=== PATIENT | female | born 1995 | race Caucasian/White ===

== ENCOUNTER → 2018-03-04 10:52 | Outpatient (CLI) | payer BC, SELFPAY ==
[2018-03-04 15:17] LABS: Chlamydia Trachomatis by PCR Negative (Negative); Neisserai gonorrhoeae by PCR Negative (Negative); Probe Check PASS; Sample Adequacy Control PASS; Specimen Processing Control PASS
== END ==
PROVIDERS: Visit Provider Obstetrics & Gynecology
DX: Z11.3 Encounter for screening for infections with a predominantly sexual mode of transmission (principal)
CPT/HCPCS: 87491; 87591

== ENCOUNTER → 2018-03-17 16:14 | Outpatient (CLI) | payer BC, OTHER, SELFPAY ==
[2018-03-17 17:24] LABS: Absolute Lymphocyte Count 3.15 X10^3/ul (0.83-4.51); Basophil# 0.05 X10^3/uL; Basophil% 0.3 % (0-1); Eosinophil# 0.27 X10^3/uL; Eosinophils% 1.8 % (0-5); Hematocrit 42.5 % (37-47); Hemoglobin 14.1 g/dl (12.0-15.0); Lymphocyte # 3.15 X10^3/ul (4.0); Lymphocyte % 21.3 % (19-41); Mean Corp Hgb Conc 33.2 g/gl (32-36); Mean Corpuscular Hgb 28.7 pg (27.0-32.0); Mean Corpuscular Volume 86.4 fL (81-99); Mean Platelet Vol. 9.1 fl (6.2-12.0); Monocyte# 1.26 X10^3/uL; Monocyte% 8.5 % (0-10); Neutrophil # 10.03 X10^3/uL (2.7-7.7); Neutrophil % 67.9 % (47-70); Platelet Count 243 K/mm3 (150-450); RBC Distribution Width SD 41.3 fl (35.1-43.9); Red Blood Count 4.92 M/mm3 (4.2-5.4); White Blood Count 14.8 K/mm3 (4.4-11.0)
[2018-03-17 17:25] LABS: POSITIVE COUNT NO; POSITIVE DIFFERENTIAL NO; POSITIVE MORPHOLOGY NO
[2018-03-17 17:42] LABS: Color, Urine Yellow (Yellow); Glucose, Dipstick Normal (Normal); Ketone-Dipstick Negative (Negative); Leukocyte Esterase-Dipstick Negative /ul (Negative); Nitrite-Dipstick Negative (Negative); Occult Blood-Urine Negative /ul (Negative); Protein-Dipstick Negative (Negative); Urine Bilirubin Dipstick Negative (Negative); Urine Clarity Clear (Clear); Urine Urobilinogen Normal (Normal)
[2018-03-17 17:51] LABS: Thyroid Stim Hormone (TSH) 1.54 uIU/mL (0.358-3.74)
[2018-03-17 18:02] LABS: Amphetamine Urine VISTA NEGATIVE (<1000 ng/mL); Barbiturate Urine VISTA NEGATIVE (< 200 ng/mL); Benzodiazepine Urine VISTA NEGATIVE (< 200 ng/mL); Cocaine Urine VISTA NEGATIVE (< 300 ng/mL); Ecstacy Urine VISTA NEGATIVE (< 500 ng/mL); Methadone Urine VISTA NEGATIVE (< 300 ng/mL); PCP Urine VISTA NEGATIVE (< 25 ng/mL); THC Urine VISTA NEGATIVE (< 50 ng/mL); Vista UDS pH Range 6
[2018-03-17 18:10] LABS: COTININE Drug Screen Positive (<200 ng/mL)
[2018-03-17 18:29] LABS: HIV - WCH Non-Reactive (Nonreactive); Rubella IgG 97.5 IU/mL
[2018-03-19 02:34] LABS: Prenatal RPR NONREACTIVE (NONREACTIVE)
[2018-03-19 11:28] LABS: HEPATITIS B SURFACE AG Negative (Negative); Hep C Antibodies <0.1 s/co ratio (0.0-0.9)
== END ==
LOC: WOBLAB 16:16
PROVIDERS: Visit Provider Obstetrics & Gynecology
DX: Z34.81 Encounter for supervision of other normal pregnancy, first trimester (principal)
CPT/HCPCS: 36415; 80307; 81002; 84443; 85025; 86703; 86762; 86803; 87340

== ENCOUNTER → 2018-08-09 13:28 | Outpatient (CLI) | payer MEDICAID, SELFPAY ==
[2018-08-09 15:47] LABS: Hematocrit 33.9 % (37-47); Hemoglobin 11.4 g/dl (12.0-15.0); Mean Corp Hgb Conc 33.6 g/gl (32-36); Mean Corpuscular Hgb 28.8 pg (27.0-32.0); Mean Corpuscular Volume 85.6 fL (81-99); Mean Platelet Vol. 8.1 fl (6.2-12.0); Platelet Count 294 K/mm3 (150-450); RBC Distribution Width CV 12.8 % (11.6-14.6); RBC Distribution Width SD 40.2 fl (35.1-43.9); Red Blood Count 3.96 M/mm3 (4.2-5.4); White Blood Count 20.6 K/mm3 (4.4-11.0)
[2018-08-09 15:48] LABS: Scan Indicated on CBC? Y/N NO
[2018-08-09 15:52] LABS: Glucose Challenge Gest 1H 50g 103 mg/dL (70-140)
== END ==
PROVIDERS: Visit Provider Obstetrics & Gynecology
DX: Z34.83 Encounter for supervision of other normal pregnancy, third trimester (principal)
CPT/HCPCS: 36415; 82950; 85027

== ENCOUNTER 2018-09-19 21:09 | Outpatient (CLI) | payer MEDICAID, SELFPAY ==
[2018-09-19 21:56] VITALS: BMI 38.2
[2018-09-19] MEDS: Acetaminophen/Butalbital/Caffe 1 Tablet 2 TABLET PO (22:44)
--- NOTE | 2018-09-19 23:55 | OB.TRI.NOTE ---
- Problem List (1) 34 weeks gestation of Status: Acute (2) Headache Status: Acute Qualifiers: Headache chronicity pattern: acute headache Intractability: not intractable (3) False labor Status: Acute History of Present Illness Date of Service: 09/19/18 Was patient seen by the physician?: No Reason For Visit: R/O LABOR Final ISATU: 10/31/18 Final ISATU Source: US <20 weeks Gestational age: 34 weeks 0 days History of Present Illness: 23yo G1 at 34 wga with h/o contractions and headache. Allergies tramadol Adverse Reaction (Verified 09/19/18 22:27) Other NST - FHR Rate Baby A Baseline: 130 Variability:: Moderate Accelerations:: 15 x 15 Decelerations:: None NST Reactive:: Yes FHR Category:: Category I Uterine Activity:: 01/30 Impression/Plan Cat I FHR False labor d/c home
== END 2018-09-20 00:15 | disposition home or self-care (01) ==
LOC: WPOUT 21:41 → WP 21:41
PROVIDERS: Visit Provider Obstetrics & Gynecology
DX: O47.03 False labor before 37 completed weeks of gestation, third trimester (principal); Z3A.34 34 weeks gestation of pregnancy
CPT/HCPCS: 59025; 59050; 99218; G0378

== ENCOUNTER → 2018-10-06 15:10 | Outpatient (CLI) | payer MEDICAID, SELFPAY | PROVIDERS: Visit Provider Obstetrics & Gynecology | DX: Z36.85 Encounter for antenatal screening for Streptococcus B (principal) | CPT/HCPCS: 87081 ==

== ENCOUNTER 2018-10-13 20:47 | Outpatient (CLI) | payer MEDICAID, SELFPAY ==
[2018-10-13 22:12] VITALS: BMI 37.9
--- NOTE | 2018-10-13 23:50 | OB.TRI.NOTE ---
History of Present Illness Date of Service: 10/13/18 Was patient seen by the physician?: No Reason For Visit: R/O LABOR Date of Service: 10/13/18 Final ISATU: 10/31/18 Final ISATU Source: US <20 weeks Gestational age: 37 Weeks and 3 Days History of Present Illness: Complaints of contractions possible leaking amniotic fluid Allergies tramadol Adverse Reaction (Verified 10/13/18 22:17) Other anxiety Physical Exam General: Alert, Oriented x3, Cooperative, No apparent distress Cardiovascular: Regular rate, Regular Rhythm Lungs: Clear to auscultation, Normal air movement Abdomen: Soft, Non Tender, Non-Distended, Gravid, Appropriate for Gestational Age Extremities:: No edema Neurological: Neuro grossly intact ROVING WINDER: Normal external genitalia Estimated gestational size: Appropriate for gestational size Presentation: Cephalic Cervix Dilation (cm): 0 Station: -3 Effacement (%): 25 NST - FHR Rate Baby A Baseline: 130s Variability:: Moderate Accelerations:: 15 x 15 Decelerations:: None NST Reactive:: Yes, Appropriate for gestational age FHR Category:: Category I Uterine Activity:: irregular not felt strongly Impression/Plan ROM + testing negative. UA essentially normal. Cervix closed. Possibly in latent phase labor but no evidence of SROM or active labor.
--- NOTE | 2018-10-13 23:54 | OB.TRI.HP_ITS ---
History of Present Illness Date of Service: 10/13/18 Was patient seen by the physician?: No Reason For Visit: R/O LABOR Date of Service: 10/13/18 Final ISATU: 10/31/18 Final ISATU Source: US <20 weeks Gestational age: 37 Weeks and 3 Days History of Present Illness: Complaints of contractions possible leaking amniotic fluid Allergies tramadol Adverse Reaction (Verified 10/13/18 22:17) Other anxiety Physical Exam General: Alert, Oriented x3, Cooperative, No apparent distress Cardiovascular: Regular rate, Regular Rhythm Lungs: Clear to auscultation, Normal air movement Abdomen: Soft, Non Tender, Non-Distended, Gravid, Appropriate for Gestational Age Extremities:: No edema Neurological: Neuro grossly intact OPEN PIT QUARRY 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 UA essentially normal. Cervix closed. Possibly in latent phase labor but no evidence of SROM or active labor.
[2018-10-14 02:41] LABS: Color, Urine STRAW (Yellow); Glucose, Dipstick NEGATIVE (Normal); Ketone-Dipstick Negative (Negative); Mucous, Urine 0 SEEN /hpf (<or=2+); Red Blood Cells-Urine 0 SEEN /hpf (0-5); Urine Bilirubin Dipstick Negative (Negative); Urine Clarity Clear (Clear)
[2018-10-14 02:42] LABS: Leukocyte Esterase-Dipstick 100 /ul (Negative); Nitrite-Dipstick Negative (Negative); Occult Blood-Urine Negative /ul (Negative); Protein-Dipstick Negative (Negative); Urine Urobilinogen Normal (Normal)
[2018-10-14 02:43] LABS: Bacteria RARE /hpf (None Seen); Squamous Epithelial Cells - UA 0-5 SEEN /hpf (5-10); White Blood Cells 0-5 SEEN /hpf (0-5)
[2018-10-14 02:46] LABS: ROM Internal Control Test YES-OK TO RESULT pt. (Internal QC); ROM Patient Test Negative (Negative)
== END 2018-10-13 22:35 | disposition home or self-care (01) ==
LOC: WPOUT 21:15 → WP 22:03
PROVIDERS: Family Provider Family Medicine; PCP Family Medicine; Referring Provider Obstetrics & Gynecology; Visit Provider Obstetrics & Gynecology
DX: Z34.93 Encounter for supervision of normal pregnancy, unspecified, third trimester (principal)
CPT/HCPCS: 59025; 59050; 81001; 84112; 99218; G0378

== ENCOUNTER 2018-10-28 13:50 | Outpatient (CLI) | payer MEDICAID, SELFPAY ==
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
== END 2018-10-28 15:30 | disposition home or self-care (01) ==
LOC: WPOUT 13:59 → WP 14:00
PROVIDERS: Family Provider Family Medicine; PCP Family Medicine; Referring Provider Obstetrics & Gynecology; Visit Provider Obstetrics & Gynecology
DX: Z34.93 Encounter for supervision of normal pregnancy, unspecified, third trimester (principal)
CPT/HCPCS: 59025; 59050; 99218; G0378

== ENCOUNTER 2018-11-08 19:00 | Inpatient (IN) | payer MEDICAID, SELFPAY ==
[2018-11-08 19:43] VITALS: BMI 38.9
[2018-11-08] MEDS: miSOPROStol 25 MCG TABLET PO (20:20)
[2018-11-08] MEDS: 0.9% Saline Lock 10 ML Syringe IV (20:21)
[2018-11-08 20:50] LABS: Hematocrit 34.8 % (37-47); Hemoglobin 11.4 g/dl (12.0-15.0); Mean Corp Hgb Conc 32.8 g/gl (32-36); Mean Corpuscular Volume 79.5 fL (81-99); Mean Platelet Vol. 8.4 fl (6.2-12.0); Platelet Count 339 K/mm3 (150-450); RBC Distribution Width CV 14.4 % (11.6-14.6); RBC Distribution Width SD 41.1 fl (35.1-43.9); Red Blood Count 4.38 M/mm3 (4.2-5.4); White Blood Count 17.7 K/mm3 (4.4-11.0)
[2018-11-08 20:51] LABS: Scan Indicated on CBC? Y/N NO
[2018-11-09] VITALS (10 sets, daily range): BP systolic 100–135; BP diastolic 49–96; PULSE 78–100; RESP 17–19; TEMP 36.6–37.1; O2SAT 95–99
[2018-11-09] MEDS: miSOPROStol 25 MCG TABLET PO ×2 (00:02→04:29)
[2018-11-09] MEDS: 0.9% Saline Lock 10 ML Syringe IV (08:45)
[2018-11-09] MEDS: Lactated Ringers 1,000 ML 50 ML IV ×4 (08:45→18:30)
[2018-11-09] MEDS: Oxytocin 30 units/NS 500 ml 30 UNITS/500 ML IV.SOLN IV (09:44)
[2018-11-09] MEDS: fentaNYL-bupivacaine (epidural) 100 ML BAG EPIDURAL ×2 (11:00→15:41)
[2018-11-09] MEDS: Ondansetron 4 MG/2 ML Vial IV (12:55)
--- NOTE | 2018-11-09 18:24 | PCM.PN.BLA ---
Progress Note 41 27 wk induction unfavorable cervix Cytotec to pitocin now. Mother in room and states she had to have two C/S deliveries. Pt very comfortable w/ epidural. AVSS Pitocin at 12 mIU/min EFM 120-130s avg variability and accels. Occasional variable. Catetory I tracing UCs q 2-3 mins CX: 4/75/very high. Braden bulb reduced. A/P: 41 2/7 wk induction unfavorabl cervix. progressed from 1-2 / -3 on Cytotec to pitocin. No further progress since 4 cm at noon. 4.5 cm(?) at 1640 check. And on exam still 4/75/very high. VTX unengaged. Advised C/S likely will be needed as no significant cervical change for 6 1/2 hours now. Refuses C/section delivery for now. Recheck in 2 hours. Does not want to discuss C/S. 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 No discussion given.
--- NOTE | 2018-11-09 18:29 | PN_ITS ---
Progress Note 41 27 wk induction unfavorable cervix Cytotec to pitocin now. Mother in room and states she had to have two C/S deliveries. Pt very comfortable w/ epidural. AVSS Pitocin at 12 mIU/min EFM 120-130s avg variability and accels. Occasional variable. Catetory I tracing UCs q 2-3 mins CX: 4/75/very high. Braden bulb reduced. A/P: 41 2/7 wk induction unfavorabl cervix. progressed from 1-2 / -3 on Cytotec to pitocin. No further progress since 4 cm at noon. 4.5 cm(?) at 1640 check. And on exam still 4/75/very high. VTX unengaged. Advised C/S likely will be needed as no significant cervical change for 6 1/2 hours now. Refuses C/section delivery for now. Recheck in 2 hours. Does not want to discuss C/S. Not open at this point to ANY discussion re C/S by myself textile conservator. No discussion given.
[2018-11-09] MEDS: Sodium Citrate/Citric Acid 30 ML UDC PO (19:00)
[2018-11-09] MEDS: Cefazolin 2 GM in 0.9% Normal Saline 100 ML IV (19:21)
[2018-11-09] MEDS: Oxytocin 30 units/NS 500 ml 30 UNITS/500 ML IV.SOLN 167 UNITS IV (19:42)
[2018-11-09] MEDS: Methylergonovine 0.2 MG/ML Ampul IM (19:45)
--- NOTE | 2018-11-09 20:28 | PCM.OPRPT ---
Report of Operation Date of Procedure: 11/09/18 Pre-Operative Diagnosis: Postdate Intrauterine , Failure to Progress Post-Operative Diagnosis: Postdate Intrauterine , Failure to Progress Surgery/Procedure Performed:: Primary Low Transverse Cervical Section Description of Surgical Findings:: Viable female with Apgars of 8/9 and an occiput anterior presentation with meconium stained fluid and three-vessel umbilical cord. Head not well applied in the pelvis. measurement analyst: Maira Oliveros Type of Anesthesia:: Epidural/Supplement - Duramorph Anesthesiologist: Sofi Alcantara Specimen's removed: Placenta to [facility] Drains: Braden to straight drain Estimated Blood Loss (mL): 500 cc Fluids Replaced: Crystalloid Description of Procedure: Surgeon: Geo Haley MD, FACOG Indication: This is a 23-year-old who presented last evening for postdates induction with Cytotec. She was given 3 doses of Cytotec and we were able to rupture membranes this morning with her cervix dilated 2 cm. Patient subsequently progressed to approximately 4-1/2-5 cm by noon but despite adequate contractions noted with an intrauterine pressure catheter the cervix failed to dilate past 4-5 cm for the next 7-8 hours. Station also remained at -2 to -3 station. Given this it was decided to proceed with primary section for failure to progress. care has otherwise been uneventful. The patient has been counseled regarding the risk and indications of this procedure including the possibility of bleeding infection and injury to surrounding structures such as bowel bladder. All questions were answered. Procedure: Patient was taken to the operating room where after spinal anesthesia was placed, the patient was prepped and draped in usual sterile fashion and a Braden catheter was placed. The abdomen was entered through a Pfannenstiel incision and peritoneum was entered bluntly. After developing a bladder flap on the lower uterine segment a low transverse incision was made on the uterus and head was easily delivered onto the operative field the nose mouth and oropharynx were bulb suctioned. Subsequently a viable female infant was born with Apgars of 8/9. The was noted to cry move all extremities vigorously on the operative field. The umbilical cord was doubly clamped and ligated and handed to the nursery personnel who were present for the delivery. Placenta was delivered and noted to be 3 vessels and normal. Uterus was exteriorized and remaining placental tissue was removed. The uterus was then closed in 2 layers first with running locked 0 Vicryl suture followed by a second imbricating layer with 0 Vicryl suture. 0 Vicryl suture was then used in a horizontal mattress interrupted fashion to affect final hemostasis of the uterine incision line. Normal fallopian tubes and ovaries were visualized and the uterus was returned to the pelvis. Hemostasis was noted and rectus abdominis muscles were reapproximated in the midline with interrupted Number 0 Vicryl suture in a horizontal mattress fashion. Fascia was closed with running Number 1 PDS Strata fix suture. Subcutaneous tissue was irrigated with copious amounts of saline solution and then closed with running 3-0 Vicryl suture. Skin was closed with 4-0 monocryl suture in a running subcuticular fashion. Steri strips, telfa, and tape were placed across the incision. The patient tolerated the procedure well and was taken to the recovery room in satisfactory condition. Sponge, needle, and instrument counts were all reportedly correct. EBL was less than 500 cc. Ancef 2 gms IV was given prior to the procedure. Specimen to Pathology: None Grafts/Implants Used: None - Complications None - Admit VTE Documentation VTE Present on Admission: Yes VTE Mechan Device Prophylaxis: SCD's VTE Pharm Prophylaxis ordered?: No Reason prophylaxis not ordered:: Treatment Not Indicated
--- NOTE | 2018-11-09 20:37 | OP.PCM_ITS ---
Report of Operation Date of Procedure: 11/09/18 Pre-Operative Diagnosis: Postdate Intrauterine , Failure to Progress Post-Operative Diagnosis: Postdate Intrauterine , Failure to Progress Surgery/Procedure Performed:: Primary Low Transverse Cervical Section Description of Surgical Findings:: Viable female with Apgars of 8/9 and an occiput anterior presentation with meconium stained fluid and three-vessel umbilical cord. Head not well applied in the pelvis. treasury accountant: Maira Oliveros Type of Anesthesia:: Epidural/Supplement - Duramorph Anesthesiologist: Sofi Alcantara Specimen's removed: Placenta to [facility] Drains: Braden to straight drain Estimated Blood Loss (mL): 500 cc Fluids Replaced: Crystalloid Description of Procedure: Surgeon: Geo Haley MD, FACOG Indication: This is a 23-year-old who presented last evening for postdates induction with Cytotec. She was given 3 doses of Cytotec and we were able to rupture membranes this morning with her cervix dilated 2 cm. Patient subseq uently progressed to approximately 4-1/2-5 cm by noon but despite adequate contractions noted with an intrauterine pressure catheter the cervix failed to dilate past 4-5 cm for the next 7-8 hours. Station also remained at -2 to -3 station. Given this it was decided to proceed with primary section for failure to progress. care has otherwise been uneventful. The patient has been counseled regarding the risk and indications of this procedure including the possibility of bleeding infection and injury to surrounding structures such as bowel bladder. All questions were answered. Procedure: Patient was taken to the operating room where after spinal anesthesia was placed, the patient was prepped and draped in usual sterile fashion and a Braden catheter was placed. The abdomen was entered through a Pfannenstiel incision and peritoneum was entered bluntly. After developing a bladder flap on the lower uterine segment a low transverse incision was made on the uterus and head was easily delivered onto the operative field the nose mouth and oropharynx were bulb suctioned. Subsequently a viable female infant was born with Apgars of 8/9. The was noted to cry move all extremities vigorously on the operative field. The umbilical cord was doubly clamped and ligated and handed to the nursery personnel who were present for the delivery. Placenta was delivered and noted to be 3 vessels and normal. Uterus was exteriorized and remaining placental tissue was removed. The uterus was then closed in 2 layers first with running locked 0 Vicryl suture followed by a second imbricating layer with 0 Vicryl suture. 0 Vicryl suture was then used in a horizontal mattress interrupted fashion to affect final hemostasis of the uterine incision line. Normal fallopian tubes and ovaries were visualized and the uterus was returned to the pelvis. Hemostasis was noted and rectus abdominis muscles were reapproximated in the midline with interrupted Number 0 V icryl suture in a horizontal mattress fashion. Fascia was closed with running Number 1 PDS Strata fix suture. Subcutaneous tissue was irrigated with copious amounts of saline solution and then closed with running 3-0 Vicryl suture. Skin was closed with 4-0 monocryl suture in a running subcuticular fashion. Steri strips, telfa, and tape were placed across the incision. The patient tolerated the procedure well and was taken to the recovery room in satisfactory condition. Sponge, needle, and instrument counts were all reportedly correct. EBL was less than 500 cc. Ancef 2 gms IV was given prior to the procedure. Specimen to Pathology: None Grafts/Implants Used: None - Complications None - Admit VTE Documentation VTE Present on Admission: Yes VTE Mechan Device Prophylaxis: SCD's VTE Pharm Prophylaxis ordered?: No Reason prophylaxis not ordered:: Treatment Not Indicated
--- NOTE | 2018-11-09 20:41 | DCINST_ITS ---
Discharge Diet: No Restrictions Discharge Activity: May not drive while taking narcotic pain medications., May Shower, May Take a Tub Bath May resume sexual activity in: 4-6 weeks Lifting Restrictions: 20 pounds Additional Activity Instructions:: Nothing in the vagina for 4-6 weeks. You may return to work/school in 6 weeks. Call your doctor if your incision/area has: Continuous Slow Oozing, Sudden Increased Bleeding, Increased Pain/ Swelling, Increased Redness, Foul Smelling Discharge Call your doctor if you observe: Fever of 101 or Higher, Inability to urinate, Inability to have a bowel movement, Using more than one pad per hour Additional Instructions: If you experience any of the following, contact your healthcare provider. * Bleeding that soaks a pad every hour for 2 hours * Unrelieved incision or abdominal pain * Swelling, redness, discharge or bleeding from your incision or episiotomy site * Your incision begins to separate * Problems urinating (including inability to urinate or burning while urinating). * Visual changes * Severe headache * Flu-like symptoms * Pain or redness in one of both of your breasts * Pain, warmth, tenderness or swelling in your legs, especially the calf area * Frequent nausea and vomiting * Symptoms of depression or anxiety If you experience any of the following, call 911 or go to the nearest Emergency Room. * Chest pain * Problems breathing * Seizure activity * Partial or complete paralysis of a body part, slurred speech, weakness or drooping of the face, or a sudden inability to walk or hold your balance Allergies/Adverse Reactions: Allergies tramadol Adverse Reaction (Verified 10/13/18 22:17) Other anxiety Medications to take at Discharge Vits [Prenatabs FA] 1 tablet PO DAILY 10/13/18 Docusate Sodium [Colace] 100 mg PO BID PRN PRN #60 cap 11/09/18 Oxycodone [Oxyir] 5 mg PO Q6H PRN PRN 7 Days #20 tab 11/09/18 The following prescriptions were given: Oxycodone [Oxyir] 5 mg PO Q6H PRN PRN 7 Days #20 tab PRN Reason: Severe Pain (6-09/01) Docusate Sodium [Colace] 100 mg PO BID PRN PRN #60 cap PRN Reason: Constipation Follow-Up: Call to make an appointment with your doctor for an incision check in 1-2 weeks. You will also need a 6 week post- follow up appointment. Test results from this visit will be discussed in further detail at your follow- up appointment, if applicable. Please Follow Up With: Geo Haley MD - [phone] When: Call to make an appointment for an incision check in 2 weeks. Primary Care Physician: Arianne Ball MD [Primary Care Provider] -
[2018-11-09] MEDS: Lactated Ringers 1,000 ML 100 ML IV (22:36)
[2018-11-10] VITALS (18 sets, daily range): BP systolic 98–117; BP diastolic 50–70; PULSE 89–121; RESP 16–20; TEMP 36.4–37.2; O2SAT 91–98
[2018-11-10] MEDS: Ketorolac 30 MG/ML Syringe IV ×4 (01:30→19:00)
[2018-11-10] MEDS: Cefazolin 1 GM/50 ML BAG IV ×2 (02:30→11:32)
[2018-11-10 06:32] LABS: Hematocrit 28.4 % (37-47); Hemoglobin 9.3 g/dl (12.0-15.0); Mean Corp Hgb Conc 32.7 g/gl (32-36); Mean Corpuscular Hgb 26.5 pg (27.0-32.0); Mean Corpuscular Volume 80.9 fL (81-99); Mean Platelet Vol. 8.8 fl (6.2-12.0); Platelet Count 254 K/mm3 (150-450); RBC Distribution Width CV 14.5 % (11.6-14.6); RBC Distribution Width SD 41.1 fl (35.1-43.9); Red Blood Count 3.51 M/mm3 (4.2-5.4); Scan Indicated on CBC? Y/N NO; White Blood Count 17.8 K/mm3 (4.4-11.0)
--- NOTE | 2018-11-10 06:48 | NURSING ---
RN attempted to teach pt. how to hand express to feed since infant is no showing interest in latching. Pt. listened to description of hand expression then refused saying she was not comfortable doing so.
[2018-11-10] MEDS: Lactated Ringers 1,000 ML 100 ML IV (07:03)
[2018-11-10] MEDS: 0.9% Saline Lock 10 ML Syringe IV ×3 (07:51→19:00)
--- NOTE | 2018-11-10 09:06 | PCM.PN.OB ---
Subjective: Patient without complaints. Tolerating diet well. Positive flatus. Pain well controlled. Minimal vaginal bleeding reported. Baby has not yet breast-feeding well. - Physical Exam Vital Signs Temp Pulse Resp BP Pulse Ox 97.6 F L 109 H 20 H 98/50 L 96 11/10/18 07:49 11/10/18 07:49 11/10/18 07:49 11/10/18 07:49 11/10/18 07:49 Oxygen Delivery Method Room Air Weight: 241 lb 6 oz Body Mass Index (BMI) 38.9 Intake and Output for Last 24 Hours 11/08/18 11/09/18 11/10/18 23:59 23:59 23:59 Intake Total 3217 / 3217 979 / 979 Output Total 1850 / 1850 450 / 450 Balance 1367 / 1367 529 / 529 Laboratory Tests Past 24 Hrs 11/10/18 06:25 WBC 17.8 H RBC 3.51 L Hgb 9.3 L Hct 28.4 L MCV 80.9 L MCH 26.5 L MCHC 32.7 RDW 14.5 RDW Differential 41.1 Plt Count 254 MPV 8.8 Wound is clean, dry, intact. Good urine output. Hemoglobin okay. Medical Necessity - Tobacco Use Smoking Status: Light Smoker (<10/day) Assessment/Plan All Active Problems 34 weeks gestation of (Acute) Headache (Acute) False labor (Acute) Doing well postoperative day #1 status post primary section for failure to progress. Continuing present care.
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
[2018-11-10] MEDS: Senna/Docusate Sodium 1 Tablet PO (19:00)
[2018-11-10] MEDS: oxyCODONE 5 MG Tablet PO (20:38)
[2018-11-11] MEDS: 0.9% Saline Lock 10 ML Syringe IV ×4 (02:18→19:38)
[2018-11-11] MEDS: Ketorolac 30 MG/ML Syringe IV ×4 (02:18→19:38)
[2018-11-11 02:22] VITALS: BP 101/57; PULSE 101; RESP 17; TEMP 37.1; O2SAT 96
[2018-11-11] MEDS: oxyCODONE 5 MG Tablet PO ×3 (03:09→13:39)
--- NOTE | 2018-11-11 03:56 | NURSING ---
RN reminded pt. that infants need fed every 2-3 hours and that it had been four hours since the last feed. RN asked if there has been a nursing attempt since the last feed to which the mother responded no, I've only slept two hours. RN left room and gave mother some time to get infant and feed her. Upon return to room, mother was sleeping while was laying in the crib. was awake and showing feeding cues. RN woke pt. up and reminded her again that it had been four hours since fed last and she needed to eat. RN offered to support mother in whatever her feeding choice for the infant may be, and offered to help latch, hand express, pump, or formula feed. Pt. stated I don't know when RN offered choices. RN handed infant to pt. and pt. held but did not attempt to feed at this time. Nursery and charge nurses informed that pt. is currently refusing to feed .
--- NOTE | 2018-11-11 04:57 | NURSING ---
Nursery nurse called this RN and reported that pt. fed via hand expression and spoon feeding.
[2018-11-11] MEDS: Senna/Docusate Sodium 1 Tablet PO (07:54)
[2018-11-11 08:20] VITALS: BP 115/75; PULSE 105; RESP 24; TEMP 36.5
--- NOTE | 2018-11-11 09:06 | PCM.PN.OB ---
Subjective: Patient without complaints. Tolerating diet well. Wants to stay until tomorrow. - Physical Exam Vital Signs Temp Pulse Resp BP Pulse Ox 98.7 F 101 H 17 101/57 L 96 11/11/18 02:22 11/11/18 02:22 11/11/18 02:22 11/11/18 02:22 11/11/18 02:22 Oxygen Delivery Method Room Air Weight: 241 lb 6 oz Body Mass Index (BMI) 38.9 Intake and Output for Last 24 Hours 11/09/18 11/10/18 11/11/18 23:59 23:59 23:59 Intake Total 3217 / 3217 1627 / 1627 Output Total 1850 / 1850 2650 / 2650 Balance 1367 / 1367 -1023 / -1023 Wound is clean, dry, intact. Good urine output. Medical Necessity - Tobacco Use Smoking Status: Light Smoker (<10/day) Assessment/Plan All Active Problems 34 weeks gestation of (Acute) Headache (Acute) False labor (Acute) Doing well postoperative day #2 status post primary section for failure to progress. Continuing present care. Anticipate release to home tomorrow.
[2018-11-11] MEDS: Ondansetron 4 MG/2 ML Vial IV (09:07)
[2018-11-11 13:46] VITALS: BP 123/66; PULSE 94; RESP 16; TEMP 36.6
--- NOTE | 2018-11-11 17:00 | CASEMGMT ---
Social Work Labor and Delivery Unit Date of Intervention: 11-11-2018 Summary: 1145: Received reports from nursing staff about mother of baby (MOB) not feeding baby in recommended intervals and refusing to adhere to nursing recommendations for feeding baby. Chart reviewed. Met with MOB and with MOB?s permission, the MOB?s mother Ciera Parekh present in room. Addressed with MOB how things are going right now for self and for care of baby. MOB discussed feeling that has been feeding the baby, though acknowledges baby did go for a long period of time without feeding. MOB attributes this to having visitors and not wanting to breast feed with visitors present nor MOB feeling like is producing any milk, or even colostrum, to feed the baby. MOB reporting that last fed the baby ?a little bit ago,? about an hour ago. MOB?s mother voiced that the feeding had been more recent than what MOB is reporting. Addressed with MOB that managing a new baby can be hard, that there will be challenges, but that is very important that feedings are attempted with recommendation for newborns being between 2-4 hour intervals. Broached with MOB what MOB?s wishes really are for feeding the baby. MOB reports would like to breast feed, that is okay with formula too however, but also struggling with the perception that other people will dog show judge MOB for giving baby formula. Talked with MOB that staff is here to support MOB?s desires to feed the baby, that while breast feeding is supported, also is MOB?s ultimate feeding wishes for baby. Let MOB know that at the end of the day it is MOB who must care for the baby, so it is MOB who needs to voice what her wishes are, but that MOB does have to try to feed her baby. Discussed with MOB importance of proper nutrition for self, that some mothers pump to speed up milk production. Discussed breast feeding exclusively, breast feeding and then supplementing with formula, or just formula feeding. MOB voicing struggle that is not producing anything, so is leaning towards formula, but having a hard time voicing that wants some formula to try. This loan underwriter let MOB know that nursing and specialists can talk with MOB on ways to feed baby formula other than through a nipple if MOB does want to supplement formula until MOB feels her milk has come in, but that MOB does need to make some decisions on what wants to do and if chooses to breast feed then may need to accept some help from nursing about this. Broached with MOB, in a general way, that some women are not comfortable feeding from the breast due to own personal histories, and that this is okay too, that it is just important that mothers acknowledge current state and what feels comfortable with. MOB voiced that understands that breast feeding can be a trigger for some people with past trauma (of which was not discussed this date, but that MOB dose reportedly have some history of in the past). Talked with MOB about it being common for babies to lose some weight before home going, but that at a certain point health care provides become concerned and babies can lose weight quickly, so again reinforcing importance for MOB to focus on baby?s feeding needs. This loan underwriter point blank asked MOB what MOB?s wishes are for feeding as need to get some consistent feedings in before baby goes home. MOB?s mother voiced support that MOB should try some formula. MOB then looked at this loan underwriter and voiced that wants to try formula as well as breast feeding. Agreed to let nursing know. Note, MOB?s mother did voice during this interaction that MOB will be going home with baby to MOB?s mother?s home and then also to MOB?s father?s home, that MOB is welcome at either home for as long as needed, and that family will be supporting MOB in ensuring that both MOB?s and baby?s needs are being met. During this conversation MOB voiced willingness to have a Help Me Grow referral, as well as for a referral to [facility] for outpatient mental health counseling. Release to [facility] signed. 1700: Spoke with nursing staff, and the MOB has been feeding baby throughout the day, has been using formula. MOB reports understanding that baby needs to be fed on a feeding schedule right now, that MOB needs to make attempts. MOB voices that things are much better since giving baby formula. Met with MOB and MOB?s mother again in room. MOB reports has been using formula, and that feels this is going well. MOB and MOB?s mother reports can purchase some formula until MOB gets into [facility]. Provided MOB with outpatient mental health appointment at [facility] for 11-30-18 at 1015 with Janay. Both MOB and MOB?s mother put the appointment information into their respective phones. Assessment: MOB irritable, short in answers initially, when social problems specialist met with MOB this morning, as discussion ensued about importance of feeding the baby and allowing staff to help. MOB cooperative with this loan underwriter however, and was attentive to baby during social work visit, holding baby, rubbing baby?s back. Baby did show evidence of being hungry during the morning visit as this loan underwriter observed baby to be aggressively sucking on a pacifier, in fact this loan underwriter could hear the suction sound baby was making as sucking on the pacifier. MOB was receptive to social work education and reinforcement that it is time to get the baby fed, as well as sharing some thoughts/feelings about breast feeding. During intervention with MOB in the afternoon, MOB appearing more relaxed, smiling, and still attending to baby when social problems specialist was present. MOB and MOB?s mother both voiced that talk this morning with social problems specialist was helpful, appreciate the explanations on importance of keeping baby on a feeding schedule. MOB able to voice understanding of importance to feed the baby, has been feeding the baby since giving baby formula, and MOB?s mother is stating intent to help MOB with care of baby at home going, that MOB?s mother understands that baby must be fed. MOB's mother voiced thanks for this loan underwriter taking time with MOB today on explanations given. MOB is showing positive regard for baby, is accepting [facility] referral for added support, as well as being proactive and entering mental health counselling for more support and monitoring for depression and anxiety. Intervention: Juan discussion with MOB and family about feeding baby, education on importance, while also acknowledging MOB as decision maker as the mother of . Outpatient mental health appointment made for 11-30-18 at 1015. Plan: MOB is taking baby home with family support and help for a few weeks. [facility] resource packet provided. PPD packet given and explained. Outpatient mental health follow up scheduled at [facility]. Will make [facility] referral, which will be another support to MOB at home. No other services requested or indicated. -TORSTEN Diaz, SPECTRAL SCIENTIST
[2018-11-11 19:49] VITALS: BP 136/81; PULSE 89; RESP 18; TEMP 36.9
--- NOTE | 2018-11-12 01:12 | PCM.DC.BLA ---
Discharge Summary Date of Admission: 11/08/18 Date of Discharge: 11/11/18 Summary: Admission diagnosis: Postdate Intrauterine Discharge diagnosis: Postdate Intrauterine And Failure to Progress Procedure: Primary Low Transverse Cervical Section HPI: Uneventful care. PE: Unremarkable. Hospital Course: The patient is a 23 year old G 1 P 0 who presented to L and D at 41 weeks gestation. She subsequently had a primary for failure to progress. She was given 3 doses of Cytotec and we were able to rupture membranes with her cervix dilated 2 cm. Patient subsequently progressed to approximately 4-1/2-5 cm by noon but despite adequate contractions noted with an intrauterine pressure catheter the cervix failed to dilate past 4-5 cm for the next 7-8 hours. Station also remained at -2 to -3 station. Given this it was decided to proceed with primary section for failure to progress. Postoperatively she did well demonstrating a stable HGB on POD 1 and bowel fxn by POD #2 at which time it was felt she was ready for discharge. Homegoing Instruction: She was instructed not to drive for several days or if using narcotic pain medication, not to put anything in the vagina for 4 weeks, not to lift >25 lbs for 6 weeks and to call the office for an appointment in 2 weeks and 6 weeks. Discharge Medications: She was given a prescription for Oxycodone and Colace and also plans to use Aleve or Motrin or Tylenol at home as needed for pain and constipation. - Physical Exam Vital Signs Temp Pulse Resp BP Pulse Ox 98.4 F 89 18 136/81 H 96 11/11/18 19:49 11/11/18 19:49 11/11/18 19:49 11/11/18 19:49 11/11/18 02:22 Oxygen Delivery Method Room Air Weight: 241 lb 6 oz Body Mass Index (BMI) 38.9 Intake and Output for Last 24 Hours 11/10/18 11/11/18 11/12/18 23:59 23:59 23:59 Intake Total 1627 / 1627 Output Total 2650 / 2650 Balance -1023 / -1023
--- NOTE | 2018-11-18 12:07 | CASEMGMT ---
Social Work Labor and Delivery Help Me Grow referral submitted via the [facility]'s secure web based referral system. No other services requested or indicated. -CHILANGO Diaz, SALE PROFESSIONAL DIGITAL MARKETING
--- OUTSIDE RECORDS SUMMARY | 2019-02-10 09:57 | XMS RPT_ITS ---
:1995 Author Organization [place] Support Name Relationship Address Phone Orville Carter Unavailable Unavailable + Alex Martinezannine Unavailable Unavailable + ORVILLE CARTER Unavailable [address] + [place] [address] EMELINA GLORIA Unavailable [address] + [place] [address] [place] Unavailable [address] + [place] [address] ORVILLE CARTER Unavailable [address] + [place] [address] EMELINA, GLORIA Unavailable [address] + [place] [address] [place] Unavailable [address] + [place] [address] ORVILLE CARTER Unavailable [address] + [place] [address] EMELINA, GLORIA Unavailable [address] + [place] [address] [place] Unavailable [address] + [place] [address] EMELINA, GLORIA Unavailable [address] + [place] [address] [place] Unavailable [address] + [place] [address] EMELINA, GLORIA Unavailable [address] + [place] [address] [place] Unavailable [address] + [place] [address] EMELINA, GLORIA Unavailable [address] + [place] [address] [place] Unavailable [address] + [facility] [place] [address] BOOGIE, GLORIA Unavailable Unavailable + BOOGIE, GLORIA Unavailable Unavailable + BOOGIE, GLORIA Unavailable Unavailable + BOOGIE, GLORIA Unavailable Unavailable + BOOGIE, GLORIA Unavailable Unavailable + EMELINA, GLORIA Unavailable [address] + [place] [address] [place] Unavailable [address] + [place] [address] EMELINA, GLORIA Unavailable [address] + [place] [address] [place] Unavailable [address] + [place] [address] Care Team Providers Name Role Phone ANGELIHARLEY MACEDOYNE Attending Unavailable AMAIRANI YORK, DR. ORNELAS Primary Care Unavailable BRIDGET YORK, DR. BROWN Attending Unavailable AMAIRANI YORK, DR. ORNELAS Primary Care Unavailable KENYON AUSTIN Attending Unavailable AMAIRANI YORK, DR. ORNELAS Primary Care Unavailable HELENA FRYE (NIGHT AUDITOR) Attending Unavailable RAJIV OLIVER Attending Unavailable ZOILA CHAVEZ Attending Unavailable PROVIDER, UNKNOWN Referring Unavailable Miedvin, Arianne Primary Care Unavailable Geo Haley Attending Unavailable Geo Haley Attending Unavailable Primay Care Physicia, No Primary Care Unavailable Geo Haley Attending Unavailable Primay Care Physicia, No Primary Care Unavailable Nevin Gambino Attending Unavailable Primay Care Physicia, No Primary Care Unavailable Geo Haley Attending Unavailable Primay Care Physicia, No Primary Care Unavailable Geo Haley Admitting Unavailable Geo Haley Attending Unavailable Geo Haley Referring Unavailable Miedvin, Arianne Primary Care Unavailable Baljinder Laguna Attending Unavailable Quinn, Arianne Primary Care Unavailable Baljinder Laguna Referring Unavailable Geo Haley Attending Unavailable Geo Haley Referring Unavailable Arianne Ball Primary Care Unavailable PROBLEMS PROBLEMS DATE TYPE CONDITION / CODE ATTENDING STATUS SOURCE 11/14/2018 Admitting Other chest pain / ZOILA CHAVEZ Active the [facility] Diagnosis R07.89(ICD-10) [facility] Repository 11/14/2018 Admitting Pleural effusion, ZOILA CHAVEZ Active the [facility] Diagnosis not elsewhere [facility] classified / Repository J90(ICD-10) 11/14/2018 Admitting Allergy status to ZOILA CHAVEZ Active the [facility] Diagnosis narcotic agent [facility] System status / Repository Z88.5(ICD-10) 11/14/2018 Admitting Chest pain, ZOILA CHAVEZ Active the [facility] Diagnosis unspecified / [facility] System R07.9(ICD-10) Repository 11/11/2018 Unknown G89.18 - Other acute Geo Haley postprocedural pain Community / G89.18(ICD-10) Hospital Repository 10/06/2018 Unknown Z36.85 - Encounter Geo Haley for Community screening for Hospital Streptococcus B / Repository Z36.85(ICD-10) 08/09/2018 Unknown Z34.83 - Encounter Geo Haley for supervision of Community other normal Hospital , third Repository trimester / Z34.83(ICD-10) 03/17/2018 Unknown Z34.81 - Encounter Geo Haley for supervision of Community other normal Hospital , first Repository trimester / Z34.81(ICD-10) 03/04/2018 Unknown Z11.3 - Encounter Geo Haley for screening for Community infections with a Hospital predominantly sexual Repository mode of transmission / Z11.3(ICD-10) PROCEDURES PROCEDURES No Procedure Records FoundRESULTS RESULTS PROGRESS Observed: 11/17/2018 Status: COMPLETED Source: [facility] [place]21 [facility] REPOSITORY HNO ID: [id number] Author: Leola Mejía (Jeanette Garcia Service: (none) Author Type: Nurse Practitioner Type: Progress Notes Filed: 11/17/2018 3:16 PM Note Text: Subjective HPI Patient presents with: Chest Congestion: cough x 1 week Pt status post c/s 11/09. States symptoms started 2 days later. Seen in ED Wednesday 11/14 for atypical chest pain, states no longer having chest pain symptoms. Review of Systems Constitutional: Positive for chills and fever. Negative for malaise/fatigue. HENT: Positive for congestion and sore throat. Negative for ear pain. Eyes: Negative for discharge and redness. Respiratory: Positive for cough. Negative for hemoptysis, sputum production, shortness of breath and wheezing. Cardiovascular: Negative for chest pain, palpitations and leg swelling. Gastrointestinal: Negative for abdominal pain, diarrhea, nausea and vomiting. Skin: Negative for rash. Neurological: Negative for headaches. PAST MEDICAL HISTORY Diagnosis Date - Anxiety disorder 02/04/2013 (02/25/16): followed by psychiatry - Arthritis (02/25/16): previously seen by ortho - Constipation 02/04/2013 - Environmental allergies (02/25/16): seeing ENT - Environmental allergies 02/25/2016 - Hydradenitis 2011 Per dermatology - Migraine headache 08/09/2014 - Overweight 02/25/2016 - PMH - PAST MEDICAL HISTORY OF 01/29/2005 color vision - Polyarthralgia 02/25/2016 - PTSD (post-traumatic stress disorder) 02/04/2013 (02/25/16): followed by psychiatry - Severe depression (HCC) (02/25/16): followed by psychiatry PAST SURGICAL HISTORY Procedure Laterality Date - EXTRACTION ERUPTED TOOTH/EXR 03/28/15 all 4 wisdom teeth ALLERGIES Environmental [Other]; Tramadol MEDICATIONS albuterol (PROVENTIL) 2.5 mg /3 mL (0.083 %) nebulizer solution Use 3 mL via nebulizer every 6 hours as needed. 1 vial contains 3 ml. amoxicillin-clavulanic acid (AUGMENTIN) 875-125 mg per tablet Take 1 tablet by mouth twice daily for 10 days. clonazePAM (KLONOPIN) 0.5 mg tablet Take 0.5 mg by mouth twice daily as needed. dextroamphetamine-amphetamine (ADDERALL) 10 mg tablet Take 10 mg by mouth once daily. diphenhydrAMINE (BENADRYL) 25 mg capsule Take 1 capsule by mouth at bedtime as needed. Etonogestrel-Ethinyl Estradiol (NUVARING) 0.12-0.015 mg/24 hr vaginal ring Use 1 Each vaginally as directed. Insert vaginally and leave in place for 3 consecutive weeks, then remove for 1 week. predniSONE (DELTASONE) 20 mg tablet Take 2 tablets by mouth once daily for 5 days. Take daily with food. pseudoephedrine (SUDAFED) 60 mg tablet Take 1 tablet by mouth every 6 hours as needed. FAMILY HISTORY Problem Relation Age of Onset - Asthma Mother - Thyroid Mother - other (sciatic nerve issues) Mother - other (carpal tunnel) Mother - other (Constipation) Father As a younger child - Colon Cancer Maternal Grandfather - Asthma Maternal Grandmother - Cancer Maternal Grandmother Uterine - GI Maternal Grandmother reflux - Breast Cancer Maternal Grandmother This was great grandmother - other (spinal stenosis) Maternal Grandmother - other (Spinal Stenosis) Maternal Aunt - other (Spinal Stenosis) Maternal Uncle - other (depression) Other maternal side - Diabetes Maternal Uncle - Lipids Maternal Uncle - other (hereditary angioedema) Maternal Aunt Social History Substance Use Topics - Smoking status: Current Every Day Smoker Packs/day: 0.50 Types: Cigarettes - Smokeless tobacco: Never Used - Alcohol use Yes Comment: social Objective Physical Exam Constitutional: She is well-developed, well-nourished, and in no distress. HENT: Head: Normocephalic. Right Ear: Tympanic membrane, external ear and ear canal normal. Left Ear: Tympanic membrane, external ear and ear canal normal. Nose: Rhinorrhea present. Right sinus exhibits no maxillary sinus tenderness and no frontal sinus tenderness. Left sinus exhibits no maxillary sinus tenderness and no frontal sinus tenderness. Mouth/Throat: Posterior oropharyngeal erythema (PND) present. Eyes: Conjunctivae are normal. Neck: Normal range of motion. Neck supple. Cardiovascular: Normal rate, regular rhythm and normal heart sounds. Pulmonary/Chest: Effort normal. No respiratory distress. She has no wheezes. She has rhonchi (faint scattered rhonchi, good air exchange). Abdominal: Soft. She exhibits no distension. There is no tenderness. Lymphadenopathy: She has no cervical adenopathy. Skin: Skin is warm and dry. No rash noted. Nursing note and vitals reviewed. ASSESSMENT/PLAN: 1. Acute bronchitis, unspecified organism - ICD9: 466.0, ICD10: J20.9 -Augmentin -Prednisone -Albuterol nebulizer treatments at home PRN -F/u with pcp in 3-5 days or sooner if symptoms are not improving or worsening -Pt has an personnel generalist manager f/u directly after this visit, encouraged pt to notify Of orders, pt. verbalized understanding. Prescription instructions reviewed with patient as applicable. Patient advised if symptoms do not improve or if symptoms worsen sooner, to contact their primary care physician. Potential red flag symptoms discussed with the patient. Reviewed appropriate action plan to take if red flag symptoms occur. Patient agreeable to treatment plan. Leola Garcia APRN.PRABHAKAR CNOV Observed: 11/17/2018 Status: COMPLETED Source: [facility] [place] 2:[address] [facility] REPOSITORY Office Visit ([facility]) MYRNA CARTER ([id number]) 1995 F Date Time Provider Department 11/17/18 2:15 PM LEOLA GARCIA (HAIRSPRING CUTTER) WSTR During your visit today, we recorded the following information about you: Temperature Pulse Respiration Blood pressure 99.3 degrees 86/minute 18/minute 110/70 Weight 102.1 kg Leola Garcia APRN.CNP 11/17/2018 3:16 PM Signed Subjective HPI Patient presents with: Chest Congestion: cough x 1 week Pt status post c/s 11/09. States symptoms started 2 days later. Seen in ED Wednesday 11/14 for atypical chest pain, states no longer having chest pain symptoms. Review of Systems Constitutional: Positive for chills and fever. Negative for malaise/fatigue. HENT: Positive for congestion and sore throat. Negative for ear pain. Eyes: Negative for discharge and redness. Respiratory: Positive for cough. Negative for hemoptysis, sputum production, shortness of breath and wheezing. Cardiovascular: Negative for chest pain, palpitations and leg swelling. Gastrointestinal: Negative for abdominal pain, diarrhea, nausea and vomiting. Skin: Negative for rash. Neurological: Negative for headaches. PAST MEDICAL HISTORY Diagnosis Date - Anxiety disorder 02/04/2013 (02/25/16): followed by psychiatry - Arthritis (02/25/16): previously seen by ortho - Constipation 02/04/2013 - Environmental allergies (02/25/16): seeing ENT - Environmental allergies 02/25/2016 - Hydradenitis 2011 Per dermatology - Migraine headache 08/09/2014 - Overweight 02/25/2016 - PMH - PAST MEDICAL HISTORY OF 01/29/2005 color vision - Polyarthralgia 02/25/2016 - PTSD (post-traumatic stress disorder) 02/04/2013 (02/25/16): followed by psychiatry - Severe depression (HCC) (02/25/16): followed by psychiatry PAST SURGICAL HISTORY Procedure Laterality Date - EXTRACTION ERUPTED TOOTH/EXR 03/28/15 all 4 wisdom teeth ALLERGIES Environmental [Other]; Tramadol MEDICATIONS albuterol (PROVENTIL) 2.5 mg /3 mL (0.083 %) nebulizer solution Use 3 mL via nebulizer every 6 hours as needed. 1 vial contains 3 ml. amoxicillin-clavulanic acid (AUGMENTIN) 875-125 mg per tablet Take 1 tablet by mouth twice daily for 10 days. clonazePAM (KLONOPIN) 0.5 mg tablet Take 0.5 mg by mouth twice daily as needed. dextroamphetamine-amphetamine (ADDERALL) 10 mg tablet Take 10 mg by mouth once daily. diphenhydrAMINE (BENADRYL) 25 mg capsule Take 1 capsule by mouth at bedtime as needed. Etonogestrel-Ethinyl Estradiol (NUVARING) 0.12-0.015 mg/24 hr vaginal ring Use 1 Each vaginally as directed. Insert vaginally and leave in place for 3 consecutive weeks, then remove for 1 week. predniSONE (DELTASONE) 20 mg tablet Take 2 tablets by mouth once daily for 5 days. Take daily with food. pseudoephedrine (SUDAFED) 60 mg tablet Take 1 tablet by mouth every 6 hours as needed. FAMILY HISTORY Problem Relation Age of Onset - Asthma Mother - Thyroid Mother - other (sciatic nerve issues) Mother - other (carpal tunnel) Mother - other (Constipation) Father As a younger child - Colon Cancer Maternal Grandfather - Asthma Maternal Grandmother - Cancer Maternal Grandmother Uterine - GI Maternal Grandmother reflux - Breast Cancer Maternal Grandmother This was great grandmother - other (spinal stenosis) Maternal Grandmother - other (Spinal Stenosis) Maternal Aunt - other (Spinal Stenosis) Maternal Uncle - other (depression) Other maternal side - Diabetes Maternal Uncle - Lipids Maternal Uncle - other (hereditary angioedema) Maternal Aunt Social History Substance Use Topics - Smoking status: Current Every Day Smoker Packs/day: 0.50 Types: Cigarettes - Smokeless tobacco: Never Used - Alcohol use Yes Comment: social Objective Physical Exam Constitutional: She is well-developed, well-nourished, and in no distress. HENT: Head: Normocephalic. Right Ear: Tympanic membrane, external ear and ear canal normal. Left Ear: Tympanic membrane, external ear and ear canal normal. Nose: Rhinorrhea present. Right sinus exhibits no maxillary sinus tenderness and no frontal sinus tenderness. Left sinus exhibits no maxillary sinus tenderness and no frontal sinus tenderness. Mouth/Throat: Posterior oropharyngeal erythema (PND) present. Eyes: Conjunctivae are normal. Neck: Normal range of motion. Neck supple. Cardiovascular: Normal rate, regular rhythm and normal heart sounds. Pulmonary/Chest: Effort normal. No respiratory distress. She has no wheezes. She has rhonchi (faint scattered rhonchi, good air exchange). Abdominal: Soft. She exhibits no distension. There is no tenderness. Lymphadenopathy: She has no cervical adenopathy. Skin: Skin is warm and dry. No rash noted. Nursing note and vitals reviewed. ASSESSMENT/PLAN: 1. Acute bronchitis, unspecified organism - ICD9: 466.0, ICD10: J20.9 -Augmentin -Prednisone -Albuterol nebulizer treatments at home PRN -F/u with pcp in 3-5 days or sooner if symptoms are not improving or worsening -Pt has an personnel generalist manager f/u directly after this visit, encouraged pt to notify Of orders, pt. verbalized understanding. Prescription instructions reviewed with patient as applicable. Patient advised if symptoms do not improve or if symptoms worsen sooner, to contact their primary care physician. Potential red flag symptoms discussed with the patient. Reviewed appropriate action plan to take if red flag symptoms occur. Patient agreeable to treatment plan. Leola Garcia APRN.NIGHT AUDITOR Referring Provider: SELF [200] Allergies As of Date: 11/17/2018 Noted Allergy Reaction environmental [Other] 08/28/2008 5 - Intolerance Comments: Sneezing, itchy,watery eyes. flea/ bug bites TRAMADOL 12/04/2017 14 - Other: See Comments Comments: Elevated anxiety level Date Reviewed: 11/17/2018 Reviewed by: Steph Shaw Ma - Fully Assessed Reason for Visit: Chest Congestion [236] Cmt: cough x 1 week Primary Visit Diagnosis:Acute bronchitis, unspecified organism [J20.9] Order(s):predniSONE (DELTASONE) 20 mg tabletTake 2 tablets by mouth once daily for 5 days. Take daily with food.Disp: 10 tabletRfl: 0 albuterol (PROVENTIL) 2.5 mg /3 mL (0.083 %) nebulizer solutionUse 3 mL via nebulizer every 6 hours as needed. 1 vial contains 3 ml.Disp: 100 VialRfl: 0 amoxicillin-clavulanic acid (AUGMENTIN) 875-125 mg per tabletTake 1 tablet by mouth twice daily for 10 days.Disp: 20 tabletRfl: 0 Prescriptions as of 11/17/2018 Sig: ALBUTEROL SULFATE 2.5 MG/3 ML* Use 3 mL via nebulizer every * AMOXICILLIN 875 MG-POTASSIUM * Take 1 tablet by mouth twice * CLONAZEPAM 0.5 MG TABLET Take 0.5 mg by mouth twice da* DEXTROAMPHETAMINE-AMPHETAMINE* Take 10 mg by mouth once flip* DIPHENHYDRAMINE 25 MG CAPSULE Take 1 capsule by mouth at be* Patient not taking: Reported on 11/17/2018 ETONOGESTREL-ETHINYL ESTRADIO* Use 1 Each vaginally as direc* Patient not taking: Reported on 11/17/2018 PREDNISONE 20 MG TABLET Take 2 tablets by mouth once * PSEUDOEPHEDRINE 60 MG TABLET Take 1 tablet by mouth every * Patient not taking: Reported on 11/17/2018 Problem List As Of Date 11/17/2018 Noted Resolved Depression with anxiety [F41.8] INVALID FOR* Anxiety disorder [F41.9] INVALID FOR* PTSD (post-traumatic stress disorder) [F43.10] INVALID FOR* Constipation [K59.00] INVALID FOR* Migraine headache [G43.909] INVALID FOR* Polyarthralgia [M25.50] INVALID FOR* Environmental allergies [Z91.09] INVALID FOR* Overweight [E66.3] INVALID FOR* Prescriptions ordered this encounter Disp Refills Start End PREDNISONE 20 MG TABLET 10 t* 0 11/17/2018 11/22/2018 Route: ORAL Sig: Take 2 tablets by mouth once daily for 5 days. Take daily with food. ALBUTEROL SULFATE 2.5 MG/3 ML (0.083* 100 * 0 11/17/2018 Route: NEBULIZATION Sig: Use 3 mL via nebulizer every 6 hours as needed. 1 vial contains 3 ml. AMOXICILLIN 875 MG-POTASSIUM CLAVULA* 20 t* 0 11/17/2018 11/27/2018 Route: ORAL Sig: Take 1 tablet by mouth twice daily for 10 days. Disposition: Return if symptoms worsen or fail to improve. Follow-up and Disposition History Recorded Encounter Status:Closed by LEOLA GARCIA on 11/17/18 CTA CHEST W/ + W/O Observed: 11/14/2018 Status: F Source: [email or web address] 11:07 PM SYSTEM REPOSITORY Patient Name: MYRNA CARTER CT Exam Date/Time 11/14/2018 22:55:33 EST Exam CTA Chest w/ + w/o Contrast Ordering Physician MD KATHY, ZOILA TAM Accession Number [id number] CPT4 Codes 06276 (), Q9967 (CT ISOVUE 370MG/[id number]) Reason For Exam CHEST PAIN, ACUTE, NONSPECIFIC, LOW PROB CAD Report CTA OF THE CHEST CLINICAL INDICATION: CHEST PAIN, ACUTE, NONSPECIFIC, LOW PROB CAD TECHNIQUE: CTA of the chest with IV contrast. Multiplanar reformations. Coronal MIP images. 3-D reformations were personally generated on a separate workstation. COMPARISON: None FINDINGS: Limited scans through the upper abdomen show no significant abnormality. Small bilateral pleural effusions. Dense breast tissue bilaterally and some nonenlarged but numerous axillary lymph nodes bilaterally may relate to breast-feeding/recent . No pulmonary embolism identified. Thoracic aorta is normal in caliber. No aneurysm or dissection seen. No pathologically enlarged lymph nodes seen. There is some septal thickening at the lung bases, to a lesser extent in the upper lungs left greater than right, suspicious for interstitial edema. No airspace edema seen. IMPRESSION: 1. Suspect mild pulmonary edema. Small pleural effusions. 2. Dense breast tissue and numerous but nonenlarged axillary lymph nodes bilaterally may be related to recent breast-feeding/. 3. No embolism seen. Report Dictated on Final Dictated: 11/14/2018 11:07 pm Dictating Physician: MD JIMENES JOHN R Signed Date and Time: 11/14/2018 11:12 pm Signed by: MD JIMENES JOHN R Transcribed Date and Time: 11/14/2018 11:07 BASIC METABOLIC PANEL Collected: 11/14/2018 Status: F Source: [email or web address] 9:28 PM SYSTEM REPOSITORY TYPE CODE TESTS RESULT OUT OF RANGE REFERENCE UNITS LAB NA3 135-145 mmol/L Normal Sodium 138 Result Comment: NOTE: New Sodium Reference Range effective 2018 @ 10:00 LAB K3 3.5-5.1 mmol/L Normal Potassium 4.0 LAB CL3 98-107 mmol/L High Chloride 108 LAB CO23 22-30 mmol/L Normal Carbon Dioxide 23 LAB ANIN3 NA Anion Gap 7 LAB GLUC3 70-100 mg/dL Normal Glucose 85 LAB BUN3 7-20 mg/dL Normal Urea Nitrogen 10 LAB CRET3 0.52-1.25 mg/dL Normal Creatinine 0.58 LAB GF3BR >60 mL/min eGFR > 60.0 LAB GF3WR >60 mL/min eGFR OTHER > 60.0 Result Comment: Source- MDRD equation with creatinine calibration to IDMS(NKDEP) eGFR not recommended for drug dose adjustment LAB CA3 8.4-10.4 mg/dL Low Calcium 8.2 Performed By: #### HEMDF, BMP3 #### [facility] [address] [address] URINALYSIS,MACRO Collected: 11/14/2018 Status: F Source: [email or web address] 9:28 PM SYSTEM REPOSITORY TYPE CODE TESTS RESULT OUT OF REFERENCE UNITS RANGE LAB APPUR Clear NA Appearance Clear LAB COLUR Lt. Yellow NA Color Yellow LAB USG 1.005-1.030 NA Specific Normal Odon,Urine 1.005 LAB UPH 5.0-8.0 NA pH,Urine Normal 7.0 LAB ULUK Negative NA Leukocytes 1 + LAB UNIT Negative NA Nitrites NEG LAB UPRO Negative mg/dL Total Protein,Urine NEG LAB UGLU Negative mg/dL Glucose,Urine NEG (Normal) LAB UKET Negative mg/dL Ketone,Urine Negative LAB UURO 0-1 mg/dL Urobilinogen Normal (0.2) LAB UBIL Negative NA Bilirubin,Ur Negative LAB UBLD Negative {RBC}/uL Occult Blood,Ur 2+(50) Performed By: #### UAMAC, UAMIC #### [facility] [address] [place] [address] URINALYSIS,MICROSCOPIC Collected: Status: F Source: [facility] 11/14/2018 9:28 PM HEALTH SYSTEM REPOSITORY TYPE CODE TESTS RESULT OUT OF REFERENCE UNITS RANGE LAB WBCU 0-5 /[HPF] 3 WBC,Urine - 5 LAB RBCU 0-2 /[HPF] 0 RBC,Urine - 2 LAB EPIU 3-5 /[HPF] 0 Epithelial Cells - 2 LAB DEANNE Negative NA Bacteria Moderate (6-50) Performed By: #### UAMAC, UAMIC #### [facility] [address] [place] [address] HEMOGRAM W/ AUTODIFF Collected: 11/14/2018 Status: F Source: [facility] 9:27 PM SYSTEM REPOSITORY TYPE CODE TESTS RESULT OUT OF REFERENCE UNITS RANGE LAB IWBC 3.6-10.7 10*3/uL WBC High 13.0 LAB RBC 3.80-5.20 10*6/uL Low RBC 3.63 LAB HGB 11.7-16.0 g/dL Low Hemoglobin 9.4 LAB HCT 35.0-47.0 % Low Hematocrit 28.8 LAB MCV 79.0-98.0 fL MCV Normal 79.3 LAB MCH 26.0-34.0 pg Low MCH 25.8 LAB MCHC 32.0-36.0 % MCHC Normal 32.5 LAB RDW 11.5-14.5 % RDW Normal 13.8 LAB PLT 140-440 10*3/uL Platelet Normal 357 LAB MPV 7.4-10.4 fL Low MPV 7.2 LAB GRAN% 40.0-80.0 % Granulocytes Normal 72.7 LAB LYMP% 20.0-40.0 % Low Lymphocytes 16.3 LAB MONO% 2.0-10.0 % Monocytes Normal 7.0 LAB EOS% 1.0-6.0 % Eosinophils Normal 3.7 LAB BAS% 0.0-2.0 % Basophils Normal 0.3 LAB ANC 1.8-7.0 10*3/uL Abs High Neutrophile Cnt 9.6 LAB ALC 1.0-4.3 10*3/uL Abs Lymph Cnt Normal 2.2 LAB AMC 0.0-0.8 10*3/uL Abs Monocyte High Cnt 0.9 LAB AEC 0.0-0.5 10*3/uL Abs Eosin Cnt Normal 0.5 LAB ABC 0.0-0.2 10*3/uL Abs Baso Cnt Normal 0.0 Performed By: #### HEMDF, BMP3 #### [facility] [address] [place] [address] DISCHARGE SUMMARY Observed: 11/12/2018 Status: F Source: [email or web address] 1:15 AM [facility] Medical Records Department [address] [place] [address] Discharge Summary 11/12/18 0112 MR#: [id number] Acct: [id number] Name: MYRNA CARTER Rep #: [id number] : 1995 23 From: Geo Haley MD PCP: Arianne Ball MD Status: DIS IN Y [id number] Summary Date of Admission: 11/08/18 Date of Discharge: 11/11/18 Summary: Admission diagnosis: Postdate Intrauterine Discharge diagnosis: Postdate Intrauterine And Failure to Progress Procedure: Primary Low Transverse Cervical Section HPI: Uneventful care. PE: Unremarkable. Hospital Course: The patient is a 23 year old G 1 P 0 who presented to L and D at 41 weeks gestation. She subsequently had a primary for failure to progress. She was given 3 doses of Cytotec and we were able to rupture membranes with her cervix dilated 2 cm. Patient subsequently progressed to approximately 4-1/2-5 cm by noon but despite adequate contractions noted with an intrauterine pressure catheter the cervix failed to dilate past 4-5 cm for the next 7-8 hours. Station also remained at -2 to -3 station. Given this it was decided to proceed with primary section for failure to progress. Postoperatively she did well demonstrating a stable HGB on POD 1 and bowel fxn by POD #2 at which time it was felt she was ready for discharge. Homegoing Instruction: She was instructed not to drive for several days or if using narcotic pain medication, not to put anything in the vagina for 4 weeks, not to lift >25 lbs for 6 weeks and to call the office for an appointment in 2 weeks and 6 weeks. Discharge Medications: She was given a prescription for Oxycodone and Colace and also plans to use Aleve or Motrin or Tylenol at home as needed for pain and constipation. - Physical Exam Vital Signs Temp Pulse Resp BP Pulse Ox 98.4 F 89 18 136/81 H 96 11/11/18 19:49 11/11/18 19:49 11/11/18 19:49 11/11/18 19:49 11/11/18 02:22 Oxygen Delivery Method Room Air Weight: 241 lb 6 oz Body Mass Index (BMI) 38.9 Intake and Output for Last 24 Hours Intake Total 1627 / 1627 Output Total 2650 / 2650 Balance -1023 / -1023 11/12/18 0115 <Electronically signed by Geo Haley MD> Date Geo Haley MD Cosigner Signature (if applicable): Date CC: Arianne Ball MD; Geo Haley MD Signed CBC-COMPLETE BLOOD CNT Collected: 11/10/2018 Status: F Source: [place] NO DIFF 6:25 AM [facility] Order Comment: Comments: Day #1 Reason for Laboratory Test TYPE CODE TESTS RESULT OUT OF RANGE REFERENCE UNITS LAB L100.1000 4.4-11.0 K/mm3 High WBC 17.8 LAB L100.1200 4.2-5.4 M/mm3 Low RBC 3.51 LAB L100.1300 12.0-15.0 g/dl Low HGB 9.3 LAB L100.1400 37-47 % Low HCT 28.4 LAB L100.1500 81-99 fL Low MCV 80.9 LAB L100.1600 27.0-32.0 pg Low MCH 26.5 LAB L100.1700 32-36 g/gl Normal MCHC 32.7 LAB L100.1810 11.6-14.6 % Normal RDW CV 14.5 LAB L100.1820 35.1-43.9 fl Normal RDW SD 41.1 LAB L100.1900 150-450 K/mm3 Normal PLT 254 LAB L100.2000 6.2-12.0 fl Normal MPV 8.8 Performed By: #### L100.0500 #### [facility] [address] [place], [address] DISCHARGE INSTRUCTION Observed: 11/09/2018 Status: F Source: [place] 8:41 PM [facility] Medical Records Department [address] [place] [address] Instructions for Home/Discharge Instructions 11/09/182040 MR#: [id number] Acct: [id number] Name: MYRNA CARTER Rep #: [id number] : 1995 23 From: Geo Haley MD PCP: Arianne Ball MD Status: ADM IN Discharge Diet: No Restrictions Discharge Activity: May not drive while taking narcotic pain medications., May Shower, May Take a Tub Bath May resume sexual activity in: 4-6 weeks Lifting Restrictions: 20 pounds Additional Activity Instructions:: Nothing in the vagina for 4-6 weeks. You may return to work/school in 6 weeks. Call your doctor if your incision/area has: Continuous Slow Oozing, Sudden Increased Bleeding, Increased Pain/ Swelling, Increased Redness, Foul Smelling Discharge Call your doctor if you observe: Fever of 101 or Higher, Inability to urinate, Inability to have a bowel movement, Using more than one pad per hour Additional Instructions: If you experience any of the following, contact your healthcare provider. * Bleeding that soaks a pad every hour for 2 hours * Unrelieved incision or abdominal pain * Swelling, redness, discharge or bleeding from your incision or episiotomy site * Your incision begins to separate * Problems urinating (including inability to urinate or burning while urinating). * Visual changes * Severe headache * Flu-like symptoms * Pain or redness in one of both of your breasts * Pain, warmth, tenderness or swelling in your legs, especially the calf area * Frequent nausea and vomiting * Symptoms of depression or anxiety If you experience any of the following, call 911 or go to the nearest Emergency Room. * Chest pain * Problems breathing * Seizure activity * Partial or complete paralysis of a body part, slurred speech, weakness or drooping of the face, or a sudden inability to walk or hold your balance Allergies/Adverse Reactions: Allergies tramadol Adverse Reaction (Verified 10/13/18 22:17) Other anxiety Medications to take at Discharge Vits [Prenatabs FA] 1 tablet PO DAILY 10/13/18 Docusate Sodium [Colace] 100 mg PO BID PRN PRN #60 cap 11/09/18 Oxycodone [Oxyir] 5 mg PO Q6H PRN PRN 7 Days #20 tab 11/09/18 The following prescriptions were given: Oxycodone [Oxyir] 5 mg PO Q6H PRN PRN 7 Days #20 tab PRN Reason: Severe Pain (-09/01) Docusate Sodium [Colace] 100 mg PO BID PRN PRN #60 cap PRN Reason: Constipation Follow-Up: Call to make an appointment with your doctor for an incision check in 1-2 weeks. You will also need a 6 week post- follow up appointment. Test results from this visit will be discussed in further detail at your follow-up appointment, if applicable. Please Follow Up With: Geo Haley MD - [phone] When: Call to make an appointment for an incision check in 2 weeks. Primary Care Physician: Arianne Ball MD [Primary Care Provider] - 11/09/182040 <Electronically signed by Geo Haley MD> Date Geo Haley MD CC: Arianne Ball MD OPERATIVE REPORT Observed: 11/09/2018 Status: F Source: [place] 8:40 PM [facility] Medical Records Department [address] [place] [address] Operative Report 11/09/182027 MR#: [id number] Acct: [id number] Name: MYRNA CARTER Rep #: [id number] : 1995 23 From: Geo Haley MD PCP: Arianne Ball MD Status: ADM IN Y Location: AM447-2 Report of Operation Date of Procedure: 11/09/18 Pre-Operative Diagnosis: Postdate Intrauterine , Failure to Progress Post-Operative Diagnosis: Postdate Intrauterine , Failure to Progress Surgery/Procedure Performed:: Primary Low Transverse Cervical Section Description of Surgical Findings:: Viable female infant with Apgars of 8/9 and an occiput anterior presentation with meconium stained fluid and three-vessel umbilical cord. Head not well applied in the pelvis. pet care attendant: Maira Oliveros Type of Anesthesia:: Epidural/Supplement - Duramorph Anesthesiologist: Sofi Alcantara Specimen's removed: [facility] to [facility] Drains: Braden to straight drain Estimated Blood Loss (mL): 500 cc Fluids Replaced: Crystalloid Description of Procedure: Surgeon: Geo Haley MD, FACOG Indication: This is a 23-year-old who presented last evening for postdates induction with Cytotec. She was given 3 doses of Cytotec and we were able to rupture membranes this morning with her cervix dilated 2 cm. Patient subsequently progressed to approximately 4-1/2-5 cm by noon but despite adequate contractions noted with an intrauterine pressure catheter the cervix failed to dilate past 4-5 cm for the next 7-8 hours. Station also remained at -2 to -3 station. Given this it was decided to proceed with primary section for failure to progress. care has otherwise been uneventful. The patient has been counseled regarding the risk and indications of this procedure including the possibility of bleeding infection and injury to surrounding structures such as bowel bladder. All questions were answered. Procedure: Patient was taken to the operating room where after spinal anesthesia was placed, the patient was prepped and draped in usual sterile fashion and a Braden catheter was placed. The abdomen was entered through a Pfannenstiel incision and peritoneum was entered bluntly. After developing a bladder flap on the lower uterine segment a low transverse incision was made on the uterus and head was easily delivered onto the operative field the nose mouth and oropharynx were bulb suctioned. Subsequently a viable female infant was born with Apgars of 8/9. The was noted to cry move all extremities vigorously on the operative field. The umbilical cord was doubly clamped and ligated and infant handed to the nursery personnel who were present for the delivery. Placenta was delivered and noted to be 3 vessels and normal. Uterus was exteriorized and remaining placental tissue was removed. The uterus was then closed in 2 layers first with running locked 0 Vicryl suture followed by a second imbricating layer with 0 Vicryl suture. 0 Vicryl suture was then used in a horizontal mattress interrupted fashion to affect final hemostasis of the uterine incision line. Normal fallopian tubes and ovaries were visualized and the uterus was returned to the pelvis. Hemostasis was noted and rectus abdominis muscles were reapproximated in the midline with interrupted Number 0 Vicryl suture in a horizontal mattress fashion. Fascia was closed with running Number 1 PDS Strata fix suture. Subcutaneous tissue was irrigated with copious amounts of saline solution and then closed with running 3-0 Vicryl suture. Skin was closed with 4-0 monocryl suture in a running subcuticular fashion. Steri strips, telfa, and tape were placed across the incision. The patient tolerated the procedure well and was taken to the recovery room in satisfactory condition. Sponge, needle, and instrument counts were all reportedly correct. EBL was less than 500 cc. Ancef 2 gms IV was given prior to the procedure. Specimen to Pathology: None Grafts/Implants Used: None - Complications None - Admit VTE Documentation VTE Present on Admission: Yes VTE Mechan Device Prophylaxis: SCD's VTE Pharm Prophylaxis ordered?: No Reason prophylaxis not ordered:: Treatment Not Indicated 11/09/182039 <Electronically signed by Geo Haley MD> Date Geo Haley MD CC: Arianne Ball MD; Geo Haley MD Signed CBC-COMPLETE BLOOD CNT Collected: 11/08/2018 Status: F Source: [place] NO DIFF 8:20 PM [facility] TYPE CODE TESTS RESULT OUT OF RANGE REFERENCE UNITS LAB L100.1000 4.4-11.0 K/mm3 High WBC 17.7 LAB L100.1200 4.2-5.4 M/mm3 Normal RBC 4.38 LAB L100.1300 12.0-15.0 g/dl Low HGB 11.4 LAB L100.1400 37-47 % Low HCT 34.8 LAB L100.1500 81-99 fL Low MCV 79.5 LAB L100.1600 27.0-32.0 pg Low MCH 26.0 LAB L100.1700 32-36 g/gl Normal MCHC 32.8 LAB L100.1810 11.6-14.6 % Normal RDW CV 14.4 LAB L100.1820 35.1-43.9 fl Normal RDW SD 41.1 LAB L100.1900 150-450 K/mm3 Normal PLT 339 LAB L100.2000 6.2-12.0 fl Normal MPV 8.4 Performed By: #### L100.0500 #### [facility] [address] [place], [address] TYPE AND SCREEN Collected: 11/08/2018 Status: F Source: [place] 8:20 PM [facility] Order Comment: Reason for Type AND Screen/Red Cells: ROUTINE TYPE CODE TESTS RESULT OUT OF RANGE REFERENCE UNITS LAB B10.0800 AB Normal BLOOD TYPE GEL POSITIVE LAB B100.4000 Normal Antibody NEGATIVE Screen Performed By: #### B101.7450 #### [facility] [address] [facility] [place], [address] URINALYSIS, COMPLETE Collected: 10/13/2018 Status: F Source: [place] 9:16 PM [facility] Order Comment: How was Urine Obtained? CLEAN CATCH TYPE CODE TESTS RESULT OUT OF RANGE REFERENCE UNITS LAB L400.3000 Yellow COLOR Normal STRAW LAB L400.3050 Clear Normal CLARITY Clear LAB L400.3200 Normal mg/dl Normal GLUCOSE, UR NEGATIVE LAB L400.3300 Negative mg/dL Normal BILIRUBIN URINE Negative LAB L400.3400 Negative mg/dl Normal KETONE UR Negative LAB L400.3465 1.002-1.030 Normal SP.GR. DIPSTX 1.010 LAB L400.3550 5.0 - 8.0 pH UR Normal 7.0 LAB L400.3600 Negative mg/dl PROT Normal DIPSTX Negative LAB L400.3700 Normal mg/dl Normal UROBILI Normal LAB L400.3750 Negative Normal NITRITE UR Negative LAB L400.3780 Negative /ul Normal OCCULT BLOOD-UR Negative LAB L400.3800 Negative /ul High LEUK ESTERASE 100 LAB L400.4050 0-5 /hpf WBC Normal 0-5 SEEN LAB L400.4100 0-5 /hpf 0 Normal RBC-UA SEEN LAB L400.4150 5-10 /hpf SQUAM Normal EPI 0-5 SEEN LAB L400.4300 None Seen /hpf Normal BACTERIA RARE LAB L400.4350 <or=2+ /hpf 0 Normal MUCUS, URINE SEEN Performed By: #### L400.0001, L205.1000 #### [facility] [address] [place], [address] (ROM) RUPTURE OF Collected: 10/13/2018 Status: F Source: [place] 9:16 PM [facility] TYPE CODE TESTS RESULT OUT OF RANGE REFERENCE UNITS LAB L205.1310 Negative Normal ROM Negative Result Comment: Amniotic fluid not present indicates No Rupture of Membranes at time of specimen collection. Performed By: #### L400.0001, L205.1000 #### [facility] [address] [facility] [place], [address] Observed: 10/06/2018 Status: F Source: [place] CULTURE, GROUP B 11:30 AM [facility] REPOSITORY Comments: VAGINAL/RECTAL KELLY Culture Group B Beta Streptococcus is not isolated. Performed By: #### M100.1800 #### [facility] [address] [facility] [place], [place], [address] PROGRESS Observed: 09/09/2018 Status: COMPLETED Source: [place] 10:[address] [facility] REPOSITORY HNO ID: [id number] Author: Rajiv Oliver Service: (none) Author Type: Physician Type: Progress Notes Filed: 09/09/2018 10:53 AM Note Text: Meet the medical records administrator visit. No significant medical information discussed. No charge. Rajiv Oliver M.D. CNOV Observed: 09/09/2018 Status: COMPLETED Source: [place] 9:[address] [facility] REPOSITORY Office Visit (PEDSWS) CAROL ANNMYRNA HUNT ([id number]) 1995 F Date Time Provider Department 09/09/18 9:15 AM RAJIV OLIVER During your visit today, we recorded the following information about you: Rajiv Oliver MD 09/09/2018 10:53 AM Signed Meet the medical records administrator visit. No significant medical information discussed. No charge. Rajiv Oliver M.D. Referring Provider: SELF [200] Allergies As of Date: 09/09/2018 Noted Allergy Reaction environmental [Other] 08/28/2008 5 - Intolerance Comments: Sneezing, itchy,watery eyes. flea/ bug bites TRAMADOL 12/04/2017 14 - Other: See Comments Comments: Elevated anxiety level Date Reviewed: 09/09/2018 Reviewed by: Rajiv Oliver - Fully Assessed Primary Visit Diagnosis:MEET WITH PHYSICIAN Prescriptions as of 09/09/2018 Sig: ETONOGESTREL-ETHINYL ESTRADIO* Use 1 Each vaginally as direc* DIPHENHYDRAMINE 25 MG CAPSULE Take 1 capsule by mouth at be* PSEUDOEPHEDRINE 60 MG TABLET Take 1 tablet by mouth every * DEXTROAMPHETAMINE-AMPHETAMINE* Take 10 mg by mouth once flip* CLONAZEPAM 0.5 MG TABLET Take 0.5 mg by mouth twice da* Problem List As Of Date 09/09/2018 Noted Resolved Depression with anxiety [F41.8] INVALID FOR* Anxiety disorder [F41.9] INVALID FOR* PTSD (post-traumatic stress disorder) [F43.10] INVALID FOR* Constipation [K59.00] INVALID FOR* Migraine headache [G43.909] INVALID FOR* Polyarthralgia [M25.50] INVALID FOR* Environmental allergies [Z91.09] INVALID FOR* Overweight [E66.3] INVALID FOR* Encounter Status:Closed by RAJIV OLIVER MD on 09/09/18 CBC-COMPLETE BLOOD CNT Collected: 08/09/2018 Status: F Source: [place] NO DIFF 1:40 PM [facility] TYPE CODE TESTS RESULT OUT OF RANGE REFERENCE UNITS LAB L100.1000 4.4-11.0 K/mm3 High WBC 20.6 LAB L100.1200 4.2-5.4 M/mm3 Low RBC 3.96 LAB L100.1300 12.0-15.0 g/dl Low HGB 11.4 LAB L100.1400 37-47 % Low HCT 33.9 LAB L100.1500 81-99 fL Normal MCV 85.6 LAB L100.1600 27.0-32.0 pg Normal MCH 28.8 LAB L100.1700 32-36 g/gl Normal MCHC 33.6 LAB L100.1810 11.6-14.6 % Normal RDW CV 12.8 LAB L100.1820 35.1-43.9 fl Normal RDW SD 40.2 LAB L100.1900 150-450 K/mm3 Normal PLT 294 LAB L100.2000 6.2-12.0 fl Normal MPV 8.1 Performed By: #### L100.0500 #### [facility] [address] [place], [address] GLUCOSE CHALLENGE GEST Collected: 08/09/2018 Status: F Source: [place] 1H 50G 1:40 PM [facility] TYPE CODE TESTS RESULT OUT OF RANGE REFERENCE UNITS LAB L501.0250 70-140 mg/dL Normal GLU GEST 103 50g 1H Performed By: #### L501.0250 #### [facility] [address] [place], [address] CTPCR Collected: 04/25/2018 Status: F Source: [facility] 9:58 PM [facility] [place] REPOSITORY TYPE CODE TESTS RESULT OUT OF REFERENCE UNITS RANGE LAB SCCTPCR(CARIDAD NC) Chlam Genital Female Source LAB CTPCR1(LOIN Negative C) Negative C.trachomati s PCR Result Comment: Transport tube received with two swabs. Review collection procedure. Inappropriate collection may cause aberrant results. Molecular (PCR) assay performed on the Alejandra Ebenezer 4800 system. LAB CTINT(LOINC) See CT Interp N C. trachomatis Interp Result Comment: C. trachomatis DNA not detected. Specimen is presumptive negative for C. trachomatis. A negative result does not preclude C. trachomatis infection because results depend on adequate specimen collection, absence of inhibitors, and sufficient DNA to be detected. See CT Interp N Performed By: #### CTPCR, NGPCR1 #### [place] [id number] NGPCR Collected: 04/25/2018 Status: F Source: [facility] 9:58 PM [facility] [place] REPOSITORY TYPE CODE TESTS RESULT OUT OF REFERENCE UNITS RANGE LAB GCSRC(LOIN C) GC PCR Source Genital Female LAB NGPCR(LOIN Negative C) N. gonorrhoeae (PCR) Negative Result Comment: Transport tube received with two swabs. Review collection procedure. Inappropriate collection may cause aberrant results. Molecular (PCR) assay performed on the Alejandra Ebenezer 4800 System. LAB NGINT(LOINC) See NG Interp N N. gonorrhoeae Interp Result Comment: N. gonorrhoeae DNA not detected. Specimen is presumptive negative for N. gonorrhoeae. A negative result does not preclude Neisseria gonorrhoeae infection because results depend on adequate specimen collection, absence of inhibitors, and sufficient DNA to be detected. See NG Interp N Performed By: #### CTPCR, NGPCR1 #### [place] [address] Observed: 04/25/2018 Status: F Source: [facility] VAGDNA 9:58 PM [facility] [place] REPOSITORY . MICRO - Microbiology PROCEDURE: Affirm Pathogens DNA Direct Probe [*1] SOURCE: Vaginal Fluid BODY SITE: Vagina COLLECTED DATE/TIME: 04/25/2018 21:58 EDT RECEIVED DATE/TIME: 04/26/2018 14:16 EDT START DATE/TIME: 04/26/2018 14:17 EDT FREE TEXT SOURCE: FINAL REPORTS Final Report [] Verified Date/Time/Personnel: 04/27/2018 09:58 EDT Whit species DNA Probe Negative Gardnerella vaginalis DNA Probe Positive Trichomonas vaginalis DNA Probe Negative Performing Locations *1: This test was performed at: [facility], [address] [place] [address], [address] [place] [address] Performed By: #### AFFIRM #### [place] [address] Observed: 04/25/2018 Status: F Source: [facility] 9:58 PM [facility] [place] REPOSITORY . MICRO - Microbiology PROCEDURE: Culture Herpes Virus [*1] SOURCE: Genital, Female BODY SITE: Vagina COLLECTED DATE/TIME: 04/25/2018 21:58 EDT RECEIVED DATE/TIME: 04/26/2018 14:16 EDT START DATE/TIME: 04/26/2018 14:17 EDT FREE TEXT SOURCE: FINAL REPORTS Final Report [] Verified Date/Time/Personnel: 04/30/2018 10:42 EDT Herpes Simplex Virus Type 2 Virus DETECTED in tissue culture. Comment: Significant clinical differences between HSV 1 and 2 in recurrence frequency, risk in , and sequela are well documented. PRELIMINARY REPORTS Preliminary Report [] Verified Date/Time/Personnel: 04/29/2018 08:13 EDT No Herpes virus detected to date. Negative cultures are held for at least 6 days. Performing Locations *1: This test was performed at: [facility], [address] [place] [address], [facility] , [facility] Performed By: #### ROSA #### [place] [address] CNCO Observed: 04/08/2018 Status: COMPLETED Source: [place] 12:00 AM [facility] REPOSITORY Letter Text Myrna Carter [address] [facility] [address] 04/08/2018 [facility] #: [id number] Dear , Due to a change in the provider's schedule it has been necessary to reschedule your Appointment. Your original appointment was scheduled for 06/16/2018 at 08:40 AM with Samm Daley M.D. Your new appointment is now scheduled on 07/21/18 at 08:40 AM with Samm Daley M.D. If this new appointment is not convenient for you, please contact our office at [phone]. Thank you for choosing the [facility] as your Healthcare Provider . Sincerely, Internal Medicine Appointment Office Observed: 03/30/2018 Status: F Source: [facility] 10:43 AM [facility]OUND[facility] REPOSITORY . MICRO - Microbiology PROCEDURE: Beta Strep Antigen with Cult if Ind [*1] SOURCE: Throat BODY SITE: COLLECTED DATE/TIME: 03/30/2018 10:43 EDT RECEIVED DATE/TIME: 03/30/2018 10:47 EDT START DATE/TIME: 03/30/2018 10:47 EDT FREE TEXT SOURCE: FINAL REPORTS Final Report [] Verified Date/Time/Personnel: 03/30/2018 11:24 EDT Antigen Screen: Negative for Group A Strep. Culture confirmation to follow. COMMENT: Recommendations suggest that all negative results be confirmed with culture. Performing Locations *1: This test was performed at: [place] [address] [place], [place], [address] Performed By: #### BSA #### [address] [address] Observed: 03/30/2018 Status: F [facility] REPOS[facility] . MICRO - Microbiology PROCEDURE: Culture Beta Strep Only [O1 *1] SOURCE: Throat BODY SITE: COLLECTED DATE/TIME: 03/30/2018 10:41 EDT RECEIVED DATE/TIME: 03/30/2018 11:24 EDT START DATE/TIME: 03/30/2018 11:24 EDT FREE TEXT SOURCE: FINAL REPORTS Final Report [] Verified Date/Time/Personnel: 04/01/2018 07:05 EDT No Beta Strep isolated at 48hrs. PRELIMINARY REPORTS Preliminary Report [] Verified Date/Time/Personnel: 03/31/2018 07:39 EDT No beta Strep isolated at 24 hours. Order Comments O1: Culture Beta Strep Only Order added by [email or web address] Performing Locations *1: This test was performed at: [address], [id number] [place] [address] Performed By: #### BSO #### [place] [address] URINE DRUG SCREEN Collected: 03/17/2018 Status: F Source: [place] (VISTA) 4:17 PM [facility] REPOSITORY Order Comment: List of Drugs Taken or Suspected? UNK TYPE CODE TESTS RESULT OUT OF RANGE REFERENCE UNITS LAB L505.0075 TO BE Normal CONFIRMED Result Comment: CONFIRMATORY TESTING FOR ALL POSITIVE URINE DRUG SCREEN RESULTS WILL ONLY BE SENT OUT UPON PHYSICIAN ORDER. VISTA Urine Drug Screen methods provide only preliminary analytical test results. A more specific alternate chemical method must be used in order to obtain a confirmed analytical result. Gas chromatography/mass spectrometery (GC/MS) is the preferred confirmatory method. Clinical consideration and professional judgement should be applied to any drug of abuse test result, particularly when preliminary positive results are used. URINE TCA TESTING MUST BE ORDERED SEPARATELY. USE TEST MNEMONIC: [facility] LAB L505.5005 VISTA UDS PH 6 Normal LAB L505.5015 <1000 ng/mL AMPHETAMINES Normal NEGATIVE LAB L505.5025 < 200 ng/mL BARBITIURATES Normal NEGATIVE LAB L505.5035 < 200 ng/mL BENZODIAZIPINE Normal NEGATIVE LAB L505.5045 < 300 ng/mL COCAINE Normal NEGATIVE LAB L505.5055 < 500 ng/mL ECSTACY Normal NEGATIVE LAB L505.5065 < 300 ng/mL METHADONE Normal NEGATIVE LAB L505.5075 < 300 ng/mL OPIATES Normal NEGATIVE LAB L505.5085 < 25 ng/mL PCP Normal NEGATIVE LAB L505.5095 < 50 ng/mL THC Normal NEGATIVE Performed By: #### L505.5000, L505.6240 #### [facility] [address] [place], [place], [address] NICOTINE URINE DRUG Collected: 03/17/2018 Status: F Source: [place] S[place] 4:17 PM [facility] Order Comment: List of Drugs Taken or Suspected? UNK TYPE CODE TESTS RESULT OUT OF RANGE REFERENCE UNITS LAB L505.6250 TO BE Normal CONFIRMED Result Comment: CONFIRMATORY TESTING FOR ALL POSITIVE URINE DRUG SCREEN RESULTS WILL ONLY BE SENT OUT UPON PHYSICIAN ORDER. The results of Urine Drug Screen methods provide only preliminary analytical test results. A more specific alternate chemical method must be used in order to obtain a confirmed analytical result. Gas chromatography/mass spectrometery (GC/MS) is the preferred confirmatory method. Clinical consideration and professional judgement should be applied to any drug of abuse test result, particularly when preliminary positive results are used. LAB L505.6270 <200 ng/mL High COT DRG Positive SCREEN Result Comment: Cotinine is the first-stage metabolite of Nicotine. Performed By: #### L505.5000, L505.6240 #### [facility] [address] [place], [place], [address] CBC W/DIFF, AUTOMATED Collected: 03/17/2018 Status: F Source: [place] 4:17 PM [facility] TYPE CODE TESTS RESULT OUT OF RANGE REFERENCE UNITS LAB L100.1000 4.4-11.0 K/mm3 High WBC 14.8 LAB L100.1200 4.2-5.4 M/mm3 Normal RBC 4.92 LAB L100.1300 12.0-15.0 g/dl Normal HGB 14.1 LAB L100.1400 37-47 % Normal HCT 42.5 LAB L100.1500 81-99 fL Normal MCV 86.4 LAB L100.1600 27.0-32.0 pg Normal MCH 28.7 LAB L100.1700 32-36 g/gl Normal MCHC 33.2 LAB L100.1810 11.6-14.6 % Normal RDW CV 13.0 LAB L100.1820 35.1-43.9 fl Normal RDW SD 41.3 LAB L100.1900 150-450 K/mm3 Normal PLT 243 LAB L100.2000 6.2-12.0 fl Normal MPV 9.1 LAB L100.2100 47-70 % Normal NEUT% 67.9 LAB L100.2200 19-41 % Normal LY% 21.3 LAB L100.2300 0-10 % Normal MONO% 8.5 LAB L100.2400 0-5 % Normal EO% 1.8 LAB L100.2500 0-1 % Normal BASO% 0.3 LAB L100.2550 0.0-0.9 % Normal IM GRAN % 0.200 Result Comment: IG% - Immature Granulocytes (promyelocytes, myelocytes and metamyelocytes) > 1% indicates that a LEFT SHIFT is Present. LAB L100.2620 2.0-7.7 X10 3/uL High Absolute Neut 10.0 LAB L100.2720 0.83-4.51 X10 3/ul Normal Absolute Lymph 3.15 Performed By: #### L100.0100 #### [facility] [address] [place], [address] URINALYSIS, ROUTINE Collected: 03/17/2018 Status: F Source: JOSE (DIPSTICK) 4:17 PM [facility] Order Comment: How was Urine Obtained? Urine, Random TYPE CODE TESTS RESULT OUT OF RANGE REFERENCE UNITS LAB L400.3000 Yellow COLOR Normal Yellow LAB L400.3050 Clear Normal CLARITY Clear LAB L400.3200 Normal mg/dl Normal GLUCOSE, UR Normal LAB L400.3300 Negative mg/dL Normal BILIRUBIN URINE Negative LAB L400.3400 Negative mg/dl Normal KETONE UR Negative LAB L400.3465 1.002-1.030 Normal SP.GR. DIPSTX 1.010 LAB L400.3550 5.0 - 8.0 pH UR Normal 7.0 LAB L400.3600 Negative mg/dl PROT Normal DIPSTX Negative LAB L400.3700 Normal mg/dl Normal UROBILI Normal LAB L400.3750 Negative Normal NITRITE UR Negative LAB L400.3780 Negative /ul Normal OCCULT BLOOD-UR Negative LAB L400.3800 Negative /ul LEUK Normal ESTERASE Negative Performed By: #### L400.2010 #### [facility] [address] [place], [place], [id number] THYROID STIM HORMONE Collected: 03/17/2018 Status: F Source: TEABERRY (TSH) 4:17 PM [facility] TYPE CODE TESTS RESULT OUT OF RANGE REFERENCE UNITS LAB L501.9520 0.358-3.74 uIU/mL Normal TSH 1.54 Performed By: #### L501.9520 #### [facility] [id number] RUBELLA IGG Collected: 03/17/2018 Status: F Source: TEABERRY 4:17 PM [facility] TYPE CODE TESTS RESULT OUT OF RANGE REFERENCE UNITS LAB L509.4000 IU/mL Normal Rubella IgG 97.5 Result Comment: Antibody results Interpretation of Immune Status < 5 IU/ml Presumed Non-immune 5 - < 10 IU/ml Equivocal > or = 10 IU/ml Presumed Immune Performed By: #### L509.4000, L3890.6005 #### [facility] [place], [place], [address] HIV - W[facility] Collected: 03/17/2018 Status: F Source: TEAB[place]Y 4:17 PM [facility] TYPE CODE TESTS RESULT OUT OF RANGE REFERENCE UNITS LAB L3890.6005 Nonreactive Normal HIV - [facility] Non-Reactive Performed By: #### L509.4000, L3890.6005 #### [facility] [address] [place], [address] T AND S-NO Collected: 03/17/2018 Status: F Source: JOSE CHARGE W/PNP 4:17 PM [facility] Order Comment: Reason for Type AND Screen/Red Cells: Surgery? N TYPE CODE TESTS RESULT OUT OF RANGE REFERENCE UNITS LAB B10.0800 AB Normal BLOOD POSITIVE TYPE GEL LAB B100.4050 Normal Ab SCREEN NEGATIVE GEL Performed By: #### B100.7550 #### [facility] [address] [place], [place], [address] RPR Collected: 03/17/2018 Status: F Source: TEABERRY 4:17 PM [facility] TYPE CODE TESTS RESULT OUT OF REFERENCE UNITS RANGE LAB L700.5100 NONREACTIVE Normal RPR NONREACTIVE Performed By: #### L700.5100 #### [facility] [address] [place], [address] HEPATITIS B SURFACE Collected: 03/17/2018 Status: F Source: JOSE AG 4:17 PM [facility] TYPE CODE TESTS RESULT OUT OF RANGE REFERENCE UNITS LAB L3100.0400 Negative Normal HB Negative SURF AG Result Comment: Performed at: - [facility] [address] [id number] Sign Language Teacher: Gwyn Colon PhD, Phone: [phone] Performed By: #### L3100.0390, L3100.0625 #### [facility] (refer to report for specific site) refer to report for address and phone number HEPATITIS C ANTIBODIES Collected: 03/17/2018 Status: F Source: TEAB[place]Y 4:17 PM [facility] TYPE CODE TESTS RESULT OUT OF RANGE REFERENCE UNITS LAB L3100.0650 0.0-0.9 s/co ratio Normal HEP C AB <0.1 Result Comment: Negative: < 0.8 Indeterminate: 0.8 - 0.9 Positive: > 0.9 The CDC recommends that a positive HCV antibody result be followed up with a HCV Nucleic Acid Amplification test (011937). Performed By: #### L3100.0390, L3100.0625 #### [facility] (refer to report for specific site) refer to report for address and phone number CT/NG [facility] BY PCR Collected: 03/04/2018 Status: F Source: TEABERRY 10:00 AM [facility] TYPE CODE TESTS RESULT OUT OF RANGE REFERENCE UNITS LAB L8200.2100 Negative Normal Chlam Negative Trac PCR LAB L8200.2200 Negative Normal NG by Negative PCR Performed By: #### L8200.1999 #### [facility] [address] [place], [address] PROGRESS Observed: 02/04/2018 Status: COMPLETED Source: [place] 4:[address] [facility] HNO ID: [id number] Author: Tiffanie Martinez Service: (none) Author Type: (none) Type: Progress Notes Filed: 02/04/2018 4:42 PM Note Text: Pap logged and normal pap letter mailed to patient. Tiffanie Conner Psr GC/CHLAMYDIA AMPLIF Collected: 2018 Status: F Source: [place] 8:[address] [facility] TYPE CODE TESTS RESULT OUT OF RANGE REFERENCE UNITS LAB GCCTSR GC/Chlam Amp Source [facility] LAB GCAMPL GC Amplification Negative for Neisseria gonorrhoeae by amplification. LAB CLAMPL Chlamydia Abnormal Amplif Positive for Alert Chlamydia trachomatis by amplification. Result Comment: In low prevalence populations, the likelihood of a false positive may be higher than a true positive. Retesting by another method may be appropriate for patients who lack risk factors or clinical signs and symptoms consistent with infection. Performed By: #### GCCT #### [facility] [address] [place], [place] [address] CYTOLOGY Observed: 2018 Status: F Source: [place] 8:[address] [facility] Specimen originated from [facility] Specimen #: [id number] Submitting Physician: HELENA FRYE SPECIMEN SUBMITTED A: CERVICAL, SCREENING, FLUID FINAL DIAGNOSIS A. CERVICAL, SCREENING, FLUID Satisfactory for interpretation. Negative for intraepithelial lesion or malignancy. 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 Acute inflammation. This specimen has been analyzed by the ThinPrep Imaging System, an automated imaging and review system, which assists the laboratory in evaluating cells on ThinPrep Pap tests. Following automated imaging, selected mccloud from every slide are reviewed by a tie tamper. SHELBY Long(ASCP) (Electronic Signature) CLINICAL DATA ROUTINE EXAM, HPV Testing: Yes, Reflex HPV for ASCUS Date of Last Menstrual Period: 01/20/2018 STAINS A: CERVICAL, SCREENING, FLUID THIN PREP CORNCOB PIPE SUPERVISOR Chetna Newsome M.D., Recovery Advocate Date of Report: 02/04/2018 Date of Procedure: 2018 Date of Receipt: 01/27/2018 Submitted by: HELENA FRYE Location: [facility] Diagnostic interpretation performed at [facility], [address] [place] [address]. The Pap Smear is a screening test for cervical cancer. False negative results occur with all screening tests, emphasizing the need for rescreening at recommended intervals, and clinical correlation. PROGRESS Observed: 2018 Status: COMPLETED Source: [place] 8:11 AM [facility] HNO ID: [id number] Author: Helena Frye Service: (none) Author Type: Nurse Practitioner Type: Progress Notes Filed: 2018 8:56 AM Note Text: Myrna Carter is a 23 year old who presents for her annual gynecologic exam without complaints. 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 Menses: cycles every 25-30 days and 5 days of flow. Contraception: Nuva Ring HPV vaccine: Yes Last Pap: never Last mammogram: never Sexually active: Yes Patient concerns for STD exposure: No. Obstetric History T0 L0 SAB0 TAB0 Ectopic0 Multiple0 Live Births0 PAST MEDICAL HISTORY Diagnosis Date - Anxiety disorder 02/04/2013 (02/25/16): followed by psychiatry - Arthritis (02/25/16): previously seen by ortho - Constipation 02/04/2013 - Environmental allergies (02/25/16): seeing ENT - Environmental allergies 02/25/2016 - Hydradenitis 2011 Per dermatology - Migraine headache 08/09/2014 - Overweight 02/25/2016 - PMH - PAST MEDICAL HISTORY OF 01/29/2005 color vision - Polyarthralgia 02/25/2016 - PTSD (post-traumatic stress disorder) 02/04/2013 (02/25/16): followed by psychiatry - Severe depression (HCC) (02/25/16): followed by psychiatry PAST SURGICAL HISTORY Procedure Laterality Date - EXTRACTION ERUPTED TOOTH/EXR 03/28/15 all 4 wisdom teeth FAMILY HISTORY Problem Relation Age of Onset - Asthma Mother - Asthma Maternal Grandmother - Cancer Maternal Grandmother Uterine - GI Maternal Grandmother reflux - Colon Cancer Maternal Grandfather - spinal stenosis [Other] [OTHER] Maternal Grandmother - sciatic nerve issues [Other] [OTHER] Mother - carpal tunnel [Other] [OTHER] Mother - Spinal Stenosis [Other] [OTHER] Maternal Aunt - Spinal Stenosis [Other] [OTHER] Maternal Uncle - depression [Other] [OTHER] maternal side - Breast Cancer Maternal Grandmother This was great grandmother - Constipation [Other] [OTHER] Father As a younger child - Diabetes Maternal Uncle - Lipids Maternal Uncle - hereditary angioedema [Other] [OTHER] Maternal Aunt - Thyroid Mother SOCIAL HISTORY Social History Substance Use Topics - Smoking status: Current Every Day Smoker Packs/day: 0.25 Types: Cigarettes - Smokeless tobacco: Never Used - Alcohol use No REVIEW OF SYSTEMS Abdomen: No abdominal pain, nausea, vomiting, diarrhea, or constipation. No bloating, early satiety, indigestion, or increased flatulence. Bladder: No dysuria, gross hematuria, urinary frequency, urinary urgency, or incontinence. Breast: No breast lumps, nipple d/c, overlying skin changes, redness or skin retraction. Allergies and current medication updated:Yes EXAM: There were no vitals taken for this visit. GENERAL: pleasant, female in no apparent distress HEENT: Normocephalic, atraumatic, mucus membranes moist and no lesions NECK: Supple, full range of motion, no adenopathy and thyroid normal DERMATOLOGY: Normal, without lesions, non-icteric and non-hirsute BREAST: soft, non-tender, symmetric, no dominant mass, normal nipple-areolar complex, no lymphadenopathy and no nipple discharge CHEST: Normal inspiratory effort ABDOMEN: soft, non-tender and no masses PELVIC: external genitalia normal, normal Bartholin's glands, urethra, Blandburg's glands, no vulvar lesions, no cervical lesions, good vaginal support, physiologic discharge present, normal appearing perineal body and perianal region, well estrogenized BIMANUAL: uterus normal size, shape and consistency, no adnexal masses, non-tender and no cervical motion tenderness RECTOVAGINAL: deferred. NEURO: alert and oriented x3,exam grossly non-focal EXTREMITIES: normal ASSESSMENT/PLAN: 1) Health maintenance: Pap done with reflex HPV. Nutrition, exercise and routine health maintenance exams reviewed. Calcium/Vitamin D supplementation information provided. HPV vaccine: completed series 2) Contraception: Nuva Ring. Contraceptive options reviewed and information provided. 3) STD screening: Accepted STD check for Gonorrhea and Chlamydia. - wants called with results 4) Follow up one year or sooner as needed HELENA FRYE CNP CNOV Observed: 2018 Status: COMPLETED Source: [place] 8:[address] [facility] Office Visit (WOOB) MYRNA CARTER ([id number]) 1995 F Date Time Provider Department 01/26/18 8:00 AM HELENA FRYE (PRABHAKAR) WOOB During your visit today, we recorded the following information about you: Blood pressure Weight Height Last Period 112/64 92.1 kg 1.66 m 01/20/18 HELENA FRYE CNP 2018 8:56 AM Signed Myrna Carter is a 23 year old who presents for her annual gynecologic exam without complaints. 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 Menses: cycles every 25-30 days and 5 days of flow. Contraception: Nuva Ring HPV vaccine: Yes Last Pap: never Last mammogram: never Sexually active: Yes Patient concerns for STD exposure: No. Obstetric History T0 L0 SAB0 TAB0 Ectopic0 Multiple0 Live Births0 PAST MEDICAL HISTORY Diagnosis Date - Anxiety disorder 02/04/2013 (02/25/16): followed by psychiatry - Arthritis (02/25/16): previously seen by ortho - Constipation 02/04/2013 - Environmental allergies (02/25/16): seeing ENT - Environmental allergies 02/25/2016 - Hydradenitis 2011 Per dermatology - Migraine headache 08/09/2014 - Overweight 02/25/2016 - PMH - PAST MEDICAL HISTORY OF 01/29/2005 color vision - Polyarthralgia 02/25/2016 - PTSD (post-traumatic stress disorder) 02/04/2013 (02/25/16): followed by psychiatry - Severe depression (HCC) (02/25/16): followed by psychiatry PAST SURGICAL HISTORY Procedure Laterality Date - EXTRACTION ERUPTED TOOTH/EXR 03/28/15 all 4 wisdom teeth FAMILY HISTORY Problem Relation Age of Onset - Asthma Mother - Asthma Maternal Grandmother - Cancer Maternal Grandmother Uterine - GI Maternal Grandmother reflux - Colon Cancer Maternal Grandfather - spinal stenosis [Other] [OTHER] Maternal Grandmother - sciatic nerve issues [Other] [OTHER] Mother - carpal tunnel [Other] [OTHER] Mother - Spinal Stenosis [Other] [OTHER] Maternal Aunt - Spinal Stenosis [Other] [OTHER] Maternal Uncle - depression [Other] [OTHER] maternal side - Breast Cancer Maternal Grandmother This was great grandmother - Constipation [Other] [OTHER] Father As a younger child - Diabetes Maternal Uncle - Lipids Maternal Uncle - hereditary angioedema [Other] [OTHER] Maternal Aunt - Thyroid Mother SOCIAL HISTORY Social History Substance Use Topics - Smoking status: Current Every Day Smoker Packs/day: 0.25 Types: Cigarettes - Smokeless tobacco: Never Used - Alcohol use No REVIEW OF SYSTEMS Abdomen: No abdominal pain, nausea, vomiting, diarrhea, or constipation. No bloating, early satiety, indigestion, or increased flatulence. Bladder: No dysuria, gross hematuria, urinary frequency, urinary urgency, or incontinence. Breast: No breast lumps, nipple d/c, overlying skin changes, redness or skin retraction. Allergies and current medication updated:Yes EXAM: There were no vitals taken for this visit. GENERAL: pleasant, female in no apparent distress HEENT: Normocephalic, atraumatic, mucus membranes moist and no lesions NECK: Supple, full range of motion, no adenopathy and thyroid normal DERMATOLOGY: Normal, without lesions, non-icteric and non-hirsute BREAST: soft, non-tender, symmetric, no dominant mass, normal nipple-areolar complex, no lymphadenopathy and no nipple discharge CHEST: Normal inspiratory effort ABDOMEN: soft, non-tender and no masses PELVIC: external genitalia normal, normal Bartholin's glands, urethra, Blandburg's glands, no vulvar lesions, no cervical lesions, good vaginal support, physiologic discharge present, normal appearing perineal body and perianal region, well estrogenized BIMANUAL: uterus normal size, shape and consistency, no adnexal masses, non-tender and no cervical motion tenderness RECTOVAGINAL: deferred. NEURO: alert and oriented x3,exam grossly non-focal EXTREMITIES: normal ASSESSMENT/PLAN: 1) Health maintenance: Pap done with reflex HPV. Nutrition, exercise and routine health maintenance exams reviewed. Calcium/Vitamin D supplementation information provided. HPV vaccine: completed series 2) Contraception: Nuva Ring. Contraceptive options reviewed and information provided. 3) STD screening: Accepted STD check for Gonorrhea and Chlamydia. - wants called with results 4) Follow up one year or sooner as needed PRABHAKAR PEACOCK Psr 02/04/2018 4:42 PM Signed Pap logged and normal pap letter mailed to patient. Tiffanie Conner Psr Referring Provider: SELF [200] Allergies As of Date: 2018 Noted Allergy Reaction environmental [Other] 08/28/2008 5 - Intolerance Comments: Sneezing, itchy,watery eyes. flea/ bug bites TRAMADOL 12/04/2017 14 - Other: See Comments Comments: Elevated anxiety level Date Reviewed: 2018 Reviewed by: Helena Frye - Fully Assessed Primary Visit Diagnosis:Encounter for gynecological examination (general) (routine) without abnormal findings [Z01.419] Other Visit Diagnoses:Screening for cervical cancer [Z12.4] Encounter for screening for human papillomavirus (HPV) [Z11.51] Screen for STD (sexually transmitted disease) [Z11.3] Encounter for surveillance of vaginal ring hormonal contraceptive device [Z30.44] Order(s):PAP FLUID CERVICAL SCREENING [7846399] Order #: [id number]. #:[id number] GC/CHLAMYDIA DNA DET [SQGCCAMP] Order #: [id number]. #:[id number] Etonogestrel-Ethinyl Estradiol (NUVARING) 0.12-0.015 mg/24 hr vaginal ringUse 1 Each vaginally as directed. Insert vaginally and leave in place for 3 consecutive weeks, then remove for 1 week.Disp: 3 EachRfl: 3 Prescriptions as of 2018 Sig: ETONOGESTREL-ETHINYL ESTRADIO* Use 1 Each vaginally as direc* DIPHENHYDRAMINE 25 MG CAPSULE Take 1 capsule by mouth at be* PSEUDOEPHEDRINE 60 MG TABLET Take 1 tablet by mouth every * DEXTROAMPHETAMINE-AMPHETAMINE* Take 10 mg by mouth once flip* CLONAZEPAM 0.5 MG TABLET Take 0.5 mg by mouth twice da* Problem List As Of Date 2018 Noted Resolved Depression with anxiety [F41.8] INVALID FOR* Anxiety disorder [F41.9] INVALID FOR* PTSD (post-traumatic stress disorder) [F43.10] INVALID FOR* Constipation [K59.00] INVALID FOR* Migraine headache [G43.909] INVALID FOR* Polyarthralgia [M25.50] INVALID FOR* Environmental allergies [Z91.09] INVALID FOR* Overweight [E66.3] INVALID FOR* Prescriptions ordered this encounter Disp Refills Start End ETONOGESTREL-ETHINYL ESTRADIOL 0.12 * 3 Ea* 3 2018 Route: VAGINAL Sig: Use 1 Each vaginally as directed. Insert vaginally and leave in place for 3 consecutive weeks, then remove for 1 week. Medications Discontinued During This Encounter omeprazole (PRILOSEC) 20 mg capsule 30 c* 0 12/04/2017 2018 Route: ORAL Sig: Take 1 capsule by mouth daily before breakfast. 1/2 hr before meal. Patient not taking: Reported on 2018 Disc: Reason for discontinue is not on file. ondansetron (ZOFRAN, HYDROCHLORID* 15 t* 0 04/28/2017 2018 Route: ORAL Sig: Take 1 tablet by mouth every 8 hours as needed. Patient not taking: Reported on 2018 Disc: Reason for discontinue is not on file. Disposition: Return in 1 year (on 2019) for Annual Exam. Follow-up and Disposition History Recorded Letter Text Helena Frye CNP [facility] [address] [place], [place] [address] Myrna Carter [address] [facility] [address] 02/04/2018 [facility]: [id number] Dear Myrna, We are pleased to inform you that your recent Pap Test was within normal limits. Because Pap tests are so effective in the early detection of cervical cancer, you are encouraged to continue having the test at regular intervals. You will be due for a 1 year Gynecological Exam after this date 2019. If you have any questions regarding the above information, do not hesitate to call our office at between the hours of 8:00 a.m. and 5:00 p.m. Sincerely, Helena Frye CNP Encounter Status:Closed by EHLENA FRYE on 01/26/18 ALLERGIES ALLERGIES DATE TYPE / CODE NAME / CODE REACTION SEVERITY SOURCE 10/13/2018 Drug tramadol/F006 Other Unknown [place] Allergy/198429209( 001424([facility] SNOMED CT) ) Hospital Repository 12/04/2017 DRUG TRAMADOL OTHER: SEE [facility] [place] INGREDI/[id number]( [facility] SNOMED CT) [place] Repository 08/28/2008 Miscellaneous OTHER INTOLERANCE [facility] [place] Allergy/501292377( [facility] SNOM[facility]) [place] Repository ENCOUNTERS ENCOUNTERS ADMIT/DISCHARGE ACCOUNT NUMBER ADMITTING ENCOUNTER LOCATION SOURCE CLASS 11/17/2018/11/18/20 [id number] Ambulatory [address] Repository 11/14/2018 [id number] Emergency [facility]in[address] [place] [address] EMRoom: System 1DEMRBed: Repository [id number] 11/08/2018/11/11/20 [id number] Geo Haley Inpatient [address] ding:WPRoom: Repository ZC125Jdn: 1 10/28/2018/10/28/20 [id number] Ambulatory [address] ding:WPOUT Repository 10/13/2018/10/13/[id number] ding:WPOUTRo Repository om: [id number] 10/06/2018 [id number] [facility] ding:LABSPEC Repository 09/19/2018/09/20/20 [id number] Ambulatory [address] ding:WPOUTRo Repository om: [id number] 09/09/2018/09/09/20 [id number] Ambulatory [address] Repository 08/09/2018 [id number] [facility] ding:WOBLAB Repository 06/20/2018/06/20/20 [id number] Emergency BBuilding:ER [address] Repository 04/25/2018/04/25/20 [id number] Emergency BBuilding:ER [address] Repository 03/30/2018/03/30/20 [id number] Emergency BBuilding:ER [address] Repository 03/17/2018 [id number] [facility] ding:WOBLAB Repository 03/04/2018 [id number] [facility] ding:LABSPEC Repository 01/26/2018/02/02/20 [id number] Ambulatory [address] Repository PAYERS PAYERS ENCOUNTER GUARANTOR PAYER SUBSCRIBER SOURCE 11/14/2018 [facility] [id number] [facility] [address] Number: [id number] [facility] Date: [place], [place] [address]Xpp: (hp) 11/08/2018 MYRNA Carrillo Primary MYRNA Garcia [id number] Insurance:CARESOURCEP GILBERTDOB: [facility] Number: [id number] [id number] Repository [address]Pxk: [phone]) Date:2018-10-13P O [phone] () [address]ATTN: [place] [address]FF: 11/08/2018 Secondary NOT GIVENUNK Jose Insurance:SELF PAY [facility] Number: Effective Repository Date:2018-10-13 10/28/2018 MYRNA Carrillo Primary MYRNA Garcia [id number] Insurance:CARESOURCEP GILBERTDOB: [facility] Number: [id number] [id number] Repository [address]Gdy: [phone]) Date:2018-10-28P O [phone] () [address]ATTN: [place] [address]QV: 10/28/2018 Secondary NOT GIVENUNK [place] Insurance:SELF PAY [facility] Number: Effective Repository Date:2018-10-28 10/13/2018 MYRNA Carrillo Primary MYRNA Garcia [id number] E Insurance:CARESOURCEP GILBERTDOB: [facility] Number: [id number] [id number] Repository [address]Zas: [phone]) Date:2018-10-13P O [phone] () [address]ATTN: [place] [address]QO: 10/13/2018 Secondary NOT GIVENUNK Jose Insurance:SELF PAY [facility] Number: Effective Repository Date:2018-10-13 10/06/2018 MYRNA Carrillo Primary MYRNA Garcia [id number] Insurance:CARESOURCEP GILBERTDOB: [facility] Number: [id number], [place] [id number] Repository [address]Bly: [phone]) Date:2018-10-06P O [phone] () [address]ATTN: [place] [address]BF: 10/06/2018 Secondary NOT GIVENUNK Jose Insurance:SELF PAY [facility] Number: Effective Repository Date:2018-10-06 09/19/2018 MYRNA Carrillo Primary MYRNA Durbinoster [id number] Insurance:CARESOURCEP GILBERTDOB: [facility] Number: [id number], [place] [id number] Repository [address]Zkw: ([phone]) Date:2018-09-19P O [phone] () [address]ATTN: [place] [address]EE: 09/19/2018 Secondary NOT GIVENUNK [place] Insurance:SELF PAY [facility] Number: Effective Repository Date:2018-09-19 08/09/2018 MYRNA Carrillo Primary MYRNA Durbinoster [id number] Insurance:CARESOURCEP GILBERTDOB: [facility] Number: [id number], [place] [id number] Repository [address]Jmm: ([phone]) Date:2018-08-09P O [phone] () [address] [address]ATTN: [place] [address]LK: 08/09/2018 Secondary NOT GIVENUNK Jose Insurance:SELF PAY [facility] Number: Effective Repository Date:2018-08-09 06/20/2018 MYRNA Carrillo Primary MYRNA Carrillo [facility] GILBERTDOB: Insurance:[employer] GILBERTDOB: [facility] [id number] Repository [facility] [address] Number: [facility] [address] [facility] [place] [id number] [address], [place] [address]~[place] Date:2018-06-20 29573Eev: [phone] [email or web address] [id number] [phone] l: [phone]) Name:XPO Box (HP) (HP) [address], [place] [phone] (WP) [address]SR: 04/25/2018 MYRNA Carrillo Primary [facility] GILBERTDOB: [facility] [id number] Repository [address] Number: [address] [place], [place] [id number] [address]~[facility] Date:2018-04-25Tel: 330 [email or web address] [id number] [phone] l: [phone]) Name:XPO Box (HP) (HP) [address] [place] [address] [phone] () [phone]: 03/30/2018 MYRNA aCrrillo Primary MYRNA Carrillo [facility] GILBERTDOB: Insurance:[facility] GILBERTDOB: [facility] [id number] Repository [address] Number: [address] [place], [place] [id number] [address]~[facility] Date:2018-03-23Tel: 330 [email or web address] EnergyR[facility] [id number] [phone] l: [phone]) Name:XPO Box (HP) (HP) [address] [place] [address] [phone] (WP) [phone]: 03/17/2018 Myrna M Primary Aureliano MorilloOB: Revelo [id number] Insurance:[facility]HEMPolic [facility] Number: [place], [place] [id number] Repository [address]Tap: [phone] silvana Date:[id number] [phone] (HP) [address], [place] [address]DS: 03/17/2018 Secondary DELTA Revelo Insurance:AULTCAREPol GILBERTDOB: [facility] Number: [id number] [id number] Repository Date:[id number] [address] [address]SI: 03/17/2018 Tertiary NOT GIVENUNK [place] Insurance:SELF PAY [facility] Number: Effective Repository Date:2018-03-17 03/04/2018 Myrna Carrillo Primary Aureliano MorilloOB: Jose [id number] Insurance:ANTHEMPolic [id number] [facility] Number: [facility] [place] [id number] Repository [address]Oup: [phone] silvana Date:[id number] [phone] () [address], [place] [address]MY: 03/04/2018 Secondary NOT GIVENUNK [place] Insurance:SELF PAY [facility] Number: Effective Repository Date:2018-03-04
== END 2018-11-11 20:15 | disposition home or self-care (01) | DRG 540 ==
PROVIDERS: Admitting Provider Obstetrics & Gynecology; Family Provider Family Medicine; PCP Family Medicine; Referring Provider Obstetrics & Gynecology; Visit Provider Obstetrics & Gynecology
DX: O48.0 Post-term pregnancy (principal); Z3A.41 41 weeks gestation of pregnancy; O77.0 Labor and delivery complicated by meconium in amniotic fluid; O99.334 Smoking (tobacco) complicating childbirth; Z37.0 Single live birth; O62.2 Other uterine inertia
CPT/HCPCS: 59025; 59050; 85027; 86850; 86900; 99218; J7120; A4216; G0378; J2405

== ENCOUNTER → 2019-02-16 11:51 | Outpatient (CLI) | payer MEDICAID, SELFPAY | PROVIDERS: Visit Provider Obstetrics & Gynecology | DX: Z12.4 Encounter for screening for malignant neoplasm of cervix (principal) | CPT/HCPCS: 88175; G0145 ==

== ENCOUNTER → 2019-02-28 13:35 | Outpatient (CLI) | payer MEDICAID, SELFPAY ==
--- NOTE | 2019-03-03 10:33 | PCM.HP.BLA ---
History and Physical Date of Admission: 03/07/19 Surgical History and Physical Myrna Parekh, a 24 year old female 1 0 0 0 1, presents for hysteroscopy and D and C on March 07, 2019 at 11:30. -- Irregular Menses and EM Polyp on Ultrasound -- Daily bleeding everyday since C/S on 11-09-18 which began 3 months. Myrna claims it started suddenly and has been present 3 months. It occurs all the time. It is located in the vagina. Myrna characterizes it to be non-radiating. Myrna characterizes the quality mod to light bleeding every day. Severity is moderate and not improving; Additional comments are: Uses Nuvaring for control. Ultrasound shows endometrial polyp. MEDICATIONS HISTORY: Current medications prescribed by our practice are: 1. NuvaRing 0.12 mg -0.015 mg/24 hr vaginal, As directed for 3 weeks 3 days then out 4 days and repeat ALLERGIES: Tramadol, Anxiety Infections - Chicken pox and Chlamydia Illnesses - Depression, PTSD, Bipolar, Anxiety, Arthitis Accidents - None Hospitalizations - see surgery Review of Systems: GENERAL - Denies fever, or chills SKIN - Denies skin changes EYES - Denies visual changes EARS - Denies difficulty hearing NOSE - Denies nasal congestion or bleeding MOUTH - Denies sore throat or difficulty swallowing NECK - Denies pain or swelling RESPIRATORY - Denies shortness of breath or wheezing CARDIOVASCULAR - Denies palpitations or chest pain GASTROINTESTINAL - Denies nausea, vomiting, diarrhea, constipation GENITOURINARY - Denies dysuria, frequency of urination, incontinence of urine MUSCULOSKELETAL - Denies joint or muscle pain NEUROLOGICAL - Denies localized numbness or weakness PSYCHIATRIC - Denies depression or anxiety ENDOCRINE - Denies heat or cold intolerance, weight loss or gain HEMATO-IMMUNOLOGIC - Denies excesive bleeding with cuts SOCIAL HISTORY: Alcohol Use - occasionally not while Smoking - vaping Diet - no special diet Lifestyle - moderate stress lifestyle and single Exercise - active work Seat Belt Use - always 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 Illicit Drug Use - None Sexual Activity - multiple sexual partners Residence - Living with aunt's home, looking for a house with possible FOB Place of - [place], [place] Hours Worked - 39 hrs/week Children Name(s) - [place] Control - Nuva Ring FAMILY HISTORY: MENSTRUAL HISTORY: LMP Known?- C-SectionAmount/Duration - excess amount, Regularity - Regular, Frequency - monthly days, LMP - 11/09/19, Age Onset Menarche - 14 PAST PREGNANCIES: Total Pregnancies - 1; Full Term Pregnancies - 1; Premature - 0; Abortions, Induced - 0; Abortions, Spontaneous - 0; Ectopics - 0; Multiple Births - 0; Living Children - 1 SURGICAL HISTORY: 1. 2014 [place] Teeth Removal ; - 2. 11/09/2018 primary low transverse section ; Geo Haley M.D. - PHYSICAL EXAM BP- 110/72 Sitting, Left arm, regular cuff Weight- 209.34690 lbs Height- 65 inch BMI:34.85 CONSTITUTIONAL - NAD, well nourished, and well developed SKIN - No rash, lesions, or ulcers HEENT - Normocephalic, PERRLA, EOMI NECK - No nodes, no nuchal rigidity and thyroid normal size and texture LYMPH NODES - Palpation of lymph nodes in neck and groins within normal limits LUNGS - CTA x2 without wheezes, crackles or rales CARDIAC - Regular rate and rhythm without rubs, murmurs, or gallops ABDOMEN - Without hepatosplenomegaly, distention, masses, rebound, or guarding; normal bowel sounds; no hernias EXTREMITIES - No edema or calf tenderness NEUROLOGICAL - Cranial nerves II-XII grossly intact PSYCHIATRIC - A and O to time, place, person, mood and affect External Genitial Vagina - non-tender without lesions Urethra/Urethral Meatus - non-tender Bladder - non-tender Vagina - vaginal man are pink and moist without loss of rugae and no evidence of atropy Cervix - without cervical motion tenderness and has normal size and features without evident lesions Uterus - 5-6 cm in size, mobile and nontender Adnexa - clear without massess or tenderness ASSESSMENT/PLAN: 1. Abnormal Uterine Bleeding, Unspec Uncertain etiology but u/s today suggests this is due to an endometrial polyp. Discussed options for treatment and will proceed with D and C and Hysteroscopy. Discussed RBAs and all questions answered.
--- OUTSIDE RECORDS SUMMARY | 2019-08-02 13:08 | XMS RPT_ITS | CCD ---
:1995 External Reference #:[id number] Author Organization [employer] Care Team Providers Name Role Phone ALRED Unavailable Unavailable BALES Unavailable Unavailable BRIDGET Unavailable Unavailable BALES Unavailable Unavailable DURESKA Unavailable Unavailable BALES Unavailable Unavailable SHAZIA, (CYBER LEGAL ADVISOR) Unavailable Unavailable YOHAN, (CYBER LEGAL ADVISOR) Unavailable Unavailable PLAYL, M Unavailable Unavailable ANEL CHAVEZ Unavailable Unavailable PROVIDER Unavailable Unavailable Miedel Unavailable Unavailable Allergies Reported Allergen Reaction(s) Severity Date of Onset Location traMADol Translations: [ AOF 12-04-2017 - [facility] TRAMADOL] Prentice Reposito ry OTHER Translations: [ AOF Unknown 08-28-2008 - [facility] OTHER] Prentice Reposito ry Problems Active Problems Category Problem Name Status Date Location Allergic reactions Allergy status to Active 11-14-2018 - [facility] narcotic agent status (53496 ) Nonspecific chest pain Other chest pain Active 11-14-2018 - [facility] (51641) Pleurisy; pneumothorax; Pleural effusion, not Active 11-14-20 [facility] pulmonary collapse elsewhere classified ( 78609) Past or Other Problems Category Problem Name Status Date Location Abdominal pain Epigastric pain Completed 12-04-2017 - [facility] (74233) Results Result Name Value Range Unit Interpretation Flag Date Location progress on 2018-10 Protein HNO ID: [id number]: Leola Mejía (Director International) Normal 11-17-2018 [place] mass conc LewisService: (none)Author Type: Nurse Clinic PractitionerType: Progress NotesFiled: [place] 11/17/2018 3:16 PMNote ([id number]) Text:SubjectiveHPIPatient presents with:Chest Congestion: cough x 1 weekPt status post c/s 11/09. States symptoms started 2 days later.Seen in ED Wednesday 11/14 for atypical chest pain, states no longer havingchest pain symptoms.Review of SystemsConstitutional: Positive for chills and fever. Negative formalaise/fatigue.HENT: Positive for congestion and sore throat. Negative for ear pain.Eyes: Negative for discharge and redness.Respiratory: Positive for cough. Negative for hemoptysis, sputumproduction, shortness of breath and wheezing.Cardiovascular: Negative for chest pain, palpitations and leg swelling.Gastrointestinal: Negative for abdominal pain, diarrhea, nausea andvomiting.Skin: Negative for rash.Neurological: Negative for headaches.PAST MEDICAL HISTORYDiagnosis Date- Anxiety disorder 02/04/2013 (02/25/16): followed by psychiatry- Arthritis (02/25/16): previously seen by ortho- Constipation 02/04/2013- Environmental allergies (02/25/16): seeing ENT- Environmental allergies 02/25/2016- Hydradenitis 2011 Per dermatology- Migraine headache 08/09/2014- Overweight 02/25/2016- PMH - PAST MEDICAL HISTORY OF 01/29/2005 color vision- Polyarthralgia 02/25/2016- PTSD (post-traumatic stress disorder) 02/04/2013 (02/25/16): followed by psychiatry- Severe depression (HCC) (02/25/16): followed by psychiatryPAST SURGICAL HISTORYProcedure Laterality Date- EXTRACTION ERUPTED TOOTH/EXR 03/28/15 all 4 wisdom teethALLERGIES Environmental [Other]; TramadolMEDICATIONSalbuterol (PROVENTIL) 2.5 mg /3 mL (0.083 %) nebulizer solution Use 3 mLvia nebulizer every 6 hours as needed. 1 vial contains 3 ml.amoxicillin-clavulanic acid (AUGMENTIN) 875-125 mg per tablet Take 1tablet by mouth twice daily for 10 days.clonazePAM (KLONOPIN) 0.5 mg tablet Take 0.5 mg by mouth twice daily asneeded.dextroamphetamine-amphetamine (ADDERALL) 10 mg tablet Take 10 mg by mouthonce daily.diphenhydrAMINE (BENADRYL) 25 mg capsule Take 1 capsule by mouth atbedtime as needed.Etonogestrel-Ethinyl Estradiol (NUVARING) 0.12-0.015 mg/24 hr vaginal ringUse 1 Each vaginally as directed. Insert vaginally and leave in place for3 consecutive weeks, then remove for 1 week.predniSONE (DELTASONE) 20 mg tablet Take 2 tablets by mouth once daily for5 days. Take daily with food.pseudoephedrine (SUDAFED) 60 mg tablet Take 1 tablet by mouth every 6hours as needed.FAMILY HISTORYProblem Relation Age of Onset- Asthma Mother- Thyroid Mother- other (sciatic nerve issues) Mother- other (carpal tunnel) Mother- other (Constipation) Father As a younger child- Colon Cancer Maternal Grandfather - Asthma Maternal Grandmother- Cancer Maternal Grandmother Uterine- GI Maternal Grandmother reflux- Breast Cancer Maternal Grandmother This was great grandmother- other (spinal stenosis) Maternal Grandmother- other (Spinal Stenosis) Maternal Aunt- other (Spinal Stenosis) Maternal Uncle- other (depression) Other maternal side- Diabetes Maternal Uncle- Lipids Maternal Uncle- other (hereditary angioedema) Maternal AuntSocial HistorySubstance Use Topics- Smoking status: Current Every Day Smoker Packs/day: 0.50 Types: Cigarettes- Smokeless tobacco: Never Used- Alcohol use Yes Comment: socialObjectivePhysical ExamConstitutional: She is well-developed, well-nourished, and in no distress.HENT:Head: Normocephalic.Right Ear: Tympanic membrane, external ear and ear canal normal.Left Ear: Tympanic membrane, external ear and ear canal normal.Nose: Rhinorrhea present. Right sinus exhibits no maxillary sinustenderness and no frontal sinus tenderness. Left sinus exhibits nomaxillary sinus tenderness and no frontal sinus tenderness.Mouth/Throat: Posterior oropharyngeal erythema (PND) present.Eyes: Conjunctivae are normal.Neck: Normal range of motion. Neck supple.Cardiovascular: Normal rate, regular rhythm and normal heart sounds.Pulmonary/Chest: Effort normal. No respiratory distress. She has nowheezes. She has rhonchi (faint scattered rhonchi, good air exchange).Abdominal: Soft. She exhibits no distension. There is no tenderness.Lymphadenopathy: She has no cervical adenopathy.Skin: Skin is warm and dry. No rash noted.Nursing note and vitals reviewed.ASSESSMENT/PLAN:1. Acute bronchitis, unspecified organism - ICD9: 466.0, ICD10: J20.5-Eiwcxbnzq-Beajkfexqm-Albuterol nebulizer treatments at home PRN-F/u with pcp in 3-5 days or sooner if symptoms are not improving orworsening-Pt has an online content coordinator f/u directly after this visit, encouraged pt nandini Craig Of orders, pt. verbalized understanding.Prescription instructions reviewed with patient as applicable. Patientadvised if symptoms do not improve or if symptoms worsen sooner, tocontact their primary care physician. Potential red flag symptomsdiscussed with the patient. Reviewed appropriate action plan to take ifred flag symptoms occur. Patient agreeable to treatment plan.Leola Garcia APRN.JAYLON cabrera on 2018-11-17 CNOV Office Visit Normal 11-17-2018 Michael and (UCWSTR) --------MYRNA CARTER [facility] ([id number]) 1995 FDat e Time Provider Kqmmcdknuf40/26/18 2:15 PM LEOLA GARCIA (SEAM FELLER) [facility] Rodriguez and During your visit today, we recorded the following information about you: Temperature Pulse (28597) Respiration Blood pressure 9 9.3 degrees 86/minute 18/minute 110/70 Weight 102.1 kgLeola Garcia APRN.CNP 11/17/2018 3:16 PM SignedSubjectiveHPIPatient presents with:Chest Congestion: cough x 1 weekPt status post c/s 11/09 . States symptoms started 2 days later.Seen in ED Wednesday 11/14 for atypical chest pain, states no longer having chestpain symptoms.Review of SystemsConstitutional: Positive for chills and feve r. Negative for malaise/fatigue.HENT: Positive for congestion and sore throat. Negative for ear clarence n.Eyes: Negative for discharge and redness.Respiratory: Positive for cough. Negative for hemoptys is, sputum production,shortness of breath and wheezing.Cardiovascular: Negative for chest pain, pal pitations and leg swelling.Gastrointestinal: Negative for abdominal pain, diarrhea, nausea and vomitin g.Skin: Negative for rash.Neurological: Negative for headaches.PAST MEDICAL HISTORYDiagnosis Loc e- Anxiety disorder 02/04/2013 (02/25/16): followed by psychiatry- Arthritis (02/25/16): previously seen by ortho- Constipation 02/04/2013- Environmental allergies (02/25/16): seeing ENT- Environmental allergies 02/25/2016- Hydradenitis 2011 Per dermatology- Migraine headache 08/09/2014- Overweight 02/25/2016- PMH - P AST MEDICAL HISTORY OF 01/29/2005 color vision- Polyarthralgia 02/25/2016- PTSD (post-traumatic stress disorder) 02/04/2013 (02/25/16): followed by psychiatry- Severe depression (HCC) (02/25/16): followed by psychiatryPAST SURGICAL HISTORYProcedure Laterality Date- EXTRACTION ERUPTED TOOTH/EXR 03/28/15 all 4 wisdom teethALLERGIES Envir onmental [Other]; TramadolMEDICATIONSalbuterol (PROVENTIL) 2.5 mg /3 mL (0.083 %) nebulizer solution Use 3 mL vianebulizer every 6 hours a s needed. 1 vial contains 3 ml.amoxicillin- clavulanic acid (AUGMENTIN) 875-125 mg per tablet Take 1 tablet bymouth twice daily for 10 days.clonazePAM (KLONOPIN) 0.5 mg tablet Take 0.5 mg by mouth twice daily as needed.dextroamphetamine-amphetamine (ADDERALL) 10 mg tablet Take 10 mg by mouth o ncedaily.diphenhydrAMINE (BENADRYL) 25 mg capsule Take 1 capsule by mouth at bedtime asneeded.Etonoges trel-Ethinyl Estradiol (NUVARING) 0.12-0.015 mg/24 hr vaginal ring Use1 Each vaginally as directed. Insert vaginally and leave in place for 3consecutive weeks, then remove for 1 week.predniSONE (DELTA SONE) 20 mg tablet Take 2 tablets by mouth once daily for 5days. Take daily with food.pseudoephedr ine (SUDAFED) 60 mg tablet Take 1 tablet by mouth every 6 hours asneeded.FAMILY HISTORYProbl em Relation Age of Onset- Asthma Mother- Thyroid Mother- other (sciatic nerve issues) Mother- other (carpal tunnel) Mother- other (Constipation) Father As a younger child- Colon Cancer Maternal Grandf ather - Asthma Maternal Grandmother- Cancer Maternal Grandmother Uterine- GI Maternal Grandmo ther reflux- Breast Cancer Maternal Grandmother This was great grandmother- other (spinal s tenosis) Maternal Grandmother- other (Spinal Stenosis) Maternal Aunt- other (Spinal Stenosis) Mate rnal Uncle- other (depression) Other maternal side- Diabetes Maternal Uncle- Lipids Maternal Uncle - other (hereditary angioedema) Maternal AuntSocial HistorySubstance Use Topics- Smoking status: Curr ent Every Day Smoker Packs/day: 0.50 Types: Cigarettes- Smokeless tobacco: Never Used- Alcohol use Yes Comment: socialObjectivePhysical ExamConstitutional: She is well-developed, well-nourish ed, and in no distress.HENT:Head: Normocephalic.Right Ear: Tympanic membrane, external ear and e ar canal normal.Left Ear: Tympanic membrane, external ear and ear canal normal.Nose: Rhinorrhea pres ent. Right sinus exhibits no maxillary sinus tendernessand no frontal sinus tenderness. Left sinus exhibits no maxillary sinustenderness and no frontal sinus tenderness.Mouth/Throat: Pos terior oropharyngeal erythema (PND) present.Eyes: Conjunctivae are normal.Neck: Normal range of motion. Neck supple.Cardiovascular: Normal rate, regular rhythm and normal heart sounds.Pulmonar y/Chest: Effort normal. No respiratory distress. She has no wheezes.She has rhonchi (faint scattered rhonchi, good air exchange).Abdominal: Soft. She exhibits no distension. There is no tenderness.Lymph adenopathy: She has no cervical adenopathy.Skin: Skin is warm and dry. No rash noted.Nursing note and vitals reviewed.ASSESSMENT/PLAN:1. Acute bronchitis, unspecified organism - ICD9: 466.0, ICD10: J20.9- Snlrchzgf-Xkkcrqhbwy-Qhqjatmcb nebulizer treatments at home PRN-F/u with pcp in 3-5 days or sooner if symptoms are not improving or worsening-Pt has an online content coordinator f/u directly after this visit, eliazar mishra pt to notify Of orders, pt. verbalized understanding.Prescription instructions reviewed with p atient as applicable. Patient advisedif symptoms do not improve or if symptoms worsen sooner, to c ontact theirprimary care physician. Potential red flag symptoms discussed with thepatient. Reviewed ap propriate action plan to take if red flag symptoms occur.Patient agreeable to treatment plan.Leola Garcia APRN.CNPReferring Provider: SELF [200]Allergies As of Date: 11/17/2018 Noted Allergy Alice ctionenvironmental [Other] 08/28/2008 5 - Intolerance Comments: Sneezing, itchy,watery eyes. flea/ bug bitesTRAMADOL 12/04/2017 14 - Other: See Comments Comments: Elevated anxiety levelDate Reviewed: 11/17/2018Reviewed by: Steph Shaw Ma - Fully AssessedReason for Visit: Chest Congestion [236] Cmt: cough x 1 weekPrimary Visit Diagnosis:Acute bronchitis, unspecified organism [J20.9]Order(s):pre dniSONE (DELTASONE) 20 mg tabletTake 2 tablets by mouth once daily for 5 days. Take daily with food.D isp: 10 tabletRfl: 0 albuterol (PROVENTIL) 2.5 mg /3 mL (0.083 %) nebulizer solutionUse 3 mL v ia nebulizer every 6 hours as needed. 1 vial contains 3 ml.Disp: 100 VialRfl: 0 amoxicillin-clavu lanic acid (AUGMENTIN) 875-125 mg per tabletTake 1 tablet by mouth twice daily for 10 days.Disp: 20 t abletRfl: 0Prescriptions as of 11/17/2018 Sig: ALBUTEROL SULFATE 2.5 MG/3 ML* Use 3 mL via nebulizer e very * AMOXICILLIN 875 MG-POTASSIUM * Take 1 tablet by mouth twice * CLONAZEPAM 0.5 MG TABLET Munir e 0.5 mg by mouth twice da* DEXTROAMPHETAMINE- AMPHETAMINE* Take 10 mg by mouth once flip* DIPHENHYDRA MINE 25 MG CAPSULE Take 1 capsule by mouth at be* Patient not taking: Reported on 11/17/2018 ETONO GESTREL-ETHINYL ESTRADIO* Use 1 Each vaginally as direc* Patient not taking: Reported on 11/17/20 18 PREDNISONE 20 MG TABLET Take 2 tablets by mouth once * PSEUDOEPHEDRINE 60 MG TABLET Take 1 tablet b y mouth every * Patient not taking: Reported on 11/17/2018Problem List As Of Date 11/17/2018 Noted Res olved Depression with anxiety [F41.8] INVALID FOR* Anxiety disorder [F41.9] INVALID FOR* PTSD (p ost-traumatic stress disorder) [F43.10] INVALID FOR* Constipation [K59.00] INVALID FOR* Migraine headac he [G43.909] INVALID FOR* Polyarthralgia [M25.50] INVALID FOR* Environmental allergies [Z91 .09] INVALID FOR* Overweight [E66.3] INVALID FOR*Prescriptions ordered this encounter Disp Refills Start End PREDNISONE 20 MG TABLET 10 t* 0 11/17/2018 11/22/2018 Route: ORAL Sig: Take 2 tablets by mouth once daily for 5 days. Take daily with food. ALBUTEROL SULFATE 2.5 MG/3 ML (0.083* 100 * 0 10/24 Route: NEBULIZATION Sig: Use 3 mL via nebulizer every 6 hours as needed. 1 vial contains 3 ml . AMOXICILLIN 875 MG-POTASSIUM CLAVULA* 20 t* 0 11/17/2018 11/27/2018 Route: ORAL Sig: Take 1 tabl et by mouth twice daily for 10 days.Disposition: Return if symptoms worsen or fail to improve.Follow-up and Disposition History RecordedEncounter Number: [id number] Status:Closed by LEOLA GARCIA on 11/17/18 urinalysis,microscopic on 2018-11-15 Bacteria Moderate (6-50) Negative Normal 11-15-2018 [facility] (03269) Comment: Performed By: #### UAMAC, UA JANES ####[id number] [place] [address] Epithelial Cells 0 - 2 3-5 Normal 11-15-2018 [facility] (35395) Comment: Performed By: #### UAMAC, UA JANES ####[address] [address] RBC LM.HPF #/area (Urine 0 - 2 0-2 Normal 11-15 [facility] (26956) sed) Comment: Performed By: #### UAMAC, UA JANES ####[address] [address] WBC LM.HPF #/area (Urine 3 - 5 0-5 Normal 11-15 [facility] (36965) sed) Comment: Performed By: #### UAMAC, UA JANES ####[facility] [address] [place] [address] cta chest w/ + w/o contrast on 2018-11-15 CTA Chest w/ + Patient Name: MYRNA CARTER Normal 11-15-2018 [facility] w/o Contrast System CT Exam Date/Time 11/14/2018 (62032) 22:55:33 EST Exam CTA Chest w/ + w/o Contrast Ordering Physician MD KATHY, STEPHANIE Accession Number [id number] CPT4 Codes 15458 (), Q9967 (CT ISOVUE 370MG/[id number]) Reason For Exam CHEST PAIN, ACUTE, NONSPECIFIC, [...] and Time: 11/14/2018 11:12 pm Signed by: WOHLWEND, MD, MERCEDES R Transcribed Date and Time: 11/14/2018 11:07 urinalysis,macro on 2018-11-14 Appearance Clear Clear Normal 11-14-2018 [facility] (63853) Comment: Performed By: #### UAMAC, UA JANES ####[facility] [place] [address] Bilirubin,Ur Negative Negative Normal 11-14-2018 [facility] (60631) Comment: Performed By: #### UAMAC, UA JANES ####[facility] [place] [address] Color Yellow Lt. Yellow Normal 11-14-2018 [facility] (89289) Comment: Performed By: #### UAMAC, UA JANES ####[facility] [place] [address] Glucose Ql (U) NEG (Normal) Negative Normal 11-14-2018 [facility] (80154) Comment: Performed By: #### UAMAC, UA JANES ####[id number] [place] [address] Ketone,Urine Negative Negative Normal 11-14-2018 [facility] (03666) Comment: Performed By: #### UAMAC, UA JANES ####[facility] [place] [address] Leukocytes 1 + Negative Normal 11-14-2018 [facility] (26539) Comment: Performed By: #### UAMAC, UA JANES ####[facility] [place] [address] Nitrites NEG Negative Normal 11-14-2018 [facility] (91231) Comment: Performed By: #### UAMAC, UA JANES ####[facility] [place] [address] Occult Blood,Ur 2+(50) Negative Normal 11-14-2018 [facility] (55385) Comment: Performed By: #### UAMAC, UA JANES ####[facility] [place] [address] pH Test strip (U) 7.0 5.0-8.0 Normal 11-14-2018 [facility] (44673) Comment: Performed By: #### UAMAC, UA JANES ####[id number] [place] [address] Specific [place],Urine 1.005 1.005-1.030 Normal 11-14 [facility] (31277) Comment: Performed By: #### UAMAC, UA JANES ####[id number] [place] [address] Total Protein,Urine NEG Negative Normal 11-14-2018 [facility] (43651) Comment: Performed By: #### UAMAC, UA JANES ####[address] [place] [address] Urobilinogen Normal (0.2) 0-1 Normal 11-14-2018 [facility] (21578) Comment: Performed By: #### UAMAC, UA JANES ####[address] [place] [address] hemogram w/ autodiff on 2018-11-14 Abs Baso Cnt 0.0 0.0-0.2 10*3/uL Normal 11-14-2018 [facility] (27504) Comment: Performed By: #### HEMDF, BM P3 ####[address] [place] [address] Abs Neutrophile Cnt 9.6 1.8-7.0 10*3/uL High 11-14-2018 [facility] (43959) Comment: Performed By: #### HEMDF, BM P3 ####[address] [place] [address] Basophils/100 WBC Auto (Bld) 0.3 0.0-2.0 % Normal 1 01-15-2018 [facility] (94489) Comment: Performed By: #### HEMDF, BM P3 ####[address] [place] [address] Eosinophils Auto #/vol 0.5 0.0-0.5 10*3/uL Normal 018 [facility] (Bld) (30189) Comment: Performed By: #### HEMDF, BM P3 ####[address] [place] [address] Eosinophils/100 WBC Auto (Bld) 3.7 1.0-6.0 % Normal 11-14-2018 [facility] (48732) Comment: Performed By: #### HEMDF, BM P3 ####[id number] [place] [address] Granulocytes/100 WBC (Bld) 72.7 40.0-80.0 % Normal [facility] (45457) Comment: Performed By: #### HEMDF, BM P3 ####[id number] [place] [address] Lymphocytes Auto #/vol 2.2 1.0-4.3 10*3/uL Normal 018 [facility] (Bld) (40070) Comment: Performed By: #### HEMDF, BM P3 ####[address] [place] [address] Lymphocytes/100 WBC Auto (Bld) 16.3 20.0-40.0 % Low 11-14-2018 [facility] (71492) Comment: Performed By: #### HEMDF, BM P3 ####[id number] [place] [address] Monocytes Auto #/vol (Bld) 0.9 0.0-0.8 10*3/uL High [facility] (03995) Comment: Performed By: #### HEMDF, BM P3 ####[address] [place] [address] Monocytes/100 WBC Auto (Bld) 7.0 2.0-10.0 % Normal 1 01-15-2018 [facility] (65447) Comment: Performed By: #### HEMDF, BM P3 ####[id number] [place] [address] Erythrocyte distribution 13.8 11.5-14.5 % Normal 11-14 [facility] width Auto Ratio (RBC) (55048) Comment: Performed By: #### HEMDF, BM P3 ####[id number] [place] [address] Hematocrit Auto Volume 28.8 35.0-47.0 % Low 018 [facility] Fraction (Bld) (0000 0) Comment: Performed By: #### HEMDF, BM P3 ####[id number] [place] [address] Hemoglobin mass conc (Bld) 9.4 11.7-16.0 g/dL Low [facility] (68752) Comment: Performed By: #### HEMDF, BM P3 ####[id number] [place] [address] MCH Auto Entitic mass 25.8 26.0-34.0 pg Low 11-14-20 18 [facility] (RBC) (44900) Comment: Performed By: #### HEMDF, BM P3 ####[id number] [place] [address] MCHC Auto mass conc 32.5 32.0-36.0 % Normal 11-14-2018 [facility] (RBC) (14945) Comment: Performed By: #### HEMDF, BM P3 ####[id number] [place] [address] MCV Auto Entitic volume 79.3 79.0-98.0 fL Normal 2017 [facility] (RBC) (77826) Comment: Performed By: #### HEMDF, BM P3 ####[id number] [place] [address] Platelet mean volume Auto 7.2 7.4-10.4 fL Low 10-24 [facility] Entitic volume (Bld) (51497) Comment: Performed By: #### HEMDF, BM P3 ####[id number] [place] [address] Platelets Auto #/vol 357 140-440 10*3/uL Normal 8 [facility] (Bld) (66599) Comment: Performed By: #### HEMDF, BM P3 ####[id number] [place] [address] RBC Auto #/vol (Bld) 3.63 3.80-5.20 10*6/uL Low 8 [facility] (36089) Comment: Performed By: #### HEMDF, BM P3 ####[id number] [place] [address] WBC Auto #/vol (Bld) 13.0 3.6-10.7 10*3/uL High 8 [facility] (92291) Comment: Performed By: #### PAVITHRA BM P3 ####[facility] [id number] [place] [address] basic metabolic panel on 2018-11-14 Calcium mass conc 8.2 8.4-10.4 mg/dL Low 11-14-2018 [facility] (44289) Comment: Performed By: #### PAVITHRA BM P3 ####[facility] [id number] [place] [address] Glucose mass conc 85 70-100 mg/dL Normal 11-14-2018 [facility] (86885) Comment: Performed By: #### PAVITHRA BM P3 ####[facility] [id number] [place] [address] Urea nitrogen mass conc 10 7-20 mg/dL Normal 2017 [facility] (27155) Comment: Performed By: #### HEMHUGO BM P3 ####[facility] [id number] [place] [address] Anion gap 3 molar conc 7 Normal 018 [facility] (80447) Comment: Performed By: #### HEMHUGO BM P3 ####[facility] [id number] [place] [address] CO2 molar conc 23 22-30 mmol/L Normal 11-14-2018 [facility] (46188) Comment: Performed By: #### HEMHUGO BM P3 ####[facility] [id number] [place] [address] Creatinine mass conc 0.58 0.52-1.25 mg/dL Normal 8 [facility] (98185) Comment: Performed By: #### HEMDF BM P3 ####[facility] [address] [place] [address] GFR/1.73 sq M > 60.0 >60 mL/min/{1.73_m2} Normal 8 [facility] predicted among Syst em (20060) blacks MDRD vol rate/area (S/P/Bld) Comment: Performed By: #### HEMHUGO BM P3 ####[facility] [place] [address] GFR/1.73 sq M > 60.0 >60 mL/min/{1.73_m2} Normal 8 [facility] predicted among Syst em (84758) non-blacks MDRD vol rate/area (S/P/Bld) Comment: Result Comment: Source- MDRD equation with creatinine calibration to IDMS(NKDEP) eGFR not recomme nded for drug dose adjustment Performed By: #### HEMDF, BM P3 ####[employer] [place] [address] Potassium molar conc 4.0 3.5-5.1 mmol/L Normal 8 [employer] ([id number]) Comment: Performed By: #### HEMDF, BM P3 ####[employer] [place] [address] Chloride molar conc 108 98-107 mmol/L High 11-14-2018 [facility] [employer] ([id number]) Comment: Performed By: #### HEMDF, BM P3 ####[employer] [place] [address] Sodium molar conc 138 135-145 mmol/L Normal 11-14-2018 [facility] (36806) Comment: Result Comment: NOTE: New So dium Reference Range effective 2018 @ 10:00 Performed By: #### HEMDF, BM P3 ####[employer] [place] [address] progress on 2018-08 Protein mass conc HNO ID: [id number] Normal [facility] Author: Kayce Terrazas ([id number]) Service: (none) Author Type: Physician Type: Progress Notes Filed: 09/09/2018 10:53 AM Note Text: 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 No significant medical informat ion discussed. No charge. Nidhi May on 2018-09-09 LINDA Office Visit Normal 09-09-2018 Michael rendon (JANET) --------MYRNA CARTER ([id number]) 1995 FDat e Time Provider Zgnyzdmdsp05/18/18 9:15 AM KAYCE OLIVER During Clev eland your visit today, we recorde d the following information about you:Kayce Oliver MD 09/09/2018 10:53 ( [id number]) AM SignedMeet the pediatrici an visit. No significant medical information discussed. Nocharge.Kayce Oliver M.D.Referring Prov ider: SELF [200]Allergies As of Date: 09/09/2018 Noted Allergy Reactionenvironmental [Other ] 08/28/2008 5 - Intolerance Comments: Sneezing, itchy,watery eyes. flea/ bug bitesTRAMADOL 12/04/2017 14 - Other: See Comments Comments: Elevated anxiety levelDate Reviewed: 09/09/2018Reviewed by: Jus Oliver - Fully AssessedPrimary Visit Diagnosis:MEET WITH PHYSICIANPrescriptions as of 09/09/2018 Sig: ETONOGESTREL-ETHINYL ESTRADIO* Use 1 Each vaginally as direc* DIPHENHYDRAMINE 25 MG CAPSULE Take 1 capsule by mouth at be* PSEUDOEPHEDRINE 60 MG TABLET Take 1 tablet by mouth every * DE XTROAMPHETAMINE-AMPHETAMINE* Take 10 mg by mouth once flip* CLONAZEPAM 0.5 MG TABLET Take 0.5 mg by arminda th twice da*Problem List As Of Date 09/09/2018 Noted Resolved Depression with anxiety [F41.8] INVALID FOR* Anxiety disorder [F41.9] INVALID FOR* PTSD (post-traumatic stress disorder) [F43.10] INVALID F OR* Constipation [K59.00] INVALID FOR* Migraine headache [G43.909] INVALID FOR* Polyarthralgia [M25.50] INVALID FOR* Environmental allergies [Z91.09] INVALID FOR* Overweight [E66.3] INVALID FOR*Encounte r Number: [id number] Status:Closed by KAYCE OLIVER MD on 09/09/18 patient summary documents on 2018-06-20 Patient Summary Documents Normal - [facility] ([place]) ([id number]) pat edu on Pat Edu Normal 06-20-2018 [facility] ([place]) ([id number]) ed note-provider on 2018-06-20 Protein Normal 06-20-2018 [facility] ([place]) ([id number]) rosa on 2018-04-30 ROSA . MICRO - MicrobiologyPROCEDURE: Normal 04-30-[address] [facility] Culture Herpes Virus ACCESSION: [facility] ([place]) [phone] [*1]SOURCE: Genital, ([id number]) Female BODY SITE: VaginaCOLLECTED DATE/TIME: 04/25/2018 21:58 EDT RECEIVED DATE/TIME: 04/26/2018 14:16 EDTSTART DATE/TIME: 04/26/2018 14:17 EDT FREE TEXT SOURCE:FINAL REPORTSFinal Report []Verified Date/Time/Personnel: 04/30/2018 10:42 EDTHerpes Simplex Virus Type 2Virus DETECTED in tissue culture.Comment: Significant clinical differences between HSV 1and 2 in recurrence frequency, risk in , andneonatal sequela are well documented.PRELIMINARY REPORTSPreliminary Report []Verified Date/Time/Personnel: 04/29/2018 08:13 EDTNo Herpes virus detected to date. Negative cultures areheld for at least 6 days.Performing Locations*1: This test was performed at: [facility], [address] [place] [address], [address] [place] [address] Comment: Performed By: #### ROSA #### [address] [address] vagdna on 5 VAGDNA . MICRO - MicrobiologyPROCEDURE: Normal 04-27-[address] [facility] Affirm Pathogens DNA ACCESSION: [facility] ([place]) [phone] Direct Probe (08388) [*1]SOURCE: Vaginal Fluid BODY SITE: VaginaCOLLECTED DATE/TIME: 04/25/2018 21:58 EDT RECEIVED DATE/TIME: 04/26/2018 14:16 EDTSTART DATE/TIME: 04/26/2018 14:17 EDT FREE TEXT SOURCE:FINAL REPORTSFinal Report []Verified Date/Time/Personnel: 04/27/2018 09:58 EDTCandida species DNA Probe NegativeGardnerella vaginalis DNA Probe PositiveTrichomonas vaginalis DNA Probe NegativePerforming Locations*1: This test was performed at: [facility], [address] [place] [address], [address] Comment: Performed By: #### AFFIRM ## ##[address] [address] ngpcr on 2018-04-27 GC PCR Source Genital Female Normal 04-27-2018 [facility] ([place]) ([id number]) Comment: Performed By: #### CTPCR, NG PCR1 ####[address] [address] N. gonorrhoeae (PCR) Negative Negative Normal 8 [facility] ([place]) (0000 0) Comment: Result Comment: Transport tu be received with two swabs. Review collection procedure. Inappropriate col lection may cause aberrant results.Molecular (PCR) assay performed on the Alejandra Ebenezer 4800 System. Performed By: #### CTPCR, NG PCR1 ####[address] [address] N. gonorrhoeae Interp See NG Interp N Normal [facility] ([place]) (0000 0) Comment: Result Comment: N. gonorrhoe ae DNA not detected. Specimen is presumptive negative for N. gonorrhoeae. A negative result does not preclude Neisseria gonorrhoeae infection becaus e results depend on adequate specimen collection, absence of inhib itors, and sufficient DNA to be detected.See NG Interp N Performed By: #### CTPCR, NG PCR1 ####[address] [address] ctpcr on 2018-04-27 C. trachomatis Interp See CT Interp N Normal [facility] ([place]) (0000 0) Comment: Result Comment: C. trachomat is DNA not detected. Specimen is presumptive negative for C. trachomatis. A negative result does not preclude C. trachomatis infection becaus e results depend on adequate specimen collection, absence of inhib itors, and sufficient DNA to be detected.See CT Interp N Performed By: #### CTPCR, NG PCR1 ####[facility] [place] [address] C.trachomatis PCR Negative Negative Normal 04-27-2018 [facility] ([place]) (0000 0) Comment: Result Comment: Transport tu be received with two swabs. Review collection procedure. Inappropriate col lection may cause aberrant results.Molecular (PCR) assay performed on the Aeljandra Ebenezer 4800 system. Performed By: #### CTPCR, NG PCR1 ####[facility] [place] [address] Chlam Source Genital Female Normal 04-27-2018 [facility] ([place]) ([id number]) Comment: Performed By: #### CTPCR, NG PCR1 ####[facility] [place] [address] patient summary documents on 2018-04-26 Patient Summary Documents Normal 06-0 [facility] ([place]) ([id number]) pat edu on [facility] Edu Normal 04-26-2018 [facility] ([place]) ([id number]) [facility] note on 2018-04-26 [facility] Note Normal 0 04-26-2018 [facility] ([place]) ([id number]) cnco on 2018-04-08 Erythrocyte Letter TextPhone: [phone] Normal 03-23 [place] distribution [phone] Carter6391 Clinic width Auto Ratio [place] RdW[address] [facility] ([facility]) [id number] #: [id number]) [id number] ,Due to a change in the provider's schedule it has been necessary toreschedule your Appointment.Your original appointment was scheduled for 06/16/2018 at 08:40 AM withSamm Bales M.D.Your new appointment is now scheduled on 07/21/18 at 08:40 AM with Marsha Baca.If this new appointment is not convenient for you, please contact our officeat [phone].Thank you for choosing the [facility] as your Healthcare Provider.Sincerely,Internal MedicineAppointment Office bso on 2018-04-01 BSO . MICRO - MicrobiologyPROCEDURE: Normal 04-01-[address] [facility] Culture Beta Strep Only ACCESSION: [facility] ([place]) [phone] [O1 *1]SOURCE: Throat ([id number]) BODY SITE:COLLECTED DATE/TIME: 03/30/2018 10:41 EDT RECEIVED DATE/TIME: 03/30/2018 11:24 EDTSTART DATE/TIME: 03/30/2018 11:24 EDT FREE TEXT SOURCE:FINAL REPORTSFinal Report []Verified Date/Time/Personnel: 04/01/2018 07:05 EDTNo Beta Strep isolated at 48hrs.PRELIMINARY REPORTSPreliminary Report []Verified Date/Time/Personnel: 03/31/2018 07:39 EDTNo beta Strep isolated at 24 hours.Order CommentsO1: Culture Beta Strep Only Order added by [email or web address] Locations*1: This test was performed at: [facility], [address] [place] [address], [address] [place] [address] Comment: Performed By: #### BSO ####[place] [address] patient summary documents on 2018-03-30 Patient Summary Documents Normal [facility] ([place]) ([id number]) [facility] edu on [facility] Normal 03-30-2018 [facility]) ([id number]) [facility] [facility] note on 2018-03-30 [facility] Note Normal 0 03-30-2018 [facility] ([place]) ([id number]) bsa on 2018-03-30 BSA (Body . MICRO - Normal 03-30-2018 [facility] Surface Area) MicrobiologyPROCEDURE: [employer] [facility] ([place]) Strep Antigen with [phone] Cult if Ind [*1]SOURCE: Throat BODY SITE:COLLECTED DATE/TIME: 03/30/2018 10:43 EDT RECEIVED DATE/TIME: 03/30/2018 10:47 EDTSTART DATE/TIME: 03/30/2018 10:47 EDT FREE TEXT SOURCE:FINAL REPORTSFinal Report []Verified Date/Time/Personnel: 03/30/2018 11:24 EDTAntigen Screen: Negative for Group A Strep.Culture confirmation to follow.COMMENT: Recommendations suggest that all negativeresults be confirmed with culture.Performing Locations*1: This test was performed at: [facility], [address] [place] [address], [place], [address] , [facility] Comment: Performed By: #### BSA ####[address] [place] [address] progress on 2018-01 Protein mass conc HNO ID: [id number] Normal [facility] Author: Tiffanie Conner Psr [place] ([id number]) Service: (none) Author Type: (none) Type: Progress Notes Filed: 02/04/2018 4:42 PM Note Text: Pap logged and normal pap letter mailed to patient. Tiffanie wheeler Psr progress on 2018-01 Protein mass HNO ID: [id number]: Helena ferreira 2018 [facility] conc (Title I Teacher) MetcalfService: [place] (none)Author Type: Nurse ([id number]) PractitionerType: Progress NotesFiled: 2018 8:56 AMNote Text:Myrna Carter is a 23 year old who presents for her annualgynecologic exam without complaints.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Menses: cycles every 25-30 days and 5 days of flow.Contraception: Nuva RingHPV vaccine: YesLast Pap: neverLast mammogram: neverSexually active: YesPatient concerns for STD exposure: No.Obstetric History T0 L0 SAB0 TAB0 Ectopic0 Multiple0 Live [id number] MEDICAL HISTORYDiagnosis Date- Anxiety disorder 02/04/2013 (02/25/16): followed by psychiatry- Arthritis (02/25/16): previously seen by ortho- Constipation 02/04/2013- Environmental allergies (02/25/16): seeing ENT- Environmental allergies 02/25/2016- Hydradenitis 2011 Per dermatology- Migraine headache 08/09/2014- Overweight 02/25/2016- PMH - PAST MEDICAL HISTORY OF 01/29/2005 color vision- Polyarthralgia 02/25/2016- PTSD (post-traumatic stress disorder) 02/04/2013 (02/25/16): followed by psychiatry- Severe depression (HCC) (02/25/16): followed by psychiatryPAST SURGICAL HISTORYProcedure Laterality Date- EXTRACTION ERUPTED TOOTH/EXR 03/28/15 all 4 wisdom teethFAMILY HISTORYProblem Relation Age of Onset- Asthma Mother- Asthma Maternal Grandmother- Cancer Maternal Grandmother Uterine- GI Maternal Grandmother reflux- Colon Cancer Maternal Grandfather - spinal stenosis [Other] [OTHER] Maternal Grandmother- sciatic nerve issues [Other] [OTHER] Mother- carpal tunnel [Other] [OTHER] Mother- Spinal Stenosis [Other] [OTHER] Maternal Aunt- Spinal Stenosis [Other] [OTHER] Maternal Uncle- depression [Other] [OTHER] maternal side- Breast Cancer Maternal Grandmother This was great grandmother- Constipation [Other] [OTHER] Father As a younger child- Diabetes Maternal Uncle- Lipids Maternal Uncle- hereditary angioedema [Other] [OTHER] Maternal Aunt- Thyroid MotherSOCIAL HISTORYSocial HistorySubstance Use Topics- Smoking status: Current Every Day Smoker Packs/day: 0.25 Types: Cigarettes- Smokeless tobacco: Never Used- Alcohol use NoREVIEW OF SYSTEMSAbdomen: No abdominal pain, nausea, vomiting, diarrhea, or constipation.No bloating, early satiety, indigestion, or increased flatulence.Bladder: No dysuria, gross hematuria, urinary frequency, urinary urgency,or incontinence.Breast: No breast lumps, nipple d/c, overlying skin changes, redness orskin retraction.Allergies and current medication updated:YesEXAM: There were no vitals taken for this visit.GENERAL: pleasant, female in no apparent distressHEENT: Normocephalic, atraumatic, mucus membranes moist and no lesionsNECK: Supple, full range of motion, no adenopathy and thyroid normalDERMATOLOGY: Normal, without lesions, non-icteric and non-hirsuteBREAST: soft, non-tender, symmetric, no dominant mass, normalnipple-areolar complex, no lymphadenopathy and no nipple dischargeCHEST: Normal inspiratory effortABDOMEN: soft, non-tender and no massesPELVIC: external genitalia normal, normal Bartholin's glands, urethra,[place]'s glands, no vulvar lesions, no cervical lesions, good vaginalsupport, physiologic discharge present, normal appearing perineal body andperianal region, well estrogenizedBIMANUAL: uterus normal size, shape and consistency, no adnexal masses,non-tender and no cervical motion tendernessRECTOVAGINAL: deferred.NEURO: alert and oriented x3,exam grossly non-focalEXTREMITIES: normalASSESSMENT/PLAN:1) Health maintenance:Pap done with reflex HPV.Nutrition, exercise and routine health maintenance exams reviewed.Calcium/Vitamin D supplementation information provided.HPV vaccine: completed series2) Contraception: Nuva Ring. Contraceptive options reviewed andinformation provided.3) STD screening: Accepted STD check for Gonorrhea and Chlamydia. -wants called with results4) Follow up one year or sooner as neededHELENA FRYE CNP gc/chlamydia amplif on 2018 Chlamydia Amplif Positive for Critically 8 [facility] Chlamydia trachomatis abnormal [place] by amplification. (0 0000) Comment: Result Comment: In low preva lence populations, the likelihood of a false positive may be higher than a true positive. Retesting by another method may be appropriate for patients who lack risk factors or clinical signs and symptoms consistent with inf ection. Performed By: #### GCCT #### [facility] [place] [place], [place] [phone]- [phone] GC Amplification Negative for Neisseria Normal 2018 [facility] gonorrhoeae by Martin torrez ([id number]) amplification. Comment: Performed By: #### GCCT #### [facility] [place], [place] [phone]- [phone] GC/Chlam Amp Source Cervix Normal 2018 [facility] ([id number]) Comment: Performed By: #### GCCT #### [facility] [place], [place] [id number]- [phone] cytology on 2018-01 [facility]OLOGY [facility]: [facility] 2018 [place] [id number] Physician: HELENA MANPECIMEN SUBMITT AMBAR: Clinic CERVICAL, SCREENING, FLUID [place] ([id number]) __FINAL DIAGNOSISA. CERVICAL, SCREENING, FLUIDSatisfactory f or interpretation.Negative for intraepithelial lesion or malignancy.Predominance of coccobacilli consistent with shif t in vaginal mehrdad.Acute inflammation.This specimen has been anal yzed by the ThinPrep Imaging System, [employer] Account[employer]ed imaging and revi ew system, which assists the laboratory inevaluating cells on ThinPrep Pap tests. Following automated imaging,selected fie lds from every slide are reviewed by a chin strap cutter.SHELBY Long(ASCP) (Electronic Signature) __CLINICAL DATA ROUTINE EXAM, HPV Testing: Yes, Reflex HPV f or ASCUSDate of Last Menstrual Period:01/20/2018STAINSA: CERVICA L, SCREENING, FLUID THIN PREP GYNJennifer Nidhi Newsome, Labor [facility] centery DirectorPatient ID #: [id number] of Report: 02/04/2018Date of Procedure: 2018Date of Receipt: 01/27/2018Submitted by: JAYDEN POTTER METCALFLocation: WOREFDiagnostic interpretation performed at [facility], [address] [place], [place] [id number].The Pap Smear is a screening test for cervical cancer. False negativeresults occur with all screening tests, emphasizing the need forrescreening at recommended intervals, and clinical correlation. cnov on 2018 CNOV Office Visit Normal 2018 Michael and (RAFAEL) ------MYRNA CARTER [facility] ([id number]) 1995 FDat e Time Provider Department01/26/18 8:00 AM HELENA FRYE) ARFAEL Terrazas During your visit today, we recorded the following information about you: Blood pressure Weight (48545) Height Last Period 112/64 92 .1 kg 1.66 m 01/20/18HELENA FRYE CNP 2018 8:56 AM KristenMryna Carter is a 23 year old G0P 0000 who presents for her annualgynecologic exam without complaints.Works with [employer]. Not currently in a relationship.Menses: cycles every 25-30 days and 5 days of flow.Cont raception: Nuva RingHPV vaccine: YesLast Pap: neverLast mammogram: neverSexually active: YesPat ient concerns for STD exposure: No.Obstetric History T0 L0 SAB0 TAB0 Ectopic0 Multiple0 Live [id number] MEDICAL HISTORYDiagnosis Date- Anxiety disorder 02/04/2013 (02/25/16): followed by psychiatry- Arthritis (02/25/16): previously seen by ortho- Constipation 02/04/2013- Envi ronmental allergies (02/25/16): seeing ENT- Environmental allergies 02/25/2016- Hydradenitis 2011 Per dermatology- Migraine headache 08/09/2014- Overweight 02/25/2016- PMH - PAST MEDICAL HISTORY OF 2004 color vision- Polyarthralgia 02/25/2016- PTSD (post-traumatic stress disorder) 02/04/2013 (02/25/16) : followed by psychiatry- Severe depression (HCC) (02/25/16): followed by psychiatryPAST SURGICAL HIST ORYProcedure Laterality Date- EXTRACTION ERUPTED TOOTH/EXR 03/28/15 all 4 wisdom teethFAMILY HISTORYPr oblem Relation Age of Onset- Asthma Mother- Asthma Maternal Grandmother- Cancer Maternal Grandmother Uterine- GI Maternal Grandmother reflux- Colon Cancer Maternal Grandfather - spinal stenosis [Other] [OTHER] Maternal Grandmother- sciatic nerve issues [Other] [OTHER] Mother- carp al tunnel [Other] [OTHER] Mother- Spinal Stenosis [Other] [OTHER] Maternal Aunt- Spinal Stenos is [Other] [OTHER] Maternal Uncle- depression [Other] [OTHER] maternal side- Breast Cancer Maternal Grandmother This was great grandmother- Constipation [Other] [OTHER] Father As a younger child- D iabetes Maternal Uncle- Lipids Maternal Uncle- hereditary angioedema [Other] [OTHER] Maternal Aun t- Thyroid MotherSOCIAL HISTORYSocial HistorySubstance Use Topics- Smoking status: Current Ever y Day Smoker Packs/day: 0.25 Types: Cigarettes- Smokeless tobacco: Never Used- Alcohol use NoREVIEW O F SYSTEMSAbdomen: No abdominal pain, nausea, vomiting, diarrhea, or constipation. Nobloating, ea rly satiety, indigestion, or increased flatulence.Bladder: No dysuria, gross hematuria, urinary rosendo quency, urinary urgency, orincontinence.Breast: No breast lumps, nipple d/c, overlying skin changes, redness or skinretraction.Allergies and current medication updated:YesEXAM: There were no vitals taken for this visit.GENERAL: pleasant, female in no apparent distressHEENT: Norm ocephalic, atraumatic, mucus membranes moist and no lesionsNECK: Supple, full range of motion, no oscar nopathy and thyroid normalDERMATOLOGY: Normal, without lesions, non-icteric and non-hirsuteB REAST: soft, non-tender, symmetric, no dominant mass, normal nipple-areolarcomplex, no ly mphadenopathy and no nipple dischargeCHEST: Normal inspiratory effortABDOMEN: soft, non-ten andressa and no massesPELVIC: external genitalia normal, normal Bartholin's glands, urethra, [place]'sglan ds, no vulvar lesions, no cervical lesions, good vaginal support,physiologic discharg e present, normal appearing perineal body and perianalregion, well estrogenizedBIMANUAL: uterus normal size, shape and consistency, no adnexal masses,non-tender and no cervical motion tendernessRE CTOVAGINAL: deferred.NEURO: alert and oriented x3,exam grossly non-focalEXTREMITIES: normal ASSESSMENT/PLAN:1) Health maintenance:Pap done with reflex HPV.Nutrition, exercise and routine health maintenance exams reviewed.Calcium/Vitamin D supplementation information provided.HPV vaccine: completed series2) Contraception: Nuva Ring. Contraceptive options review ed and informationprovided.3) STD screening: Accepted STD check for Gonorrhea and Chlamydia. - w antscalled with results4) Follow up one year or sooner as neededGino PEACOCK Psr 02/04/2018 4:42 PM SignedPap logged and normal pap letter mailed to patient. Tiffanie Conner PsrRef erring Provider: SELF [200]Allergies As of Date: 2018 Noted Allergy Reactionenvironmenta l [Other] 08/28/2008 5 - Intolerance Comments: Sneezing, itchy,watery eyes. flea/ bug bitesTRAMADO L 12/04/2017 14 - Other: See Comments Comments: Elevated anxiety levelDate Reviewed: 01/27/20 18Reviewed by: Helena Frye - Fully AssessedPrimary Visit Diagnosis:Encounter for gyne cological examination (general) (routine) without abnormal findings [Z01.419] Other Visit Diagno ses:Screening for cervical cancer [Z12.4] Encounter for screening for human papillomavirus (HPV) [ Z11.51] Screen for STD (sexually transmitted disease) [Z11.3] Encounter for surveillance of vaginal ring hormonal contraceptive device [Z30.44]Order(s):PAP FLUID CERVICAL SCREENING [5344062] Order #: [id number]. #:[id number] GC/CHLAMYDIA DNA DET [SQGCCA MP] Order #: [id number]. #:[id number] Etonogestrel-Ethinyl Estradi ol (NUVARING) 0.12-0.015 mg/24 hr vaginal ringUse 1 Each vaginally as directed. Insert vaginally a nd leave in place for 3 consecutive weeks, then remove for 1 week.Disp: 3 EachRfl: 3Prescriptions as of 2018 Sig: ETONOGESTREL-ETHINYL ESTRADIO* Use 1 Each vaginally as direc* DIPHENHYDRAMINE 25 MG CAPSULE Take 1 capsule by mouth at be* PSEUDOEPHEDRINE 60 MG TABLET Take 1 tablet by mouth every * DEXTROAMPHETAMINE-AMPHETAMINE* Take 10 mg by mouth once flip* CLONAZEPAM 0.5 MG TABLET Munir e 0.5 mg by mouth twice da*Problem List As Of Date 2018 Noted Resolved Depression with anx iety [F41.8] INVALID FOR* Anxiety disorder [F41.9] INVALID FOR* PTSD (post-traumatic stress disor andressa) [F43.10] INVALID FOR* Constipation [K59.00] INVALID FOR* Migraine headache [G43.909] INVALID F OR* Polyarthralgia [M25.50] INVALID FOR* Environmental allergies [Z91.09] INVALID FOR* Overwe ight [E66.3] INVALID FOR*Prescriptions ordered this encounter Disp Refills Start End ETONOGESTR EL-ETHINYL ESTRADIOL 0.12 * 3 Ea* 3 2018 Route: VAGINAL Sig: Use 1 Each vaginally as directed. Insert vaginally and leave in place for 3 consecutive weeks, then remove for 1 week.Medications Disco ntinued During This Encounter omeprazole (PRILOSEC) 20 mg capsule 30 c* 0 12/04/2017 2018 Route: ORAL Sig: Take 1 capsule by mouth daily before breakfast. 1/2 hr before meal. Patient not taking: Re ported on 2018 Disc: Reason for discontinue is not on file. ondansetron (ZOFRAN, HYDR OCHLORID* 15 t* 0 04/28/2017 2018 Route: ORAL Sig: Take 1 tablet by mouth every 8 hours as neede d. Patient not taking: Reported on 2018 Disc: Reason for discontinue is not on file.Disposition: Return in 1 year (on 2019) for Annual Exam.Follow-up and Disposition History RecordedLetter TextR kristen Frye, [facility] [place], [place] [address]Thwcs: [phone] Gerardo Xecnlal1279 [facility] [facility] [id number]: [id number] Jenna,We are pl eased to inform you that your recent Pap Test was within normallimits.Because Pap saida ts are so effective in the early detection of cervical cancer,you are encouraged to continue havin g the test at regular intervals.You will be due for a 1 year Gynecological Exam after thi s date 2019.If you have any questions regarding the above information, do not hesitate tocall our office at between the hours of 8:00 a.m. and 5:00p.m.Sincerely,Helena Mensah JAYLON aguirreEncounter Number: [id number] Status:Closed by HELENA FRYE on 01/26/18 progress on 2017-11 Protein mass HNO ID: [id number]: Kimberly (Jaylon) Normal 12-04-2017 [facility] FulkService: (none)Author Type: Nurse Clinic PractitionerType: Progress NotesFiled: [place] 12/04/2017 9:54 AMNote Text:The history (08537) is provided by the patient. No speech language pathologist was used.HPI Myrna Carter is a 22 year old female who presents today for CC ofpain in upper mid quadrant. This started Thursday, vomited later in theday and felt better, but came back today and feels worse. She deniesfever, body aches, diarrhea, or chills. Symptoms are worsened by lyingdown. She has tried OTC antacid, without relief Risk factors none known. PMH no abdominal surgeriesBP 104/74 Pulse 68 Temp 36.8 ?C (98.2 ?F) (Tympanic) Resp 18 Wt90.1 kg (198 lb 9.6 oz) BMI 32.55 kg/v2GNEBWMEWKRzapilcs Reactions- Environmental [Othe* Intolerance Sneezing, itchy,watery eyes. flea/ bug bites- Tramadol Other: See Comments Elevated anxiety levelACTIVE PROBLEM LISTDepression With AnxietyAnxiety DisorderPtsd (Post-Traumatic Stress Disorder)ConstipationMigraine HeadachePolyarthralgiaEnvironmental AllergiesOverweightFamily HistoryProblem Relation Age of Onset- Asthma Mother- Asthma Maternal Grandmother- Cancer Maternal Grandmother Uterine- GI Maternal Grandmother reflux- Colon Cancer Maternal Grandfather - spinal stenosis [Other] [OTHER] Maternal Grandmother- sciatic nerve issues [Other] [OTHER] Mother- carpal tunnel [Other] [OTHER] Mother- Spinal Stenosis [Other] [OTHER] Maternal Aunt- Spinal Stenosis [Other] [OTHER] Maternal Uncle- depression [Other] [OTHER] maternal side- Breast Cancer Maternal Grandmother This was great grandmother- Constipation [Other] [OTHER] Father As a younger child- Diabetes Maternal Uncle- Lipids Maternal Uncle- hereditary angioedema [Other] [OTHER] Maternal Aunt- Thyroid MotherSocial History Marital status: Single Spouse name: Years of education: Number of children: 0Occupational HistoryOccupation Employer CommentStudentSTUDENTSocial History Main Topics Smoking status: Current Every Day Smoker Packs/day: 0.25 Years: 0.00 Types: Cigarettes Smokeless status: Never Used Alcohol use: No Drug use: No Sexual activity: Yes Partners with: Male control/protection: Inserts Comment: one time episode without protection 08/2010Review of SystemsConstitutional: Negative for chills, fever and malaise/fatigue.Gastrointestinal: Positive for abdominal pain. Negative for constipation,diarrhea and vomiting.Genitourinary: Negative for dysuria, flank pain, frequency, hematuria andurgency.Skin: Negative for rash.Neurological: Negative for headaches.Physical ExamConstitutional: She is oriented to person, place, and time andwell-developed, well-nourished, and in no distress.HENT:Head: Normocephalic and atraumatic.Eyes: Conjunctivae and EOM are normal. Pupils are equal, round, andreactive to light.Neck: Normal range of motion. Neck supple.Pulmonary/Chest: Effort normal.Abdominal: Soft. Normal appearance and bowel sounds are normal. Sheexhibits no abdominal bruit and no pulsatile midline mass. There is nohepatosplenomegaly. There is tenderness in the epigastric area. There isno rigidity, no rebound, no guarding, no CVA tenderness, no tenderness atMcBurney's point and negative Ortiz's sign.There is not pain out of proportion to abdominal exam, no pulsatile massor abdominal bruit noted. No bilious vomiting or high pitched bowelsounds.Neurological: She is alert and oriented to person, place, and time.Skin: Skin is warm.Psychiatric: Affect normal.Nursing note and vitals reviewed.ASSESSMENT/PLAN:1. Epigastric pain - ICD9: 789.06, ICD10: R10.13- Begin treatment with Pepcid 20 mg BID- Labs of CBC with Diff, CMP and Lipase- Referral to Gastroenterology- Follow up in 1 weeks or sooner if worsening of symptoms- To ER for worsening symptoms, increased pain, fevers, vomiting,decreased urine output, blood in her urine blood in her stools or darktarry stools.- LIPASE BLD- COMP METABOLIC PANEL- CBC + DIFF- FAMOTIDINE 20 MG TABLETDiagnosis and treatment plan were discussed and questions were answered tothe patient's satisfaction. Pt acknowledged understanding of concepts andfollow up plan.Specific signs and symptoms that would indicate the need for higher levelof care were discussed in detail warranting prompt ER evaluation.Kimberly Keys, CYBER LEGAL ADVISOR lipase on 2017-11-23 2 Lipase enzyme act/vol 29 16-61 U/L Normal 12-04-19 18 [facility] ([id number]) Comment: Performed By: #### CBCDIF, C MP, LIPA ####[address] [place] [address] [phone] comp metabolic panel on 2017-12-04 Albumin mass conc 4.2 3.9-4.9 g/dL Normal 12-04-2017 [facility] (27543) Comment: Performed By: #### CBCMARCELOF C MP, LIPA ####[facility] [place] [address] [phone] ALP enzyme act/vol 72 32-117 U/L Normal 12-04-2017 [facility] (40825) Comment: Performed By: #### CBCDIF, C MP, LIPA ####[facility] [address] [place] [address] [phone] ALT enzyme act/vol 10 7-38 U/L Normal 12-04-2017 [facility] (26621) Comment: Performed By: #### CBCDIF, C MP, LIPA ####[facility] [place] [address] [phone] Anion gap 3 molar conc 15 9-18 mmol/L Normal 018 [facility] (55167) Comment: Performed By: #### CBCDIF, C MP, LIPA ####[place] [address] [place] [address] [phone] AST enzyme act/vol 14 13-35 U/L Normal 12-04-2017 [facility] (03594) Comment: Performed By: #### CBCDIF, C MP, LIPA ####[place] [address] [address] Bilirubin mass conc 0.8 0.2-1.3 mg/dL Normal 12-04-2017 [facility] (45597) Comment: Performed By: #### CBCDIF, C MP, LIPA ####[place] [address] [address] [place] [address] Calcium mass conc 9.1 8.5-10.2 mg/dL Normal 12-04-2017 [facility] (74749) Comment: Performed By: #### CBCDIF, C MP, LIPA ####[place] [address] [address] [place] [address] Chloride molar conc 101 97-105 mmol/L Normal 12-04-2017 [facility] (33145) Comment: Performed By: #### CBCDIF, C MP, LIPA ####[place] [address] [address] CO2 molar conc 26 22-30 mmol/L Normal 12-04-[address] [facility] (68816) Comment: Performed By: #### CBCDIF, C MP, LIPA ####[place] [address] [place] [address] [phone] Creatinine mass conc 0.74 0.58-0.96 mg/dL Normal 8 [facility] (64379) Comment: Performed By: #### CBCDIF, C MP, LIPA ####[place] [address] [address] eGFR- Amer. >60 Normal 12-04-2017 [facility] (55654) Comment: Performed By: #### Yogi REEVES MP, LIPA ####[facility] [address] [place] [address] [phone] GFR/1.73 sq M predicted >60 mL/min/{1.73_m2} Normal 12-04-2017 [facility] among non-blacks MDRD [place] (56085) vol rate/area (S/P/Bld) Comment: Result Comment: eGFR (Estima elie GFR) Units of measure: mL/min/1.73 meters squaredeGFR is derived from the reexpressed MDRD Study equation using the following parameters: serum creatinine, age, gender and race. The creatinine assay has been calibrated to be traceable to IDMS.An eGFR <60 mL/min/1.73m2 for >3 months is consistent with chronic kidney disease. Refer to KDOQI guidelines for clinical inte rpretation.In patients with unstable renal function, e.g. those with ac [place] kidney injury, the eGFR may not accurately reflect actual GFR. Performed By: #### Yogi REEVES MP, LIPA ####[facility] [address] [place] [address] [phone] Glucose mass conc 83 74-99 mg/dL Normal 12-04-2017 [facility] (73004) Comment: Result Comment: The [place] Diabetes Association (ADA) provides guidance for cutoff values for fastin g glucose and random glucose. The ADA defines fasting as no caloric intake for at least 8 hours. Fasting plasma glucose results between 100 to 125 m g/dL indicate increased risk for diabetes (prediabetes).Fasting plasma glucose results greater than or equal to 126 mg/dL meet the criteria for diagnosis of diabetes. In the absence of unequivocal hyperglycemia, r esults should be confirmed by repeat testing. In a patient with classic sympt oms of hyperglycemia or hyperglycemic crisis, random plasma glucose result s greater than or equal to 200 mg/dL meet the criteria for diagnosis of di abetes.Reference: Standards of Medical Care in Diabetes 2016, [place] Diab etes Association. Diabetes Care. 2016.39(Suppl 1). Performed By: #### CBCDIF, C MP, LIPA ####[facility] [address] [place] [address] [phone] Potassium molar conc 4.1 3.7-5.1 mmol/L Normal 8 [facility] (94505) Comment: Performed By: #### CBCDIF C MP, LIPA ####[place] [address] [place] [address] [phone] Protein mass conc 7.5 6.3-8.0 g/dL Normal 12-04-2017 [facility] (04289) Comment: Performed By: #### CBCDIF C MP, LIPA ####[place] [address] [place] [address] [phone] Sodium molar conc 142 136-144 mmol/L Normal 12-04-2017 [facility] (05929) Comment: Performed By: #### CBCMARCELOF C MP, LIPA ####[address] [place] [address] [phone] Urea nitrogen mass conc 7 7-21 mg/dL Normal 2017 [facility] (77357) Comment: Performed By: #### CBCRICHARD C MP, LIPA ####[facility] [place] [address] [phone] cnov on 2017-12-04 CNOV Office Visit Normal 12-04-2017 Michael and (UCWSTR) --------MYRNA CARTER ([id number]) 1995 FDat e Time Provider Department12/04/17 9:15 AM KIMBERLY KEYS) [facility] During Cl isa your visit today, we recorde d the following information about you: Temperature Pulse Respiration Blood (000 00) pressure 98.2 degrees 68/min [place] 18/minute 104/74 Weight 90.1 kgKimberly Keys CNP 12/04/2017 9:54 AM SignedThe history is provide d by the patient. No speech language pathologist was used.HPI Myrna Carter is a 22 year old female who pre sents today for CC of painin upper mid quadrant. This started Thursday, vomited later in the day and felt better, but came back today and feels worse. She denies fever, bodyaches, diarrhea, or chil ls. Symptoms are worsened by lying down. She hastried OTC antacid, without relief Risk factors none kno wn. PMH no abdominalsurgeriesBP 104/74 Pulse 68 Temp 36.8 ?C (98.2 ?F) (Tympanic) Resp 18 Wt 90 .1 kg(198 lb 9.6 oz) BMI 32.55 kg/z9CCGWEHTZFAsjnuyww Reactions- Environmental [Othe* Intoler ance Sneezing, itchy,watery eyes. flea/ bug bites- Tramadol Other: See Comments Elevated anxiety le velACTIVE PROBLEM LISTDepression With AnxietyAnxiety DisorderPtsd (Post-Traumatic Stress Disor andressa)ConstipationMigraine HeadachePolyarthralgiaEnvironmental AllergiesOverweightFamily Hi storyProblem Relation Age of Onset- Asthma Mother- Asthma Maternal Grandmother- Cancer Maternal Grandmother Uterine- GI Maternal Grandmother reflux- Colon Cancer Maternal Grandfather d- spinal stenosis [Other] [OTHER] Maternal Grandmother- sciatic nerve issues [Other] [OTHER] Mothe r- carpal tunnel [Other] [OTHER] Mother- Spinal Stenosis [Other] [OTHER] Maternal Aunt- Spinal Stenos is [Other] [OTHER] Maternal Uncle- depression [Other] [OTHER] maternal side- Breast Cancer Maternal Grandmother This was great grandmother- Constipation [Other] [OTHER] Father As a younger child- D iabetes Maternal Uncle- Lipids Maternal Uncle- hereditary angioedema [Other] [OTHER] Maternal Aun t- Thyroid MotherSocial History Marital status: Single Spouse name: Years of education: Number of chil dren: 0Occupational HistoryOccupation Employer CommentStudentSTUDENTSocial History Main Topics Smoking status: Current Every Day Smoker Packs/day: 0.25 Years: 0.00 Types: Cigarettes Smokeless status: Never Used Alcohol use: No Drug use: No Sexual activity: Yes Partners with: Male control/pro tection: Inserts Comment: one time episode without protection 08/2010Review of SystemsConstitutional: Negative for chills, fever and malaise/fatigue.Gastrointest inal: Positive for abdominal pain. Negative for constipation,diarrhea and vomiting.Genitourinary: Nega tive for dysuria, flank pain, frequency, hematuria andurgency.Skin: Negative for rash.Neurologic al: Negative for headaches.Physical ExamConstitutional: She is oriented to person, place, and time and well-developed,well-nourished, and in no distress.HENT:Head: Normocephalic and atraumatic.Eyes: Conjunc tivae and EOM are normal. Pupils are equal, round, and reactive tolight.Neck: Normal range o f motion. Neck supple.Pulmonary/Chest: Effort normal.Abdominal: Soft. Normal appearance and bowel sounds are normal. She exhibits noabdominal bruit and no pulsatile midline mass. There is no hepatosple nomegaly.There is tenderness in the epigastric area. There is no rigidity, no rebound,no guarding, no C VA tenderness, no tenderness at McBurney's point and negativeMurphy's sign.There is not pain out o f proportion to abdominal exam, no pulsatile mass orabdominal bruit noted. No bilious vomiting or high pitched bowel sounds.Neurological: She is alert and oriented to person, place, and time.Skin: Skin i s warm.Psychiatric: Affect normal.Nursing note and vitals reviewed.ASSESSMENT/PLAN:1. Epigastric pain - ICD9: 789.06, ICD10: R10.13- Begin treatment with Pepcid 20 mg BID- Labs of CBC with Diff, CMP and Lipase- Referral to Gastroenterology- Follow up in 1 weeks or sooner if worsening of sy mptoms- To ER for worsening symptoms, increased pain, fevers, vomiting, decreasedurine output, blood in her urine blood in her stools or dark tarry stools.- LIPASE BLD- COMP METABOLIC PANEL- CBC + DIFF- FAMOTIDINE 20 MG TABLETDiagnosis and treatment plan were discussed and questions were answered to t hepatient's satisfaction. Pt acknowledged understanding of concepts and follow upplan.Specific signs and symptoms that would indicate the need for higher level ofcare were discussed in detail warranti ng prompt ER evaluation.Nic Ham CNP 12/04/2017 9:49 AM AddendumASSESSMENT/PLAN:1. E pigastric pain - ICD9: 789.06, ICD10: R10.13- Begin treatment with Pepcid 20 mg BID- Labs of CBC with Diff, CMP and Lipase- Referral to Gastroenterology- Follow up in 1 weeks or sooner if worsening of sy mptoms- To ER for worsening symptoms, increased pain, fevers, vomiting, decreasedurine output, blood in her urine blood in her stools or dark tarry stools.- LIPASE BLD- COMP METABOLIC PANEL- CBC + DIFF- FAMOTIDINE 20 MG TABLETReferring Provider: SELF [200]Allergies As of Date: 12/04/2017 Noted Aller gy Reactionenvironmental [Other] 08/28/2008 5 - Intolerance Comments: Sneezing, itchy,watery eyes. flea/ bug bitesTRAMADOL 12/04/2017 14 - Other: See Comments Comments: Elevated anxiety levelDate R eviewed: 12/04/2017Reviewed by: Kimberly (Title I Teacher) Shazia - Fully AssessedReason for Visit: vomiting, stomach pain and heartburn [Other] Cmt: x 2-3 daysPrimary Visit Diagnosis:Epigastric pain [R 10.13]Order(s):LIPASE BLD [SQLIPA] Order #: [id number] FUTURE COMP METABOLIC PANEL [SQCMP] Orde r #: [id number] FUTURE CBC + DIFF [SQCBCDIF] Order #: [id number] FUTURE famotidine (PEPCID) 20 mg ta bletTake 1 tablet by mouth at bedtime as needed.Disp: 60 tabletRfl: 0 CONSULT TO GASTROENTEROLOGY [9010] Order #: [id number]: 1Prescriptions as of 12/04/2017 Sig: ONDANSETRON HCL 4 MG TABLET Take 1 tablet by mouth every * DIPHENHYDRAMINE 25 MG CAPSULE Take 1 capsule by mouth at be* PSEU DOEPHEDRINE 60 MG TABLET Take 1 tablet by mouth every * DEXTROAMPHETAMINE-AMPHETAMIN E* Take 10 mg by mouth once flip* CLONAZEPAM 0.5 MG TABLET Take 0.5 mg by mouth twice da* FAMOTIDINE 2 0 MG TABLET Take 1 tablet by mouth at bed*Medication notes this encounter ETONOGESTREL-ETHINYL ESTRADI OL 0.12 MG -0.015 MG/24 HR VAGINAL RING >> Ira Jacintoon BEEF PLUCK TRIMMER 12/04/2017 9:17 AM >> IRA JIM BEEF PLUCK TRIMMER ThuDec 04, 2017 9:17 AM Not Using LAMOTRIGINE 100 MG TABLET >> Ira Besrosson BEEF PLUCK TRIMMER 12/04/2017 9:17 AM >> IRA JIM LPN ThuDec 04, 2017 9:17 AM Not TakingProblem List As Of Date 12/04/2017 Noted Resolved Depression with anxiety [F41.8] INVALID FOR* Anxiety disorder [F41.9] INVALID FOR* PTSD (p ost-traumatic stress disorder) [F43.10] INVALID FOR* Constipation [K59.00] INVALID FOR* Migraine headac he [G43.909] INVALID FOR* Polyarthralgia [M25.50] INVALID FOR* Environmental allergies [Z91 .09] INVALID FOR* Overweight [E66.3] INVALID FOR* Other instructions from your clinician: ASSESSMENT/P GLORIA: 1. Epigastric pain - ICD9: 789.06, ICD10: R10.13 - Begin treatment with Pepcid 20 mg BID - Labs of CBC with Diff, CMP and Lipase - Referral to Gastroenterology - Follow up in 1 weeks or sooner if w orsening of symptoms - To ER for worsening symptoms, increased pain, fevers, vomiting, decreased urine output, blood in her urine blood in her stools or dark tarry stools. - LIPASE BLD - COMP METABOLI C PANEL - CBC + DIFF - FAMOTIDINE 20 MG TABLETPrescriptions ordered this encounter Disp Refills Start End FAMOTIDINE 20 MG TABLET 60 t* 0 12/04/2017 01/03/2018 Class: Print RX Route: ORAL Sig: Take 1 tabl et by mouth at bedtime as needed.Medications Discontinued During This Encounter Etonogestrel-Ethin yl Estradiol (NUVA* 1 Ea* 2 05/13/2017 12/04/2017 Sig: INSERT ONE(1) RING VAGINALLY AND LEAVE IN PLACE FOR THREE WEEKS, THEN REMOVE FOR 1 WEEK. Disc: Changing Therapy/Dosage Form lamoTRIgine (LAMICTAL) 100 mg tablet 0 01/14/2017 12/04/2017 Class: Med Update Route: ORAL Sig: Take 1 tablet by mouth once daily. Disc: Discontinued by another Health Care Provider Cosign accepted by Gerardo MENDOZA PA-C[[id number]] on 01/14/2017 2:21 PM ASPIRIN/ACETAMINOPHEN/CAFFEINE (EXCE* 12/04/2017 Class: Historical Med Route: ORAL Sig: Take by mouth as needed. Disc: Discontinued by another Health Care Provider doxycycline monohydrate 100 mg tablet 20 t* 0 01/14/2017 12/04/2017 Route: ORAL Sig: Take 1 tablet by m out twice daily. Disc: Course of therapy completed buPROPion XL (WELLBUTRIN XL) 150 mg * 11/23 Class: Historical Med Route: ORAL Sig: Take 150 mg by mouth once daily. Disc: Discontinued by another Health Care ProviderEncounter Number: [id number] Status:Closed by KIMBERLY KEYS CNP on 12/04/17 cbc and differential on 2017-12-04 Abs Baso 0.08 <0.11 k/uL Normal 12-04-2017 [facility] (55020) Comment: Performed By: #### CBCDIF, C MP, LIPA ####[facility] [address] [place] [address] [phone] Abs Towns 0.97 <0.87 k/uL High 12-04-2017 [facility] (53652) Comment: Performed By: #### CBCDIF, C MP, LIPA ####[facility] [address] [place] [address] [phone] Abs Neut 7.95 1.45-7.50 k/uL High 12-04-2017 [facility] (64156) Comment: Performed By: #### CBCDIF, C MP, LIPA ####[facility] [address] [place] [address] [phone] Absolute nRBC <0.01 <0.01 Normal 12-04-2017 [facility] (79801) Comment: Performed By: #### CBCDIF, C MP, LIPA ####[facility] [address] [phone] Basophils/100 WBC Auto (Bld) 0.7 % Normal 0 12-04-2017 [facility] (10153) Comment: Performed By: #### CBCDIF, C MP, LIPA ####[facility] [address] [address] [phone] DTYPE Auto Diff Normal 12-04-2017 [facility] (43048) Comment: Performed By: #### CBCDIF, C MP, LIPA ####[address] [place] [address] [phone] Eosinophils Auto #/vol 0.38 <0.46 k/uL Normal [address] [place] [address] (d) [place] ([address]41) Comment: Performed By: #### CBCDIF, C MP, LIPA ####[place] [address] [place] [address] [phone] Eosinophils/100 WBC Auto (Bld) 3.1 % Normal 12-04-2017 [facility] (75531) Comment: Performed By: #### CBCDIF, C MP, LIPA ####[place] [address] [address] [phone] Erythrocyte distribution 13.0 11.5-15.0 % Normal 12-04 [facility] width Auto Ratio (RBC) [place] (19287) Comment: Performed By: #### CBCDIF, C MP, LIPA ####[facility] [address] [phone] Hematocrit Auto Volume 46.7 36.0-46.0 % High [facility] (78573) Comment: Performed By: #### CBCDIF, C MP, LIPA ####[place] [address] [address] [place] [address] [phone] Hemoglobin mass conc 15.4 11.5-15.5 g/dL Normal 8 [facility] ([facility] (88437) Comment: Performed By: #### CBCDIF, C MP, LIPA ####[address] [place] [address] [phone] Lymphocytes Auto #/vol 2.90 1.00-4.00 k/uL Normal 018 [facility] ([facility] (96036) Comment: Performed By: #### CBCDIF, C MP, LIPA ####[place] [address] [phone] Lymphocytes/100 WBC Auto ([facility]) 23.6 % Normal 12-04-2017 [facility] (71451) Comment: Performed By: #### CBCDIF, C MP, LIPA ####[address] [place] [address] [phone] MCH Auto Entitic mass 28.6 26.0-34.0 pG Normal 12-04-19 18 [facility] ([facility] (55682) Comment: Performed By: #### CBCDIF, C MP, LIPA ####[address] [place] [address] [phone] MCHC Auto mass conc 33.0 30.5-36.0 g/dL Normal 12-04-2017 [facility] (RBC) [place] (29437) Comment: Performed By: #### CBCDIF, C MP, LIPA ####[address] [place] [address] [phone] MCV Auto Entitic volume 86.6 80.0-100.0 fL Normal 12-04 [facility] (RBC) [place] ([address]121) Comment: Performed By: #### CBCDIF, C MP, LIPA ####[address] [place] [address] [phone] Monocytes/100 WBC Auto (Bld) 7.9 % Normal 0 12-04-2017 [facility] (92026) Comment: Performed By: #### CBCDIF, C MP, LIPA ####[place] [address] [place] [address] [phone] Neutrophils/100 WBC Auto (Bld) 64.7 % Normal 12-04-2017 [facility] (49687) Comment: Performed By: #### CBCDIF, C MP, LIPA ####[place] [address] [address] [place] [address] [phone] NRBCs 0.0 0 /100 WBC Normal 12-04-2017 [facility] (38488) Comment: Performed By: #### CBCDIF, C MP, LIPA ####[address] [place] [address] [phone] Platelet mean volume Auto 9.1 9.0-12.7 fL Normal 11-23 [facility] Entitic volume (Bld) (09702) Comment: Performed By: #### CBCDIF, C MP, LIPA ####[address] [place] [address] [phone] Platelets Auto #/vol 274 150-400 k/uL Normal 8 [facility] ([facility]) [place] (45733) Comment: Performed By: #### CBCDIF, C MP, LIPA ####[place] [address] [place] [address] [phone] RBC Auto #/vol (Bld) 5.39 3.90-5.20 m/uL High 8 [facility] (04364) Comment: Performed By: #### CBCDIF, C MP, LIPA ####[place] [address]level[address] [place] [address] WBC Auto #/vol (Bld) 12.28 3.70-11.00 k/uL High 12-04-19 18 [facility] [facility] ([id number]) Comment: Performed By: #### Yogi REEVES MP, LIPA ####[facility] [address] [id number] [phone] Encounters Date Type Reason Provider Location 11-14-2018 Emergency department Other chest ZOILA CHAVEZ [facility] patient visit pain UNKNOWN PROVIDER System (00 [phone]) Arianne Quinn 06-20-2018 - Emergency department KENYON AUSTIN Facili ty:B 06-20-2018 patient visit SAMM BALES 04-25-2018 - Emergency department STEPHANIE GILL Facil ity:B 04-26-2018 patient visit SAMM BALES 03-30-2018 - Emergency department HERBERTH PICKETT Facilit y:B 03-30-2018 patient visit SAMM BALES 11-17-2018 - Patient encounter [facility] 11-18-2018 procedure [place] (0000 0) 09-09-2018 - Patient encounter KAYCE OLIVER [facility] 09-09-2018 procedure [place] (0000 0) 2018 - Patient encounter HELENA (CYBER LEGAL ADVISOR) [facility] 02-01-2018 procedure YOHAN [place] (0000 0) 12-04-2017 - Patient [facility]IMBERLY [facility]CYBER LEGAL ADVISOR[facility] [place] (0000 0) Payers Payer Name Policy Number Location [facility] ([id number]) [employer] [id number] [facility] ([place]) ([id number]) [facility] [id number] [facility] ([place]) ([id number]) [id number] Formerly [facility] ([id number]) The following information is from the original human readable contentNo Payer Records Found Summary Purpose Family History No Family History Records FoundNo Family History Records FoundNo Family History Records Found Advance Directives No Advanced Directives Records FoundNo Advanced Directives Records FoundNo Advanced Directives Records Found Additional Source Comments FOR RECORDS PERTAINING TO PATIENTS WHO ARE OR HAVE BEEN ENROLLED IN A CHEMICAL DEPENDENCY/SUBSTANCE ABUSE PROGRAM, SOME INFORMATION MAY BE OMITTED. This clinical summary was aggregated from multiple sources. Caution should be exercised in using it in the provision of clinical care. This summary normalizes information from multiple sources, and as a consequence, information in this document may materially changethe coding, format and clinical context of patient data. In addition, data may be omittedin some cases. CLINICAL DECISIONS SHOULD BE BASED ON THE PRIMARY CLINICAL RECORDS. [facility] provides no warranty or guarantee of the accuracy or completeness of information in this document. UNRECOGNIZED CONTENT PROVIDED BELOW FOR UNRECOGNIZED SECTION INFORMATION SOURCE DATE CREATED AUTHOR AUTHOR'S ORGANIZATIO N 06/20/2018 [facility] DATE CREATED AUTHOR AUTHOR'S ORGANIZATIO N 11/19/2018 [facility] DATE CREATED AUTHOR AUTHOR'S ORGANIZATIO N 11/22/2018 [facility]
== END ==
PROVIDERS: Family Provider Family Medicine; PCP Family Medicine; Referring Provider Obstetrics & Gynecology; Visit Provider Obstetrics & Gynecology
DX: N93.9 Abnormal uterine and vaginal bleeding, unspecified (principal)

== ENCOUNTER 2019-05-24 18:43 | Emergency (ER) | payer MEDICAID, SELFPAY ==
[2019-05-24 18:44] VITALS: BP 116/72; PULSE 100; RESP 15; TEMP 36.8; O2SAT 96; BMI 36.0
--- NOTE | 2019-05-24 19:22 | ED.VISSUMM ---
- ER Visit Summary Date of Service: 05/24/19 Chief Complaint: Feels dehydrated History of Present Illness: The patient is a 24 F presenting stating that she feels dehydrated. She states she works in a hot environment. 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 She states she is on her feet all day. She states they keep the temperature around 75 to 80 degrees. She states she tries to drink water throughout the day. She states she has had these symptoms in the past with dehydration. She complains of mild dizziness with no syncope. She has a mild headache. She states this is not the worst headache of her life. She denies vomiting or diarrhea. She states she had nausea yesterday but this improved today. Denies possibility of . She denies trauma. She is taking Excedrin. Denies other complaints. Physical Examination: Vitals are stable. Patient is afebrile. Alert no acute distress. HEENT exam is unremarkable. Neck is supple. No meningismus Lungs are clear and equal bilaterally. Heart is regular rate and rhythm. Abdomen is soft nontender nondistended. Extremities are unremarkable. Skin is warm and dry. No focal neurologic deficit. Remainder of exam is unremarkable. Emergency Department Course and Treatment: Patient given IV fluids. Chemistries unremarkable. hCG negative. Patient was given Tylenol. On reevaluation, she is feeling improved. She is advised to follow up with her primary care physician. Advised return to ED if worsening complaints. Disposition: Discharge home Impression: Mild dehydration This note was generated with [employer] dictation software. It may contain incorrect words, spelling, and punctuation that were not noted in review of the chart prior to signing ED Disposition - Plan for ED Patient: Instructions: Dehydration Referrals: Arianne Ball MD [Primary Care Provider] -
--- NOTE | 2019-05-24 19:25 | RAD_ITS ---
STUDY: X-RAY CHEST REASON FOR EXAM: Female, 24 years old. Dizziness TECHNIQUE: AP portable COMPARISON: June 30, 2015 FINDINGS: The lungs are clear and expanded. There is no demonstrated pleural abnormality. Normal size heart. Normal mediastinum and aron. Normal visualized pulmonary arteries. Normal visualized aortic arch and descending thoracic aorta. Normal visualized thoracic spine. Normal visualized ribs, clavicles, and shoulders. There is no demonstrated abnormality of the visualized soft tissue structures of the upper abdomen. No significant changes since prior exam RAD/Chest 1 View (Portable) IMPRESSION: Normal x-ray examination of the chest. Electronically Signed: Paco Sheppard MD at 19:54 EDT , Service support ,
[2019-05-24] MEDS: 0.9% Normal Saline 1,000 ML 1000 ML IV (19:46)
[2019-05-24 20:25] LABS: Internal QC Validated? YES +Cl - CLEAR BKGD
[2019-05-24 20:28] LABS: Pregnancy, Serum, hCG Quali. NEGATIVE Negative
[2019-05-24] MEDS: Acetaminophen 500 MG Tablet 1000 MG PO (20:29)
[2019-05-24 20:33] LABS: Anion Gap 7 (5-15); BUN 12 mg/dL (7-18); BUN/Creat Ratio 16.3 RATIO (10-20); Calcium,Total 8.5 mg/dL (8.5-10.1); Chloride 104 mmol/L (98-107); Creatinine, Serum 0.73 mg/dL (0.55-1.02); EST Glomerular Filtration Rate 105 mL/min (>60); Est Glom Filt Rate - Afr Amer 127 mL/min (>60); Estimated Creatinine Clearance 108.77 ml/min; Glucose 90 mg/dL (74-106); Potassium 3.7 mmol/L (3.5-5.1); Sodium Level 137 mmol/L (136-145)
--- NOTE | 2019-05-24 22:48 | ED.DEP ---
ED Disposition - Plan for ED Patient: Instructions: Dehydration Referrals: Arianne Ball MD [Primary Care Provider] -
[2019-05-24 23:11] VITALS: BP 120/77; PULSE 78; RESP 16; O2SAT 98
== END 2019-05-24 23:12 | disposition home or self-care (01) ==
LOC: ED 19:33
PROVIDERS: Emergency Provider Emergency Medicine; Family Provider Family Medicine; PCP Family Medicine
DX: E86.0 Dehydration (principal)
CPT/HCPCS: 71045; 80048; 84703; 96360; 99284; J7030; A4216

== ENCOUNTER 2023-12-04 17:52 | Emergency (ER) | payer OTHER, SELFPAY ==
[2023-12-04 17:55] VITALS: BP 136/85; PULSE 105; RESP 18; TEMP 36.3; O2SAT 99; BMI 41.1
[2023-12-04 17:57] VITALS: BP 136/85; PULSE 105; RESP 18; TEMP 36.3; O2SAT 99
--- NOTE | 2023-12-04 18:46 | EX.ED.DYSGE1 ---
HPI History of Present Illness Chief Complaint: Dizziness Informant: patient Narrative Narrative: Patient presents with mild sense of lightheadedness. Patient states that during the day she just feels slightly lightheaded. It is not presyncopal. She is never fallen. She has never been unsteady. She states she feels like she got up too fast but it has been that way all day. She has been nauseated off and on but never vomited. In fact she has been eating and drinking today. She has a history of dehydration but does not think that that is the cause. No fevers or chills. She does not feel ill. No pains anywhere. Patient is on Celexa, NuvaRing, propranolol, Provigil. PFSH PFSH Home Medications etonogestrel 0.12 mg-ethinyl estradiol 0.015 mg/24 hr vaginal ring (NuvaRing) 1 ea VG DAILY 02/28/19 [History Last Taken Unknown] ondansetron 4 mg disintegrating tablet 4 mg PO Q8H PRN PRN Nausea #10 tabs 12/04/23 [Rx Last Taken Unknown] Allergy/AdvReac Type Severity Reaction Status Date / Time metoclopramide [From Reglan] AdvReac Other Verified 12/04/23 17:54 Social History Smoking Status: Former smoker ROS ROS ED ROS Narrative A complete review of systems was performed and is negative except as documented in the history of present illness. Some specific details below. Constitutional: No recent fevers or chills. She does not feel ill. EYE: No visual complaints or pain. No vertigo or spinning or loss or change in vision. ENT: No difficulty swallowing. No swelling. No pain. No reflux. CV: No chest pain or palpitations. Respiratory: No dyspnea. No hemoptysis. No difficulty taking breaths. GI: Occasional mild nausea but is not prevented eating or drinking. She has never vomited. No diarrhea. : No frequency dysuria or hematuria. Musculoskeletal: No recent trauma. No pains. Skin: No rash. Nondiaphoretic. Neuro: No weakness or numbness. She has a nonspecific sense of unsteadiness at times. Endocrine: No polyuria or polydipsia. EXAM Physical Exam Narrative Exam Narrative: CONSTITUTIONAL: Patient is nontoxic in appearance. The patient looks comfortable. Work of breathing looks normal. HEENT: No notable trauma. Mucous membranes moist. No sinus tenderness. No indication of pain with swallowing. EYES: No conjunctival injection. No proptosis. NECK:No JVD. No stridor. CARDIOVASCULAR: Regular rate. Regular rhythm. No notable murmur. No JVD. RESPIRATORY: No respiratory distress. Breathing is unlabored. No wheezes. No rhonchi. No rales. No pain with a deep breath. No chest wall tenderness. GASTROINTESTINAL: Not distended. Bowel sounds are normal. No tenderness. GENITOURINARY: No tenderness over the bladder. No CVA tenderness. MUSCULOSKELETAL: Atraumatic. No peripheral edema. No tenderness NEUROLOGICAL: Patient is alert and appropriate. No focal deficit noted. SKIN: No noted rashes. No diaphoresis. PSYCHIATRIC: Patient is calm. Mood is appropriate. Const Vital Signs: 12/04/23 17:55 12/04/23 17:57 12/04/23 19:02 Temperature 97.3 F L 97.3 F L Temperature Source Temporal Temporal Pulse Rate 105 H 105 H Respiratory Rate 18 18 Respiratory Effort Normal Respiratory Pattern Normal Blood Pressure 136/85 H 136/85 H Blood Pressure Mean 102 102 Pulse Ox 99 99 Oxygen Delivery Method Room Air Room Air 12/04/23 20:01 Temperature 98.3 F Temperature Source Oral Pulse Rate 80 Respiratory Rate 16 Respiratory Effort Respiratory Pattern Blood Pressure 110/67 Blood Pressure Mean 81 Pulse Ox 99 Oxygen Delivery Method Room Air MDM MDM MDM Narrative Medical decision making narrative: Patient CBC is normal other than mild elevation of her white count. This is chronic. Patient's electrolytes were overall unremarkable. Her serum glucose was normal at 94. Patient's serum was negative. Patient was very happy to know that she was not anemic. I explained that she may have a viral syndrome. She may have mild dehydration. But she is up walking comfortable stable. I think she is safe for discharge. Lab Data Attestation: I reviewed the patient's lab results. Labs: Laboratory Results - last 24 hr 12/04/23 18:57 WBC 12.7 H RBC 4.89 Hgb 13.7 Hct 41.7 MCV 85.3 MCH 28.0 MCHC 32.9 RDW Std Deviation 40.6 RDW Coeff of Michael 13.1 Plt Count 340 MPV 8.6 Immature Gran % (Auto) 0.400 Neut % (Auto) 58.2 Lymph % (Auto) 30.1 [place] % (Auto) 7.9 Eos % (Auto) 2.8 Baso % (Auto) 0.6 Absolute Neuts (auto) 7.4 Absolute Lymphs (auto) 3.81 Nucleated RBC % 0 Sodium 139 Potassium 4.0 Chloride 106 Carbon Dioxide 28.0 Anion Gap 5 BUN 11 Creatinine 0.68 Estim Creat Clear Calc 156.51 Est GFR (MDRD) Af Amer 133 Est GFR (MDRD) Non-Af 110 BUN/Creatinine Ratio 16.1 Glucose 94 Calcium 8.9 Serum , Qual NEGATIVE Discharge Plan Triage Chief Complaint: Dizziness ED Provider: Facundo Menchaca Dx/Rx/DC Orders Clinical Impression: Light-headedness, Nausea Instructions: ED Dizziness, Uncertain Cause Prescriptions: New ondansetron [ondansetron] 4 mg tablet,disintegrating 4 mg PO Q8H PRN PRN (Reason: Nausea) Qty: 10 0RF No Action etonogestrel-ethinyl estradiol [NuvaRing] 1 EACH ring 1 ea VG DAILY Primary Care Provider: Virginia Miranda Referrals: Arianne Ball MD [Med Staff - [employer]] - 3-5 Days if not improving Disposition Disposition: Home, Self Care
[2023-12-04] MEDS: 0.9% Normal Saline (1000mL) 1,000 ML 1000 ML IV (19:01)
[2023-12-04 19:04] LABS: Absolute Lymphocyte Count 3.81 X10^3/uL (0.83-4.51); Absolute Neutrophil Count 7.4 X10^3/uL (2.0-7.7); Basophil# 0.07 X10^3/uL; Basophil% 0.6 % (0-1); Eosinophil# 0.36 X10^3/uL; Eosinophils% 2.8 % (0-5); Hematocrit 41.7 % (37-47); Hemoglobin 13.7 g/dL (12.0-15.0); Lymphocyte # 3.81 X10^3/ul (0.83-4.51); Lymphocyte % 30.1 % (19-41); Mean Corp Hgb Conc 32.9 g/dL (32-36); Mean Corpuscular Volume 85.3 fL (81-99); Mean Platelet Vol. 8.6 fl (6.2-12.0); Monocyte% 7.9 % (0-10); NRBC Flagged by Analyzer 0 % (0-5); Neutrophil # 7.37 X10^3/uL (2.7-7.7); Neutrophil % 58.2 % (47-70); Platelet Count 340 K/mm3 (150-450); RBC Distribution Width CV 13.1 % (11.6-14.6); RBC Distribution Width SD 40.6 fl (35.1-43.9); Red Blood Count 4.89 M/mm3 (4.2-5.4); White Blood Count 12.7 K/mm3 (4.4-11.0)
--- OUTSIDE RECORDS SUMMARY | 2023-12-04 19:16 | XMS RPT_ITS | CCD ---
Author Name Unknown Address [address] [place] [address] Organization [facility] Care Team Providers Care Fishing Rod Trimmer Name Role Phone HERBERTH PICKETT Unavailable Unavailable JOHNSON BALES Unavailable Unavailable STEPHANIE GILL Unavailable Unavailable JOHNSON BALES Unavailable Unavailable KENYON AUSTIN Unavailable Unavailable JOHNSON BALES Unavailable Unavailable LYNDA CHAVEZ Unavailable Unavailable PROVIDER, UNKNOWN Unavailable Unavailable Havenedel, Arianne Unavailable Unavailable Lynda Marin Primary Care Provider [phone] Virginia Miranda Primary Care Provider Virginia Miranda MD Primary Care Provider Virginia Miranda MD Primary Care Provider Arianne Ball Primary Care Provider Arianne Ball MD Primary Care Provider MIEDEL, ARIANNE E Primary Care Unavailable MIEDEL, ARIANNE E Primary Care Unavailable PAYTON MELO Attending Unavailable MIEDEL, ARIANNE E Primary Care Unavailable MIEDEL, ARIANNE E Primary Care Unavailable MIEDEL, ARIANNE E Primary Care Unavailable MIEDEL, ARIANNE E Primary Care Unavailable PAYTON MELO Attending Unavailable MIEDEL, ARIANNE E Primary Care Unavailable PAYTON MELO Referring Unavailable MIEDEL, ARIANNE E Primary Care Unavailable NASREEN VAZ Attending Unavailable MIEDEL, ARIANNE E Primary Care Unavailable Virginia Miranda MD Primary Care Provider Merissa SALES Jaki Unavailable Ruth CUEVAS, Virginia Primary Care Provider [phone] Jaki Craven DO Unavailable Ruth CUEVAS, Virginia Primary Care Provider YOJANA CARDENAS Referring Unavailable CONSUELO, MARCELO TAM Primary Care Unavailable LISHNEVSKI, VIRGINIA Primary Care Unavailable LISHNEVSKI, VIRGINIA Attending Unavailable LISHNEVSKI, VIRGINIA Primary Care Unavailable DEORAS, ERIKA Attending Unavailable BRIDENTHAL, TESSY Referring Unavailable LISHNEVSKI, VIRGINIA Primary Care Unavailable POZSGAY, JAKI Attending Unavailable LISHNEVSKI, VIRGINIA Primary Care Unavailable DEORAS, ERIKA Referring Unavailable DEORAS, ERIKA Attending Unavailable LISHNEVSKI, VIRGINIA Primary Care Unavailable DEORAS, ERIKA Attending Unavailable DEORAS, ERIKA Referring Unavailable LISHNEVSKI, VIRGINIA Primary Care Unavailable DEORAS, ERIKA Attending Unavailable DEORAS, ERIKA Referring Unavailable TREVON TESSY Attending Unavailable LISHNEVSKI, VIRGINIA Primary Care Unavailable LISHNEVSKI, VIRGINIA Attending Unavailable LISHNEVSKI, VIRGINIA Primary Care Unavailable BRIDENTHAL, TESSY Attending Unavailable LISHNEVSKI, VIRGINIA Primary Care Unavailable LISHNEVSKI, VIRGINIA Primary Care Unavailable LISHNEVSKI, VIRGINIA Attending Unavailable LISHNEVSKI, VIRGINIA Primary Care Unavailable BRIDENTHAL, TESSY Referring Unavailable DEORAS, ERIKA Attending Unavailable TREVON, TESSY Attending Unavailable LISHNEVSKI, VIRGINIA Primary Care Unavailable LISHNEVSKI, VIRGINIA Primary Care Unavailable TREVON, TESSY Attending Unavailable Allergies Allergy Classification Reported Allergen(s) Allergy Type Date of Onset Reaction(s) Facility Opioid Agonists (1 source) traMADol Drug Allergy 11-14-20 [facility] (2 sources) traMADol Drug Allergy 11-14-20 [place], [place] (18 sources) Metoclopramide Drug Allergy 05-24-20 [facility] (14 sources) traMADol; Translations: [TRAMADOL] Drug Allergy 12-04-19 Other: See Comments, Anxiety, Other [facility] (12 sources) environmental [Other] Propensity to adverse reactions 08-28-20 08 Intolerance [facility] Work Phone: (20 sources) metroNIDAZOLE; Translations: [METRONIDAZOLE] Drug Allergy 11-21-20 22 Rash [facility] Work Phone: (1 source) OTHER; Translations: [OTHER] Propensity to adverse reactions (disorder) 08-28-20 08 [facility] Rep[facility] (1 source) ALLERGIES NOT ON FILE; Translations: [ALLERGIES NOT ON FILE] Propensity to adverse reactions (disorder) [facility] NEGATED: Highlighted row has been ruled out!Unclassified (10 sources) Other Propensity to adverse reactions 06-28-20 21 Itching [facility] Medications Current Medications Medication Drug Class(es) Dates Sig (Normalized) Sig (Original) acetaminophen 325 mg / oxyCODONE hydrochloride 5 mg oral tablet (1 source) Opioid Agonist Start: 06-28-2021 End: 07-05-2021 take 1 tablet by mouth every eight hours as needed for pain oxyCODONE-acetam inophen (PERCOCET) 5-325 MG per tablet Indications: Ganglion cyst of dorsum of right wrist , S/P excision of ganglion cyst Take 1 tablet by mouth every 8 hours as needed for Pain for up to 7 days. 21 tablet 0 06/28/2021 07/05/2021 Active ALPRAZolam 0.5 mg oral tablet (7 sources) Benzodiazepine Start: 11-06-2021 ALPRAZolam (XANAX) 0.5 MG tablet calcium chloride 0.0014 meq/ml / potassium chloride 0.004 meq/ml / sodium chloride 0.103 meq/ml / sodium lactate 0.028 meq/ml injectable solution (1 source) Start: 06-28-2021 lactated ringers infusion cetirizine hydrochloride 10 mg oral tablet (12 sources) Histamine-1 Receptor Antagonist Start: 11-21-2022 End: 11-28-2022 take 1 tablet by mouth once daily cetirizine (ZyrTEC) 10 MG tablet TAKE 1 TABLET BY MOUTH ONCE DAILY FOR 7 DAYS. 0 11/21/2022 Active Completed/Discontinued Medications Medication Drug Class(es) Dates Sig (Normalized) Sig (Original) acetaminophen 500 mg oral tablet (1 source) Start: 06-28-2021 End: 06-28-2021 acetaminophen (TYLENOL) tablet 1,000 mg albuterol 0.83 mg/ml inhalation solution (20 sources) beta2-Adrenergic Agonist Start: 02-27-2021 albuterol (PROVENTIL) 2.5 mg /3 mL (0.083 %) nebulizer solution 2.5 mg. 0 02/27/2021 Active Problems Active Problems Problem Classification Problem Date Documented Date Episodic/Chronic Abdominal pain (1 source) Vulval pain; Translations: [Pelvic and perineal pain] Episodic Administrative/social admission (1 source) Patient encounter status; Translations: [Dietary counseling and surveillance] Episodic Anxiety disorders (20 sources) Anxiety disorder; Translations: [Anxiety disorder, unspecified] Onset: 04-27-2009 12-27-2020 Chronic Contraceptive and procreative management (1 source) Contraception status; Translations: [Encounter for surveillance of vaginal ring hormonal contraceptive device] Episodic Esophageal disorders (2 sources) Gastro-esophageal reflux disease without esophagitis; Translations: [Gastro-esophageal reflux disease without esophagitis] Onset: 12-29-2022 Chronic Headache; including migraine (20 sources) Migraine; Translations: [Migraine, unspecified, not intractable, without status migrainosus] Onset: 08-09-2014 12-27-2020 Chronic Immunizations and screening for infectious disease (3 sources) Suspected disease caused by 2019-nCoV; Translations: [Suspected 2019 novel coronavirus infection] Episodic Malaise and fatigue (1 source) Fatigue; Translations: [Other fatigue] Episodic Nonmalignant breast conditions (1 source) Breast lump; Translations: [Breast mass in female] Episodic Nonmalignant breast conditions (1 source) Fibrocystic changes of bilateral breasts; Translations: [Fibrocystic breast changes of both breasts] Nonspecific chest pain (4 sources) Other chest pain; Translations: [Chest pain, unspecified] Onset: 11-14-2018 Episodic Other connective tissue disease (1 source) Ganglion cyst of right dorsal wrist; Translations: [Ganglion, right wrist] Episodic Other connective tissue disease (1 source) Muscle pain; Translations: [Myalgia, unspecified site] Episodic Other female genital disorders (1 source) Vaginal discharge; Translations: [Other specified noninflammatory disorders of vagina] Episodic Other female genital disorders (1 source) Vaginal irritation; Translations: [Other specified noninflammatory disorders of vagina] Episodic Other female genital disorders (1 source) Lesion of vulva; Translations: [Other specified noninflammatory disorders of vulva and perineum] Episodic Other female genital disorders (1 source) Other specified noninflammatory disorders of vulva and perineum; Translations: [Vulvar lesion] Onset: 11-21-2022 Episodic Other infections; including parasitic (1 source) History of sepsis; Translations: [Personal history of other infectious and parasitic diseases] Episodic Other infections; including parasitic (1 source) History of clinical finding in subject; Translations: [Personal history of other infectious and parasitic diseases] Episodic Other lower respiratory disease (1 source) History of bacterial infection; Translations: [Personal history of other diseases of the respiratory system] Episodic Other non-traumatic joint disorders (1 source) Joint pain; Translations: [Arthralgia, unspecified joint] Episodic Other non-traumatic joint disorders (3 sources) Pain in right knee; Translations: [Pain in joint, lower leg] Onset: 10-30-2023 Episodic Other non-traumatic joint disorders (2 sources) Pain in left ankle and joints of left foot; Translations: [Pain in left ankle and joints of left foot] Onset: 10-30-2023 Episodic Other nutritional; endocrine; and metabolic disorders (1 source) Severe obesity; Translations: [Morbid (severe) obesity due to excess calories] Chronic Other nutritional; endocrine; and metabolic disorders (11 sources) Morbid obesity; Translations: [Morbid (severe) obesity due to excess calories] Onset: 12-26-2022 12-26-2022 Chronic Other nutritional; endocrine; and metabolic disorders (2 sources) Morbid (severe) obesity due to excess calories; Translations: [Morbid (severe) obesity due to excess calories (HCC)] Onset: 12-10-2022 Chronic Other nutritional; endocrine; and metabolic disorders (2 sources) Body mass index (BMI) 40.0-44.9, adult; Translations: [Body mass index (BMI) 40.0-44.9, adult (HCC)] Onset: 12-10-2022 Chronic Other screening for suspected conditions (not mental disorders or infectious disease) (2 sources) Cancer cervix screening status; Translations: [Encounter for screening for malignant neoplasm of cervix] Episodic Other skin disorders (1 source) Eruption; Translations: [Rash and other nonspecific skin eruption] Episodic Other upper respiratory infections (5 sources) Viral upper respiratory tract infection; Translations: [Acute upper respiratory infection, unspecified] Episodic Pleurisy; pneumothorax; pulmonary collapse (2 sources) Pleural effusion, not elsewhere classified; Translations: [Pleural effusion, not elsewhere classified] Onset: 11-14-2018 Episodic Residual codes; unclassified (2 sources) Obstructive sleep apnea syndrome; Translations: [Obstructive sleep apnea (adult) (pediatric)] Chronic Residual codes; unclassified (11 sources) Hypersomnia; Translations: [Hypersomnia, unspecified] Onset: 12-10-2022 12-10-2022 Chronic Residual codes; unclassified (4 sources) Idiopathic hypersomnia; 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] Chronic Residual codes; unclassified (2 sources) Hypersomnia, unspecified; Translations: [Hypersomnia, unspecified] Onset: 12-10-2022 Chronic Residual codes; unclassified (2 sources) Obstructive sleep apnea (adult) (pediatric); Translations: [Obstructive sleep apnea (adult) (pediatric)] Onset: 12-10-2022 Chronic Residual codes; unclassified (1 source) Past history of procedure; Translations: [Other specified postprocedural states] Episodic Residual codes; unclassified (1 source) History of drug therapy; Translations: [Personal history of other drug therapy] Episodic Residual codes; unclassified (1 source) Chill; Translations: [Chills (without fever)] Episodic Superficial injury; contusion (1 source) Abrasion of left cornea; Translations: [Injury of conjunctiva and corneal abrasion without foreign body, left eye, initial encounter] Episodic Past or Other Problems Problem Classification Problem Date Documented Da te Episodic/Chronic Allergic reactions (20 sources) Allergy status to narcotic agent status; Translations: [Environmental allergy] Onset: 02-25-2016 12-27-2020 Episodic Bacterial infection; unspecified site (20 sources) Chlamydial infection; Translations: [Chlamydial infection, unspecified] Onset: 07-06-2020 07-06-2020 Episodic Hemorrhoids (20 sources) Hemorrhoids; Translations: [Unspecified hemorrhoids] Onset: 04-15-2021 04-15-2021 Episodic Other gastrointestinal disorders (12 sources) Constipation; Translations: [Constipation, unspecified] Onset: 02-04-2013 02-04-2013 Episodic Other non-traumatic joint disorders (20 sources) Multiple joint pain; Translations: [Pain in unspecified joint] Onset: 02-25-2016 12-27-2020 Episodic Other nutritional; endocrine; and metabolic disorders (12 sources) Overweight; Translations: [Overweight] Onset: 02-25-2016 02-25-2016 Episodic Other nutritional; endocrine; and metabolic disorders (2 sources) Abnormal weight gain; Translations: [Abnormal weight gain] Onset: 01-28-2023 Episodic Residual codes; unclassified (20 sources) Family history of breast cancer; Translations: [Family history of malignant neoplasm of breast] Onset: 07-05-2020 07-05-2020 Episodic Residual codes; unclassified (20 sources) Family history of cancer of colon; Translations: [Family history of malignant neoplasm of digestive organs] Onset: 07-05-2020 07-05-2020 Episodic Residual codes; unclassified (11 sources) Body fluid retention; Translations: [Edema, unspecified] Onset: 12-10-2022 12-10-2022 Episodic Residual codes; unclassified (2 sources) Sleep disorder, unspecified; Translations: [Sleep disorder, unspecified] Onset: 04-10-2023 Episodic Residual codes; unclassified (2 sources) Edema, unspecified; Translations: [Edema, unspecified] Onset: 12-10-2022 Episodic Septicemia (except in labor) (11 sources) Sepsis; Translations: [Sepsis, unspecified organism] Onset: 11-03-2022 11-03-2022 Episodic Spondylosis; intervertebral disc disorders; other back problems (13 sources) Backache; Translations: [Dorsalgia, unspecified] Onset: 12-29-2022 12-29-2022 Episodic Results Test Name Value Interpretation Reference Range Facil ity Vital Signs Date Time Vital Sign Value Performing Clinician Facility 02-17-2023 14:38-0400 Body height 166.4 cm Erika Perkins MD Work Phone: [facility] 02-17-2023 14:38-0400 Body mass index (BMI) [Ratio] 39.99 kg/m2 Erika Perkins MD Work Phone: [facility] 02-17-2023 14:38-0400 Body weight 110.68 kg Erika Perkins MD Work Phone: [facility] 02-17-2023 14:38-0400 Diastolic blood pressure 70 mm[Hg] Erika Perkins MD Work Phone: [facility] 02-17-2023 14:38-0400 Heart rate 98 /min Erika Perkins MD Work Phone: [facility] 02-17-2023 14:38-0400 Respiratory rate 18 /min Erika Perkins MD Work Phone: [facility] 02-17-2023 14:38-0400 Systolic blood pressure 114 mm[Hg] Erika Perkins MD Work Phone: [facility] 12-23-2022 08:22-0500 Body height 165.1 cm Payton Melo SILVICULTURE FORESTER.CNM Work Phone: [facility] 12-23-2022 08:22-0500 Body weight 113.76 kg Payton Melo SILVICULTURE FORESTER.CNM Work Phone: [facility] 12-23-2022 08:22-0500 Diastolic blood pressure 70 mm[Hg] Payton Melo SILVICULTURE FORESTER.CNM Work Phone: [facility] 12-23-2022 08:22-0500 Systolic blood pressure 116 mm[Hg] Payton Melo SILVICULTURE FORESTER.CNM Work Phone: [facility] 12-15-2022 17:47-0500 Body temperature 99 [degF] Heather Bravo APRN.[employer] ADMINISTRATOR Work Phone: [facility] 12-15-2022 17:47-0500 Body weight 116.57 kg Heather Bravo APRN.[employer] ADMINISTRATOR Work Phone: [facility] 12-15-2022 17:47-0500 Diastolic blood pressure 78 mm[Hg] Heather Bravo APRN.[employer] ADMINISTRATOR Work Phone: [facility] 12-15-2022 17:47-0500 Heart rate 105 /min Heather Bravo APRN.[employer] ADMINISTRATOR Work Phone: [facility] 12-15-2022 17:47-0500 Respiratory rate 18 /min Heather Bravo SILVICULTURE FORESTER.[employer] ADMINISTRATOR Work Phone: [facility] 12-15-2022 17:47-0500 SaO2% (BldA) [Mass fraction] 99 % Heather Bravo APRN.[employer] ADMINISTRATOR Work Phone: [facility] 12-15-2022 17:47-0500 Systolic blood pressure 122 mm[Hg] Heather Bravo APRN.[employer] ADMINISTRATOR Work Phone: [facility] 12-11-2022 16:38-0500 Body temperature 99 [degF] Suzy Wormald PA-C Work Phone: [facility] 12-11-2022 16:38-0500 Body weight 115.21 kg Suzy Wormald PA-C Work Phone: [facility] 12-11-2022 16:38-0500 Diastolic blood pressure 80 mm[Hg] Suzy Wormald PA-C Work Phone: [facility] 12-11-2022 16:38-0500 Heart rate 108 /min Suzy Wormald PA-C Work Phone: [facility] 12-11-2022 16:38-0500 SaO2% (BldA) [Mass fraction] 98 % Suzy Wormald PA-C Work Phone: [facility] 12-11-2022 16:38-0500 Systolic blood pressure 126 mm[Hg] Suzy Wormald PA-C Work Phone: [facility] 11-21-2022 13:52-0500 Body weight 114.49 kg Payton Melo SILVICULTURE FORESTER.CNM Work Phone: [facility] 11-21-2022 13:52-0500 Diastolic blood pressure 72 mm[Hg] Payton Melo SILVICULTURE FORESTER.CNM Work Phone: [facility] 11-21-2022 13:52-0500 Systolic blood pressure 128 mm[Hg] Payton Melo SILVICULTURE FORESTER.CNM Work Phone: [facility] 11-21-2022 09:14-0500 Body height 165.1 cm Keira Lopez SILVICULTURE FORESTER.[employer] ADMINISTRATOR Work Phone: [facility] 11-21-2022 09:14-0500 Body temperature 98.8 [degF] Keira Lopez SILVICULTURE FORESTER.[employer] ADMINISTRATOR Work Phone: [facility] 11-21-2022 09:14-0500 Body weight 113.4 kg Keira Lopez SILVICULTURE FORESTER.[employer] ADMINISTRATOR Work Phone: [facility] 11-21-2022 09:14-0500 Diastolic blood pressure 75 mm[Hg] Keira Lopez SILVICULTURE FORESTER.[employer] ADMINISTRATOR Work Phone: [facility] 11-21-2022 09:14-0500 Heart rate 102 /min Keira Lopez SILVICULTURE FORESTER.[employer] ADMINISTRATOR Work Phone: [facility] 11-21-2022 09:14-0500 Respiratory rate 16 /min Keira Lopez SILVICULTURE FORESTER.[employer] ADMINISTRATOR Work Phone: [facility] 11-21-2022 09:14-0500 SaO2% (BldA) [Mass fraction] 98 % Keira Lopez SILVICULTURE FORESTER.[employer] ADMINISTRATOR Work Phone: [facility] 11-21-2022 09:14-0500 Systolic blood pressure 132 mm[Hg] Keira Lopez SILVICULTURE FORESTER.[employer] ADMINISTRATOR Work Phone: [facility] 11-13-2022 15:13-0500 Body height 165.1 cm Keira Lopez SILVICULTURE FORESTER.[employer] ADMINISTRATOR Work Phone: [facility] 11-13-2022 15:13-0500 Body weight 113.4 kg Keira Lopez SILVICULTURE FORESTER.[employer] ADMINISTRATOR Work Phone: [facility] 11-13-2022 15:13-0500 Diastolic blood pressure 76 mm[Hg] Keira Lopez SILVICULTURE FORESTER.[employer] ADMINISTRATOR Work Phone: [facility] 11-13-2022 15:13-0500 Heart rate 111 /min Keira Lopez SILVICULTURE FORESTER.[employer] ADMINISTRATOR Work Phone: [facility] 11-13-2022 15:13-0500 Respiratory rate 16 /min Keira Lopez SILVICULTURE FORESTER.[employer] ADMINISTRATOR Work Phone: [facility] 11-13-2022 15:13-0500 SaO2% (BldA) [Mass fraction] 97 % Keira Lopez SILVICULTURE FORESTER.[employer] ADMINISTRATOR Work Phone: [facility] 11-13-2022 15:13-0500 Systolic blood pressure 131 mm[Hg] Keira Lopez SILVICULTURE FORESTER.[employer] ADMINISTRATOR Work Phone: [facility] 10-15-2022 10:41-0500 Body height 165.1 cm Maira Kennedy PA-C Work Phone: [facility] 10-15-2022 10:41-0500 Body temperature 98.71 [degF] Maira Kennedy PA-C Work Phone: [facility] 10-15-2022 10:41-0500 Body weight 112.04 kg Maira Kennedy PA-C Work Phone: [facility] 10-15-2022 10:41-0500 Diastolic blood pressure 67 mm[Hg] Maira Kennedy PA-C Work Phone: [facility] 10-15-2022 10:41-0500 Heart rate 94 /min Maira Kennedy PA-C Work Phone: [facility] 10-15-2022 10:41-0500 Respiratory rate 16 /min Maira Kennedy PA-C Work Phone: [facility] 10-15-2022 10:41-0500 SaO2% (BldA) [Mass fraction] 97 % Maira Kennedy PA-C Work Phone: [facility] 10-15-2022 10:41-0500 Systolic blood pressure 118 mm[Hg] Maira Kennedy PA-C Work Phone: [facility] 10-01-2021 19:19-0500 Diastolic blood pressure 83 mm[Hg] Ahmet Avalos DO Work Phone: [facility] 10-01-2021 19:19-0500 Heart rate 88 /min Ahmet Robbie DO Work Phone: [facility] 10-01-2021 19:19-0500 Respiratory rate 16 /min Ahmet Robbie DO Work Phone: [facility] 10-01-2021 19:19-0500 SaO2% (BldA) [Mass fraction] 99 % Ahmet Robbie DO Work Phone: [facility] 10-01-2021 19:19-0500 Systolic blood pressure 121 mm[Hg] Ahmet Robbie DO Work Phone: [facility] 10-01-2021 17:28-0500 Body temperature 98.29 [degF] Ahmet Robbie DO Work Phone: [facility] 06-28-2021 09:19-0400 Diastolic blood pressure 58 mm[Hg] Andrew Ryder MD Work Phone: [facility] Work Phone: 06-28-2021 09:19-0400 Heart rate 77 /min Andrew Ryder MD Work Phone: [facility] Work Phone: 06-28-2021 09:19-0400 Respiratory rate 20 /min Andrew Ryder MD Work Phone: [facility] Work Phone: 06-28-2021 09:19-0400 SaO2% (BldA) [Mass fraction] 97 % Andrew Ryder MD Work Phone: [facility] Work Phone: 06-28-2021 09:19-0400 Systolic blood pressure 103 mm[Hg] Andrew Ryder MD Work Phone: [facility] Work Phone: 06-28-2021 09:09-0400 Body temperature 97.9 [degF] Andrew Ryder MD Work Phone: [facility] Work Phone: 06-28-2021 07:12-0400 Body height 165.1 cm Andrew Ryder MD Work Phone: [facility] Work Phone: 06-28-2021 07:12-0400 Body mass index (BMI) [Ratio] 35.94 kg/m2 Andrew Ryder MD Work Phone: [facility] Work Phone: 06-28-2021 07:12-0400 Body weight 97.98 kg Andrew Ryder MD Work Phone: [facility] Work Phone: Encounters Encounter Date Encounter Type Care Provider Facility Start: 11-27-2023 End: 11-27-2023 Office outpatient visit 10 minutes Tessy Thompson SILVICULTURE FORESTER - TRACK SUPERINTENDENT Work Phone: [facility] Sleep Medicine Procedures Date Procedure Procedure Detail Performing Clinician Start: 10-30-2023 XR ANKLE LEFT 3+ VIEWS YOJANA CARDENAS Start: 10-30-2023 XR KNEE RIGHT 4+ VIEWS YOJANA CARDENAS Start: 03-20-2023 Follow-up visit Follow-up ERIKA WALDEN Start: 01-28-2023 Iaad ia hiv-1 ag w/h iv-1 & hiv-2 antbdy single Virginia Miranda MD Work Phone: Start: 01-28-2023 Lipid panel Virginia muniz MD Work Phone: Start: 01-28-2023 Lipid 1996 panel - S isidro or Plasma Erika Perkins MD Work Phone: Start: 12-23-2022 Iadna chlamydia trac homatis amplified probe tq Payton Melo SILVICULTURE FORESTER.CNM Work Phone: Start: 12-23-2022 Microscopic observat ion [Identifier] in Cervix by Cyto stain Erika Perkins MD Work Phone: Start: 12-15-2022 STREP A MOLECULAR (POC) Heather Bravo SILVICULTURE FORESTER.[employer] ADMINISTRATOR Work Phone: Start: 12-11-2022 STREP A MOLECULAR (POC) [facility] Provider Start: 11-21-2022 End: 11-21-2022 Iadna nos amplified probe tq each organism Payton Melo SILVICULTURE FORESTER.CNM Work Phone: Start: 11-21-2022 BACTERIAL VAGINOSIS AMPLIFICATION Payton Melo SILVICULTURE FORESTER.CNM Work Phone: Start: 11-21-2022 COVID WITH FLUA+B, ROUTINE Keira Lopez SILVICULTURE FORESTER.[employer] ADMINISTRATOR Work Phone: Start: 11-21-2022 Iadna streptococcus group a amplified probe tq Keira Lopez SILVICULTURE FORESTER.[employer] ADMINISTRATOR Work Phone: Start: 11-13-2022 BACTERIAL VAGINOSIS AMPLIFICATION Keira Lopez SILVICULTURE FORESTER.[employer] ADMINISTRATOR Work Phone: Start: 11-13-2022 Iadna trichomonas va ginalis amplified probe tech Keira Lopez SILVICULTURE FORESTER.[employer] ADMINISTRATOR Work Phone: Start: 07-10-2021 Comprehensive metabo lic panel Virginia Miranda MD Work Phone: Start: 07-10-2021 Rheumatoid factor quantitative Virginia Miranda MD Work Phone: Start: 07-10-2021 Radiologic examinati on knee 3 views Virginia Miranda MD Work Phone: Start: 06-28-2021 Urine test visual color cmprsn jean Jenkins MD Work Phone: Start: 04-18-2021 Radex wrist complete minimum 3 views Andrew Ryder MD Work Phone: Start: 02-27-2021 Blood count complete auto&auto difrntl wbc Virginia Miranda Work Phone: Start: 02-27-2021 C-reactive protein Erinn Miranda Work Phone: Start: 02-27-2021 Comprehensive metabo lic panel Virginia Miranda Work Phone: Start: 02-27-2021 Rheumatoid factor quantitative Virginia Miranda Work Phone: Start: 02-27-2021 Sedimentation rate r bc automated Virginia Miranda Work Phone: Start: 10-09-2020 Microscopic observat ion [Identifier] in Cervix by Cyto stain Ahmet Avalos DO Work Phone: Start: 07-25-2020 Us breast uni real t mary with image limited Maria Luz Bishop Work Phone: Start: 07-12-2020 Follow-up visit Plan of Treatment Date Care Activity Detail Author Start: 2057 RSV Immunization age d 60 or older (1 - 1-dose 60+ series) RSV Immunization aged 60 or older (1 - 1-dose 60+ series) [facility] Start: 2047 Zoster Vaccines (1 of 2) Zoster Vacc lucy (1 of 2) [facility] Start: 08-31-2028 DTaP/Tdap/Td vaccine (8 - Td or Tdap) DTaP/Tdap/Td vaccine (8 - Td or Tdap) [facility] Start: 08-31-2028 DTaP/Tdap/Td vaccine (8 - Td) DTaP/Tdap/Td vaccine (8 - Td) [facility] Work Phone: Start: 08-31-2028 DTaP/Tdap/Td Vaccine s (8 - Td or Tdap) DTaP/Tdap/Td Vaccines (8 - Td or Tdap) [facility] Start: 01-29-2028 Lipid panel Lipid Panel [facility] Start: 12-23-2025 Screening for malign ant neoplasm of cervix Pap Smear [facility] Start: 02-29-2024 End: 02-29-2024 Patient encounter procedure 02/29/2024 2:30 PM EDT Office Visit [facility] Sleep [facility] [address] [place], [place] [id number] Erika Perkins MD [address] [place] [address] [facility] Start: 01-27-2024 End: 01-27-2024 Patient encounter procedure 01/27/2024 9:00 AM EST Office Visit [facility] Family Medicine [address] [place] [id number] Virginia Miranda MD [address] [place], [place] [address] [facility] Start: 10-09-2023 Screening for malign ant neoplasm of cervix [facility] Start: 09-18-2023 End: 09-18-2023 Telemedicine consultation with patient 09/18/2023 3:20 PM EDT Telemedicine [facility] Sleep [facility] [address] [place] [address] Tessy Thompson APRN - TRACK SUPERINTENDENT [address] [place] [address] [facility] Start: 08-05-2023 End: 08-05-2023 Telemedicine consultation with patient 08/05/2023 8:20 AM EDT Telemedicine [facility] Sleep Medicine [address] [place] [address] Tessy Thompson SILVICULTURE FORESTER - TRACK SUPERINTENDENT [address] [place] [address] [facility] Start: 07-24-2023 COVID-19 Vaccine ( season) COVID-19 Vaccine () [facility] Start: 07-24-2023 Influenza vaccination Influenza Vacc ine (#1) [facility] Start: 06-26-2023 End: 06-26-2023 Telemedicine consultation with patient [facility] Start: 04-24-2023 End: 04-24-2023 Telemedicine consultation with patient 04/24/2023 Telemedicine Sleep Medicine Tessy Thompson, SILVICULTURE FORESTER - TRACK SUPERINTENDENT [address] [place] [address] [facility] Start: 04-17-2023 End: 04-17-2023 Patient encounter procedure 04/17/2023 Office Visit Sleep Medicine Erika Perkins MD [address] [place] [address] [address] [place] [address] [facility] Start: 03-03-2023 End: 03-03-2024 Home sleep test Home sleep test Sleep Center Routine JENS (obstructive sleep apnea) Expected: 03/03/2023 (Approximate), Expires: 03/03/2024 [facility] Work Phone: Immunizations Immunization Date Immunization Notes Care Provider Fa cili 01-28-2023 influenza, seasonal, injectable, preservative free Erika Perkins MD Work Phone: [facility] 01-28-2023 influenza virus vaccine, unspecified formulation Tessy Trevon SILVICULTURE FORESTER - [facility] Work Phone: [facility] 12-05-2021 COVID-19 original vaccine, age 12+ yr, monovalent (PFIZER-BIONTECH - MENJIVAR TOP) Maira Benavides PA-C Work Phone: [facility] 04-08-2021 COVID-19, Pfizer, PF , 30mcg/0.3mL Andrew Ryder MD Work Phone: [facility] Work Phone: 03-16-2021 COVID-19, Pfizer, PF , 30mcg/0.3mL Andrew Ryder MD Work Phone: [facility] 02-04-2013 Meningococcal, MCV4, unspecified conjugate formulation(groups A, C, Y and W-135) Andrew Ryder MD Work Phone: [facility] Work Phone: 08-23-2012 influenza virus vaccine, unspecified formulation Andrew Ryder MD Work Phone: [facility] Work Phone: 10-21-2010 human papilloma viru s vaccine, quadrivalent Andrew Ryder MD Work Phone: [facility] Work Phone: 06-18-2010 human papilloma viru s vaccine, quadrivalent Andrew Ryder MD Work Phone: [facility] Work Phone: 04-15-2010 human papilloma viru s vaccine, quadrivalent Andrew Ryder MD Work Phone: [facility] Work Phone: 10-19-2009 hepatitis A vaccine, unspecified formulation Andrew Ryder MD Work Phone: [facility] Work Phone: 04-14-2009 hepatitis A vaccine, unspecified formulation Andrew Ryder MD Work Phone: [facility] Work Phone: 02-07-2008 Meningococcal, MCV4, unspecified conjugate formulation(groups A, C, Y and W-135) Andrew Ryder MD Work Phone: [facility] Work Phone: 02-07-2008 tetanus toxoid, redu madeline diphtheria toxoid, and acellular pertussis vaccine, adsorbed Andrew Ryder MD Work Phone: [facility] Work Phone: 03-15-2002 diphtheria, tetanus toxoids and acellular pertussis vaccine Andrew Ryder MD Work Phone: [facility] Work Phone: 03-15-2002 measles, mumps and rubella virus vaccine Andrew Ryder MD Work Phone: [facility] Work Phone: 03-15-2002 poliovirus vaccine, inactivated Andrew Ryder MD Work Phone: [facility] Work Phone: 1999 Chicken Pox (disease) Maira lara PA-C Work Phone: [facility] Work Phone: 06-12-1998 diphtheria, tetanus toxoids and acellular pertussis vaccine Andrew Ryder MD Work Phone: [facility] Work Phone: 06-12-1998 haemophilus influenz ae type b vaccine, HbOC conjugate Andrew Ryder MD Work Phone: [facility] Work Phone: 01-30-1998 measles, mumps and rubella virus vaccine Andrew Ryder MD Work Phone: [facility] Work Phone: 1997 haemophilus influenz ae type b vaccine, HbOC conjugate Adnrew Ryder MD Work Phone: [facility] Work Phone: 1997 diphtheria, tetanus toxoids and acellular pertussis vaccine Andrew Ryder MD Work Phone: [facility] Work Phone: 1997 hepatitis B vaccine, pediatric or pediatric/adolescent dosage Maira Benavides PA-C Work Phone: [facility] Work Phone: 1997 poliovirus vaccine, inactivated Andrew Ryder MD Work Phone: [facility] Work Phone: 1997 diphtheria, tetanus toxoids and acellular pertussis vaccine Andrew Ryder MD Work Phone: [facility] Work Phone: 1997 haemophilus influenz ae type b vaccine, HbOC conjugate Andrew Ryder MD Work Phone: [facility] Work Phone: 1997 poliovirus vaccine, inactivated Andrew Ryder MD Work Phone: [facility] Work Phone: 1997 diphtheria, tetanus toxoids and acellular pertussis vaccine Andrew Ryder MD Work Phone: [facility] 1997 haemophilus influenz ae type b vaccine, HbOC conjugate Andrew Ryder MD Work Phone: [facility] Work Phone: 1997 hepatitis B vaccine, pediatric or pediatric/adolescent dosage Maira Benavides PA-C Work Phone: [facility] Work Phone: 1997 poliovirus vaccine, inactivated Andrew Ryder MD Work Phone: [facility] Work Phone: 1997 hepatitis B vaccine, pediatric or pediatric/adolescent dosage Maira Benavides PA-C Work Phone: [facility] Work Phone: Payers Date Payer Category Payer Unknown [id number] 2022 Medicaid [id number] 2021 Private Health Insurance [id number] 2021 Private Health Insurance [id number] 2020 Unknown [id number] 2019 Medicaid [id number] 2018 Medicaid [id number] 2018 Private Health Insurance [id number] 1997 Unknown [id number] 1997 Unknown [id number] 1997 Unknown [id number] Unknown Social History Date Type Detail Facility Start: 07-05-2020 Tobacco smoking stat [facility] Start: 07-05-2020 End: 12-29-2022 Tobacco use and exposure [facility] Start: 07-05-2020 End: 10-01-2021 Alcohol intake Current non-drinker of alcohol (finding) [facility] Start: 1997 Sex Assigned At Not on file [place] Start: 02-27-2021 End: 12-29-2022 Tobacco smoking status NHIS Former smoker [facility] End: 11-08-2018 History of tobacco use Current smoker [facility] Work Phone: Start: 12-14-2021 End: 04-09-2023 Exposure to SARS-CoV-2 (event) Not sure [facility] Start: 01-13-2022 End: 11-27-2023 Alcohol intake Current drinker of alcohol (finding) [facility] Work Phone: Start: 11-28-2021 History SDOH Alcohol Comment occ [facility] Work Phone: Start: 2018 End: 11-21-2022 Tobacco smoking status AZIS Smokes tobacco daily [facility] End: 11-08-2018 History of tobacco use Cigarette Smoker [facility] Start: 2018 End: 02-17-2023 Cigarettes smoked current (pack per day) - Reported 0.5 [facility] Start: 10-06-2011 Tobacco Comment 8 cigs daily [facility] Start: 2018 Alcohol Comment social [facility] Start: 1997 Sex Assigned At Female [facility] Start: 11-03-2022 Alcohol Comment occasionally [facility] Start: 02-17-2023 Tobacco use panel [facility] Start: 09-11-2022 Gender identity Identifies as female gender (finding) [facility] Start: 09-11-2022 Sexual orientation Heterosexual (fin ding) [facility] Medical Equipment Procedure Code Equipment Code Equipment Origin al Text Equipment Identifier Dates fluorescein ophthalmic strip 1 mg [id number] Start: 10-01-2021 End: 10-01-2021 Clinical Notes 06-28-2021 to 11-27-2023 Tessy Thompson APRN - TRACK SUPERINTENDENT - 11/27/2023 8:20 AM ESTTelephone Encounter - Genevieve Gandhi RN - 10/12/2023 4:21 PM ESTTelephone Encounter - Genevieve Gandhi RN - 10/12/2023 4:21 PM EST Note Date & Type Note Facility 11-27-2023 History of Presen t illness Narrative Images from the original note were not included. [facility] UP AUDI0 VISIT-SLEEP Date of last visit: 08/05/2023 Plan at that time: Increasing Provigil to 200 mg daily. Patient will increase her propranolol to twice daily to see if it helps tamper the increased anxiety she may be experiencing with Provigil. Should continue to follow with her mental health care providers. Can take 1/2 provigil in am and 1/2 provigil before 3 p.m. to see if this helps her through her workday even more. Asked patient to check her blood pressure every once in awhile and prior to next appointment to make sure that BP is stable. Reports that her mom has a BP machine at home that she can use. Follow up 6 weeks with arash mehta (scheduled during visit time) Interval History: Patient stuck in virtual waiting room likely due to location that she is in. Visit done over the telephone today. States that she is back to 100 mg of provigil reporting she had covid for about 3 weeks and was off of it and then some pharmacy issues. However, at this time she is pretty happy with how the 100 mg makes her feel. Verified with patient that she is only taking a half tablet as she has filled 200 mg tablets last 2 times according to PDMP. She did not increase her propranolol 10 mg twice a day dosing either. Forgot about that discussion. She is establishing with a new mental health counselor next week and follows with psychiatry. Takes citalopram. Previous psychologist and her psychiatrist do not feel that depression is an issue, rather more anxiety. Has been sleepy since childhood. Has always been hard to wake up. Sleep-Wake Schedule Bedtime: 10 P.M. Final wake time: 6:45-7 A.M. (alarms set from 4:15-6:30 am). she does not wake up refreshed. Sleep Latency: instantly, watches videos Awakenings after sleep onset: 1-2x, because of going to the bathroom, and falls back asleep quickly Naps: none Estimated total sleep time: 8 hours Sleep Metrics: [place] Sleepiness Scale: not done at this visit (8 last visit- on 100mg provigil) Past Treatments: Adderall Klonopin Celexa Hydroxyzine Xywav- caused complete enuresis @ 4.5 g Sleep Studies: HST 03/06/23: weight 244 lbs. KALPESH 3.3. SpO2 min 87%. PSG 04/09/2023: Weight 244; AHI 0.7, latency on PSG 27.8 min, no SOREM. Efficiency 88%. Min spo02 89%, 0 PLM MSLT 04/10/2023: mean latency 2.7 min; No SOREMs, ESS 13 Past Medical History Past Medical History: Diagnosis Date Anxiety with depression Arthritis 2014 bilat knees Back pain Daytime sleepiness Difficulty sleeping Fatigue Heartburn moderate HSV-2 infection Hx: UTI (urinary tract infection) Incontinence Irregular menses Joint pain, knee Morbid obesity, unspecified obesity type (HCC) 12/26/2022 Snoring SOBOE (shortness of breath on exertion) Past Surgical History Past Surgical History: Procedure Laterality Date SECTION (HISTORICAL) REFRACTIVE SURGERY WISDOM TOOTH EXTRACTION WRIST SURGERY Right 06/28/[address] mass excision [address] RYDER Allergies Allergies Allergen Reactions Metoclopramide Other reaction(s): Other Metronidazole Rash Medications Current Outpatient Medications Medication Instructions cetirizine (ZyrTEC) 10 MG tablet TAKE 1 TABLET BY MOUTH ONCE DAILY FOR 7 DAYS. citalopram (CeleXA) 20 MG tablet No dose, route, or frequency recorded. etonogestrel-ethinyl estradiol (Nuvaring) 0.12-0.015 MG/24HR vaginal ring 1 each, Vaginal etonogestrel-ethinyl estradiol (Nuvaring) 0.12-0.015 MG/24HR vaginal ring 1 each, Vaginal lidocaine (Xylocaine) 5 % ointment No dose, route, or frequency recorded. modafinil (PROVIGIL) 100 mg, Oral, Daily modafinil (PROVIGIL) 100 mg, Oral, Daily, Takes 1/2 tab of 200 mg tab Multiple Vitamin (multivitamin) capsule 1 capsule, Oral, Daily Multiple Vitamin (multivitamin) capsule 1 capsule, Oral, Daily valACYclovir (VALTREX) 1,000 mg, Oral, Daily Social History Social History Tobacco Use Smoking status: Former Types: Cigarettes Quit date: 11/08/2018 Years since quittin.0 Smokeless tobacco: Never Substance Use Topics Alcohol use: Yes Comment: occasionally Family History Family History Problem Relation Name Age of Onset Obesity Mother Other ([address]) Mother Optic Neropothy Hyperthyroidism Mother Diabetes Mother Obesity Father Breast cancer Mother's Sister Great Aunt age of onset unknown Cervical cancer Mother's Sister onset unknown Breast cancer Mother's Sister Great Aunt age of onset unknown Breast cancer Maternal Great-Grandmother age of onset unknown Obesity Paternal Grandfather Diabetes Paternal Grandfather Cancer Maternal Grandfather Cancer Maternal Grandmother Review of Systems Review of Systems Constitutional: Positive for fatigue. Psychiatric/Behavioral: Positive for sleep disturbance. Physical Exam There were no vitals filed for this visit. Not able to be done- telephone visit- speech is clear and fluent with good recall of hx and medications Labs/additional studies: Reviewed in [email or web address]- nothing new since 01/28/23 Impression: 1. Idiopathic hypersomnia 2. 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 Found to have severe hypersomnolence on her MSLT (done off citalopram), and PSG also confirmed no JENS. She had complete eneuresis on Xywav. Recommendations: For now will continue Provigil 100 mg daily. Approved for 200mg tablets, so will only take half. Could still increase to 1 tablet daily or half tablet twice per day if needed. She is following with psychologist and psychiatrist for her anxiety. Still feels that she has some, and considering increasing her propranolol to twice per day dosing, along with citalopram Will follow up in [address] Perkins in the clinic (one year follow up for him). Appointment made during this visit. Patient was identified and seen today via Telehealth by agreement and consent. I used the following Telehealth technology: Audio capability only. Total length of call 15 minutes. The patient was offered and advised video for a more comprehensive evaluation, but the patient declined or was unable to use video. Patient location: Patient Location: Home. This patient encounter is appropriate and reasonable under the circumstances: other- distance from office . The patient has been advised of the potential risks and limitations of this mode of treatment (including but not limited to the absence of in-person examination) and has agreed to be treated in a remote fashion in spite of them. Any and all of the patient's/patient's family's questions on this issue have been answered and I have made no promises or guarantees to the patient. The patient has also been advised to contact this office for worsening conditions or problems, and seek emergency medical treatment and/or call 911 if the patient deems either necessary. The patient stated that they are currently in the [facility]. If the patient is a minor, permission has been obtained by the parent or guardian for the patient to receive medical care at this visit. documented in this encounter [facility] 10-12-2023 Telephone encounter Note Requested Prescriptions Pending Prescriptions Disp Refills modafinil (Provigil) 200 MG tablet 30 tablet 0 Sig: Take 1 tablet (200 mg) by mouth daily. Last visit: 08/05/23 Melinda Future visit: none scheduled (states she had COVID and it will take her some time to get back on track with Provigil) Recommendations: Increasing Provigil to 200 mg daily. Patient will increase her propranolol to twice daily to see if it helps tamper the increased anxiety she may be experiencing with Provigil. Should continue to follow with her mental health care providers. Can take 1/2 provigil in am and 1/2 provigil before 3 p.m. to see if this helps her through her workday even more. Asked patient to check her blood pressure every once in awhile and prior to next appointment to make sure that BP is stable. Reports that her mom has a BP machine at home that she can use. Follow up 6 weeks with arash mehta (scheduled during visit time [facility] 10-12-2023 Miscellaneous Notes Requested Prescriptions Pending Prescriptions Disp Refills modafinil (Provigil) 200 MG tablet 30 tablet 0 Sig: Take 1 tablet (200 mg) by mouth daily. Last visit: 08/05/23 Melinda Future visit: none scheduled (states she had COVID and it will take her some time to get back on track with Provigil) Recommendations: Increasing Provigil to 200 mg daily. Patient will increase her propranolol to twice daily to see if it helps tamper the increased anxiety she may be experiencing with Provigil. Should continue to follow with her mental health care providers. Can take 1/2 provigil in am and 1/2 provigil before 3 p.m. to see if this helps her through her workday even more. Asked patient to check her blood pressure every once in awhile and prior to next appointment to make sure that BP is stable. Reports that her mom has a BP machine at home that she can use. Follow up 6 weeks with arash mehta (scheduled during visit time documented in this encounter [facility] 08-23-2023 Telephone encounter Note S: Patient spoke with [facility] nurse regarding COVID question B: Onset of symptoms/concern 5 days A: Patient tested positive today, her symptoms started 5 days. She had flu-like symptoms, lost taste/smell 4 days ago, fever had been gone for 3 days. Patient denies chest pain, SOB, and headache. Patient is asking is she should go back to work tomorrow. R: Reviewed CDC quarantine and masking guidelines. Advised patient that she would need to wear a mask upon returning to work for 5 days. Encouraged fluids, humidifier in room, and tylenol/motrin for discomfort. Patient understands care advice. No further needs at this time. Patient instructed to call back with new or worsening symptoms. Reason for Disposition [1] COVID-19 diagnosed by positive lab test (e.g., PCR, rapid self-test kit) AND [2] mild symptoms (e.g., cough, fever, others) AND [3] no complications or SOB Protocols used: Coronavirus (COVID-19) Diagnosed or [id number] [facility] 08-23-2023 Miscellaneous Notes S: Patient spoke with [facility] nurse regarding COVID question B: Onset of symptoms/concern 5 days A: Patient tested positive today, her symptoms started 5 days. She had flu-like symptoms, lost taste/smell 4 days ago, fever had been gone for 3 days. Patient denies chest pain, SOB, and headache. Patient is asking is she should go back to work tomorrow. R: Reviewed CDC quarantine and masking guidelines. Advised patient that she would need to wear a mask upon returning to work for 5 days. Encouraged fluids, humidifier in room, and tylenol/motrin for discomfort. Patient understands care advice. No further needs at this time. Patient instructed to call back with new or worsening symptoms. Reason for Disposition [1] COVID-19 diagnosed by positive lab test (e.g., PCR, rapid self-test kit) AND [2] mild symptoms (e.g., cough, fever, others) AND [3] no complications or SOB Protocols used: Coronavirus (COVID-19) Diagnosed or [id number] documented in this encounter [facility] 06-26-2023 History of Presen t illness Narrative Images from the original note were not included. [facility] FOLLOW UP TELEHEALTH VISIT-SLEEP Date of last visit: 04/24/2023 Plan at that time: Discussed test results and diagnosis with patient. Discussed Xywav and stimulants used for IH. R/B/SE of medications discussed. Starting Xywav 3 grams per night. Paperwork to be sent and signed by patient. Given websites for discussion on IH and Xywav. No driving when drowsy. Discussed sleep hygiene- although she seems to get appropriate amounts of sleep, she could fine tune her sleep schedule by setting a consistent bedtime. Avoid caffeine after 3 pm. Interval History: Does not particularly like th Xywav and would like to discuss other options. At 3 grams, she would get up to urinate and bump into man and be off balance. At 4.5 grams, she had complete enuresis. She stopped taking the Xywav a week ago. Although she felt her sleep inertia was mildly improved, she didn't really notice any changes in how she felt. At one time was on adderall along with Klonopin. At that time felt it took longer to do tasks, but had a little increase in energy. Reports that she takes celexa more for anxiety, agitation. Reports her psychologist and psychiatrist do not feel depression is an issue. She was taken off Hydroxyzine. Sleeps through alarms. Hard to wake up in the morning since childhood. Always feels tired. Naps are not refreshing. Sleep-Wake Schedule Bedtime: 10 P.M. Final wake time: 6:45-7 A.M. (alarms set from 4:15-6:30 am). she does not wake up refreshed. Sleep Latency: instantly, watches videos Awakenings after sleep onset: 1-2x, because of going to the bathroom, and falls back asleep quickly Naps: none Estimated total sleep time: 8 hours Narcolepsy symptoms: Sleep paralysis: no Sleep-related hallucinations: no Cataplexy: no Head trauma/viral illness preceding sleepiness: had head injury at age 8 or so Enters dream sleep quickly: no Sleep Metrics: [place] Sleepiness Scale: 13 (13 last visit) Past Treatments: Adderall Klonopin Celexa Hydroxyzine Sleep Studies: HST 03/06/23: weight 244 lbs. KALPESH 3.3. SpO2 min 87%. PSG 04/09/2023: Weight 244; AHI 0.7, latency on PSG 27.8 min, no SOREM. Efficiency 88%. Min spo02 89%, 0 PLM MSLT 04/10/2023: mean latency 2.7 min; No SOREMs, ESS 13 Past Medical History Past Medical History: Diagnosis Date Anxiety with depression Arthritis 2015 bilat knees Back pain Daytime sleepiness Difficulty sleeping Fatigue Heartburn moderate HSV-2 infection Hx: UTI (urinary tract infection) Incontinence Irregular menses Joint pain, knee Morbid obesity, unspecified obesity type (HCC) 12/26/2022 Snoring SOBOE (shortness of breath on exertion) Past Surgical History Past Surgical History: Procedure Laterality Date SECTION (HISTORICAL) REFRACTIVE SURGERY WISDOM TOOTH EXTRACTION WRIST SURGERY Right 06/28/[address] right dorsal mass excision DR RYDER Allergies Allergies Allergen Reactions Metoclopramide Other reaction(s): Other Metronidazole Rash Medications Current Outpatient Medications Medication Instructions cetirizine (ZyrTEC) 10 MG tablet TAKE 1 TABLET BY MOUTH ONCE DAILY FOR 7 DAYS. citalopram (CeleXA) 20 MG tablet No dose, route, or frequency recorded. citalopram (CeleXA) 40 MG tablet No dose, route, or frequency recorded. etonogestrel-ethinyl estradiol (Nuvaring) 0.12-0.015 MG/24HR vaginal ring 1 each, Vaginal etonogestrel-ethinyl estradiol (Nuvaring) 0.12-0.015 MG/24HR vaginal ring 1 each, Vaginal hydrOXYzine HCl (Atarax) 25 MG tablet No dose, route, or frequency recorded. hydrOXYzine pamoate (VISTARIL) 12.5 mg, Oral hydrOXYzine pamoate (VISTARIL) 25 mg, Oral, Every 8 hours PRN lidocaine (Xylocaine) 5 % ointment No dose, route, or frequency recorded. Multiple Vitamin (multivitamin) capsule 1 capsule, Oral, Daily Multiple Vitamin (multivitamin) capsule 1 capsule, Oral, Daily oxybates, calcium, magnesium, potassium and sodium, (Xywav) 500 MG/ML solution Take 4.5 grams by mouth at bedtime every night valACYclovir (VALTREX) 1,000 mg, Oral, Daily Social History Social History Tobacco Use Smoking status: Former Types: Cigarettes Quit date: 11/08/2018 Years since quittin.6 Smokeless tobacco: Never Substance Use Topics Alcohol use: Yes Comment: occasionally Family History Family History Problem Relation Name Age of Onset Obesity Mother Other (26890) Mother Optic Neropothy Hyperthyroidism Mother Diabetes Mother Obesity Father Breast cancer Mother's Sister Great Aunt age of onset unknown Cervical cancer Mother's Sister onset unknown Breast cancer Mother's Sister Great Aunt age of onset unknown Breast cancer Maternal Great-Grandmother age of onset unknown Obesity Paternal Grandfather Diabetes Paternal Grandfather Cancer Maternal Grandfather Cancer Maternal Grandmother Review of Systems Review of Systems Constitutional: Positive for fatigue. Physical Exam There were no vitals filed for this visit. General appearance: Well appearing. No acute distress. AAOX3 Head: Normocephalic, without obvious abnormality, atraumatic Eyes: Normal sclera and conjunctiva Lungs: Normal respiratory effort--no dyspnea Skin: Skin color normal. No rashes or lesions Psych: Euthymic Mood, full affect Labs/additional studies: Reviewed in [facility] Impression: No diagnosis found. 28 y/o F with BMI > 30, presented with suspicion of JENS -- snoring, daytime sleepiness, fatigue, but HST came back negative. 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 Found to have severe hypersomnolence on her MSLT (done off citalopram), and PSG confirmed no JENS. Recommendations: Xywav caused side effects and enuresis. Will try to get Provigil approved. If denied, will start low dose adderall. Encourage consistent bedtime routine and 8 hours of sleep per night. Follow up 6 weeks with ms- vv ok (scheduled during visit time) On this date, 06/26/2023 I have spent 45 minutes reviewing previous notes, test results and face to face with the patient discussing the diagnosis and importance of compliance with the treatment plan as well as documenting on the day of the visit. Patient was seen today via Telehealth by agreement and consent. I used the following Telehealth technology: Audio and video capabilities. Patient location: Patient Location: Home. This patient encounter is appropriate and reasonable under the circumstances: transportation issues . The patient has been advised of the potential risks and limitations of this mode of treatment (including but not limited to the absence of in-person examination) and has agreed to be treated in a remote fashion in spite of them. Any and all of the patient's/patient's family's questions on this issue have been answered and I have made no promises or guarantees to the patient. The patient has also been advised to contact this office for worsening conditions or problems, and seek emergency medical treatment and/or call 911 if the patient deems either necessary. The patient stated that they are currently in the [facility]. If the patient is a minor, permission has been obtained by the parent or guardian for the patient to receive medical care at this visit. documented in this encounter [facility] 05-08-2023 Telephone encounter Note Left VM for pharmacist at [facility] that it's OK to dispense. [facility] 05-08-2023 Miscellaneous Notes Left VM for pharmacist at [facility] that it's OK to dispense. Ok to dispense. Typically will follow these people closely for any changes in mood or suicidal ideation. Sending myChart message to patient to be open and honest if depression gets worse or SI occurs. Pharmacist from [facility] would like to advise FAUSTINA Lawrence that patient has history of depression (more situational, per patient, and ) and Xywav can increase/worsen depression symptoms. Also, patient had suicidal ideation at the age of 13-14 and although she never had any specific plans, she did exhibit self-harm behaviors such as cutting. Xywav can increase suicidal thoughts. OK for pharmacy to dispense Xywav to this patient? documented in this encounter [facility] 05-08-2023 Telephone encounter Note Ok to dispense. Typically will follow these people closely for any changes in mood or suicidal ideation. Sending myChart message to patient to be open and honest if depression gets worse or SI occurs. [facility] Work Phone: 05-08-2023 Telephone encounter Note Pharmacist from [facility] would like to advise FAUSTINA Lawrence that patient has history of depression (more situational, per patient, and ) and Xywav can increase/worsen depression symptoms. Also, patient had suicidal ideation at the age of 13-14 and although she never had any specific plans, she did exhibit self-harm behaviors such as cutting. Xywav can increase suicidal thoughts. OK for pharmacy to dispense Xywav to this patient? [facility] 04-24-2023 History of Presen t illness Narrative Images from the original note were not included. [facility] FOLLOW UP TELEHEALTH VISIT-SLEEP Date of last visit: 02/17/[address] Perkins Plan at that time: - Discussed with the patient the possible diagnosis, causes, pathophysiology, and conditions associated with obstructive sleep apnea (JENS). - Reviewed consequences of untreated JENS including causing/impacting HTN, CVA, NJ, arrhythmias, elevated blood sugar levels/DM, hunger/satiety, and depression (among other conditions). - Discussed treatment modalities for JENS including PAP therapy, oral appliance, and surgical interventions (UPPP, Inspire). - Spoke with patient about avoiding driving when drowsy. - Reviewed how alcohol impacts JENS. - Encouraged healthy lifestyle with adequate sleep (7-9 hours per night), diet, and exercise (goal of 150 minutes moderate-brisk exercise per week). - Polysomnogram (PSG) to identify and quantify severity of possible obstructive sleep apnea. - Follow up after sleep study. Interval History: Had HST - no JENS, followed by PSG/MSLT. Results reviewed with the patient. Has severe hypersomnolence. She has previously been on adderall. [place] it took her longer to do tasks, but maybe a little more energy. Reports that she takes celexa and hydroxyzine more for anxiety, agitation. Reports her psychologist and psychiatrist do not feel depression is an issue. Sleeps through alarms. Hard to wake up in the morning since childhood. Always feels tired. Naps are not refreshing. Sleep-Wake Schedule Bedtime: 8-10 P.M. Final wake time: 6:45-7 A.M. (alarms set from 4:15-6:30 am). she does not wake up refreshed. Sleep Latency: instantly, watches videos Awakenings after sleep onset: 1-2x, because of going to the bathroom, and falls back asleep quickly Naps: none Estimated total sleep time: 6-8 hours Narcolepsy symptoms: Sleep paralysis: no Sleep-related hallucinations: no Cataplexy: no Head trauma/viral illness preceding sleepiness: had head injury at age 8 or so Enters dream sleep quickly: no Sleep Metrics: [place] Sleepiness Scale: 13 Past Treatments: Adderall Klonopin Celexa Hydroxyzine Sleep Studies: HST 03/06/23: weight 244 lbs. KALPESH 3.3. SpO2 min 87%. PSG 04/09/2023: Weight 244; AHI 0.7, latency on PSG 27.8 min, no SOREM. Efficiency 88%. Min spo02 89%, 0 PLM MSLT 04/10/2023: mean latency 2.7 min; No SOREMs, ESS 13 Past Medical History Past Medical History: Diagnosis Date Anxiety with depression Arthritis 2014 bilat knees Back pain Daytime sleepiness Difficulty sleeping Fatigue Heartburn moderate HSV-2 infection Hx: UTI (urinary tract infection) Incontinence Irregular menses Joint pain, knee Morbid obesity, unspecified obesity type (HCC) 12/26/2022 Snoring SOBOE (shortness of breath on exertion) Past Surgical History Past Surgical History: Procedure Laterality Date SECTION (HISTORICAL) REFRACTIVE SURGERY WISDOM TOOTH EXTRACTION WRIST SURGERY Right 06/28/[address] RYDER Allergies Allergies Allergen Reactions Metoclopramide Other reaction(s): Other Metronidazole Rash Medications Current Outpatient Medications Medication Instructions cetirizine (ZyrTEC) 10 MG tablet TAKE 1 TABLET BY MOUTH ONCE DAILY FOR 7 DAYS. citalopram (CeleXA) 20 MG tablet No dose, route, or frequency recorded. citalopram (CeleXA) 40 MG tablet No dose, route, or frequency recorded. etonogestrel-ethinyl estradiol (Nuvaring) 0.12-0.015 MG/24HR vaginal ring 1 each, Vaginal etonogestrel-ethinyl estradiol (Nuvaring) 0.12-0.015 MG/24HR vaginal ring 1 each, Vaginal hydrOXYzine HCl (Atarax) 25 MG tablet No dose, route, or frequency recorded. hydrOXYzine pamoate (VISTARIL) 12.5 mg, Oral hydrOXYzine pamoate (VISTARIL) 25 mg, Oral, Every 8 hours PRN lidocaine (Xylocaine) 5 % ointment No dose, route, or frequency recorded. Multiple Vitamin (multivitamin) capsule 1 capsule, Oral, Daily Multiple Vitamin (multivitamin) capsule 1 capsule, Oral, Daily valACYclovir (VALTREX) 1,000 mg, Oral, Daily Social History Social History Tobacco Use Smoking status: Former Types: Cigarettes Quit date: 11/08/2018 Years since quittin.4 Smokeless tobacco: Never Substance Use Topics Alcohol use: Yes Comment: occasionally Family History Family History Problem Relation Name Age of Onset Obesity Mother Other (34507) Mother Optic Neropothy Hyperthyroidism Mother Diabetes Mother Obesity Father Breast cancer Mother's Sister Great Aunt age of onset unknown Cervical cancer Mother's Sister onset unknown Breast cancer Mother's Sister Great Aunt age of onset unknown Breast cancer Maternal Great-Grandmother age of onset unknown Obesity Paternal Grandfather Diabetes Paternal Grandfather Cancer Maternal Grandfather Cancer Maternal Grandmother Review of Systems Review of Systems Constitutional: Positive for fatigue. Physical Exam There were no vitals filed for this visit. General appearance: Well appearing. No acute distress. AAOX3 Head: Normocephalic, without obvious abnormality, atraumatic Eyes: Normal sclera and conjunctiva Lungs: Normal respiratory effort--no dyspnea Skin: Skin color normal. No rashes or lesions Psych: Euthymic Mood, full affect Labs/additional studies: Reviewed in Epic Impression: 1. Idiopathic hypersomnia 28 y/o F with BMI > 30, presented with suspicion of JENS -- snoring, daytime sleepiness, fatigue, but HST came back negative. 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 Found to have severe hypersomnolence on her MSLT (done off citalopram) Recommendations: Discussed test results and diagnosis with patient. Discussed Xywav and stimulants used for IH. R/B/SE of medications discussed. Starting Xywav 3 grams per night. Paperwork to be sent and signed by patient. Given websites for discussion on IH and Xywav. No driving when drowsy. Discussed sleep hygiene- although she seems to get appropriate amounts of sleep, she could fine tune her sleep schedule by setting a consistent bedtime. Avoid caffeine after 3 pm. Follow up 2 months with arash mehta (scheduled during visit time) On this date, 04/24/2023 I have spent 45 minutes reviewing previous notes, test results and face to face with the patient discussing the diagnosis and importance of compliance with the treatment plan as well as documenting on the day of the visit. Patient was seen today via Telehealth by agreement and consent. I used the following Telehealth technology: Audio and video capabilities. Patient location: Patient Location: Home. This patient encounter is appropriate and reasonable under the circumstances: transportation issues . The patient has been advised of the potential risks and limitations of this mode of treatment (including but not limited to the absence of in-person examination) and has agreed to be treated in a remote fashion in spite of them. Any and all of the patient's/patient's family's questions on this issue have been answered and I have made no promises or guarantees to the patient. The patient has also been advised to contact this office for worsening conditions or problems, and seek emergency medical treatment and/or call 911 if the patient deems either necessary. The patient stated that they are currently in the [facility]. If the patient is a minor, permission has been obtained by the parent or guardian for the patient to receive medical care at this visit. documented in this encounter [facility] 04-06-2023 Telephone encounter Note Name of caller: Myrna Contact phone number: [phone] Relationship to Patient: patient Provider: Gregorio CUEVAS Practice: [facility] Chief Complaint/Reason for Call: Pt states she got a call from her Insurance stating that they need more information in regards to her sleep study. Insurance phone # [phone]. Please advise Best time of day caller can be reached: Any Patient advised that office/PCP has 24-48 business hours to return their call: N/A [facility] 04-06-2023 Miscellaneous Notes Name of caller: Myrna Contact phone number: [phone] Relationship to Patient: patient Provider: Gregorio CUEVAS Practice: [facility] Chief Complaint/Reason for Call: Pt states she got a call from her Insurance stating that they need more information in regards to her sleep study. Insurance phone # [phone]. Please advise Best time of day caller can be reached: Any Patient advised that office/PCP has 24-48 business hours to return their call: N/A documented in this encounter [facility] 03-04-2023 Telephone encounter Note Myrna is scheduled for HST on 03/06/23 and her in-lab study for March has been cancelled. [facility] 03-04-2023 Miscellaneous Notes Myrna is scheduled for HST on 03/06/23 and her in-lab study for March has been cancelled. Patient advised of order and given phone number to schedule HST. Spoke with Landon Marquez at the [facility] (CR# 03/04/23 8:13 AM) [place] [id number]. Forwarding this to sleep scheduling so they can schedule the patient for the home sleep study. Thanks! Sara said that patient would be able to get in sooner for HST if our office could get approval. Have entered order for HST. Theresa can you look into getting approval? Have written sleep [employer] labourer to see what the wait time is for HST. Patient states she has been late for work every day, difficult to get up, falls asleep at work around 2 pm. Tired all the time. She is willing to do a home sleep study if that would be quicker. Did advise patient to ask to be placed on cancellation list for the sleep study, as well. Any recommendations? Name of caller: Myrna Contact phone number: [phone] Relationship to Patient: patient Provider: Dr. Perkins Practice: [facility] Chief Complaint/Reason for Call: Patient states that she is scheduled for her SS on 04/17/23, but she is feeling worse. Please advise. Best time of day caller can be reached: Any Patient advised that office/PCP has 24-48 business hours to return their call: Yes documented in this encounter [facility] 03-04-2023 Telephone encounter Note Patient advised of order and given phone number to schedule HST. [facility] 03-04-2023 Telephone encounter Note Spoke with Landon Marquez at the [facility] (CR# 03/04/23 8:13 AM) [place] [id number]. Forwarding this to sleep scheduling so they can schedule the patient for the home sleep study. Thanks! [facility] 03-03-2023 Telephone encounter Note Sara said that patient would be able to get in sooner for HST if our office could get approval. Have entered order for HST. Theresa can you look into getting approval? 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 [facility] 03-03-2023 Telephone encounter Note Patient states she has been late for work every day, difficult to get up, falls asleep at work around 2 pm. Tired all the time. She is willing to do a home sleep study if that would be quicker. Did advise patient to ask to be placed on cancellation list for the sleep study, as well. Any recommendations? [facility] 03-03-2023 Telephone encounter Note Name of caller: Myrna Contact phone number: [phone] Relationship to Patient: patient Provider: Dr. Perkins Practice: [facility] Chief Complaint/Reason for Call: Patient states that she is scheduled for her SS on 04/17/23, but she is feeling worse. Please advise. Best time of day caller can be reached: Any Patient advised that office/PCP has 24-48 business hours to return their call: Yes [facility] 02-17-2023 History of Presen t illness Narrative Neck measurement-15 Images from the original note were not included. [facility] NEW PATIENT OFFICE VISIT-SLEEP MEDICINE 02/17/2023 REFERRING PHYSICIAN: Virginia Miranda MD REASON FOR REFERRAL: Chief Complaint Patient presents with New Patient HPI: Myrna Parekh is a 28 y.o. female. Reports that for last 7-8 years has been a very heavy sleeper. Will turn off alarm without realizing in the morning. Sleep-Wake Schedule Bedtime: 8-10 P.M. Final wake time: 6:45-7 A.M. (alarms set from 4:15-6:30 am). she does not wake up refreshed. Sleep Latency: instantly, watches videos Awakenings after sleep onset: 1-2x, because of going to the bathroom, and falls back asleep quickly Naps: none Estimated total sleep time: 6-8 hours During Sleep: Habitual sleep position: side Snoring: yes Witnessed apneas: yes (during ) Wakes up gasping for air: no Wakes up with heart pounding/racing: no RLS symptoms: She denies an urge to move the legs which interferes with sleep onset or maintenance. Parasomnias: She denies dream enactment or any abnormal behaviors during sleep. + sleep talking. During Wake: She has daytime sleepiness. She has fatigue. She has not fallen asleep while driving Caffeine: coffee 1-2 cups /day Recent weight change: went up and down 20 lbs in the past Sleep Metrics: [place] Sleepiness Scale: 9 STOP-BAN Past Treatments: Klonopin Celexa hydroxyzine Sleep Studies: None Relevant LABS/Studies: Component Latest Ref Rng & Units 01/28/2023 Auto WBC 3.6 - 10.7 10*3/uL 10.8 (H) RBC 3.8 - 5.20 10*6/uL 4.71 Hemoglobin 11.7 - 16.0 g/dL 13.2 Hematocrit 35.0 - 47.0 % 39.8 MCV 80.0 - 98.0 fL 84.5 MCH 26.0 - 34.0 pg 28.0 MCHC 32.0 - 36.0 % 33.2 RDW 11.5 - 14.5 % 13.2 Platelets 140 - 440 10*3/uL 315 Mean Platelet Volume (MPV) 7.4 - 12.4 fL 8.7 Neutrophils Relative 40.0 - 80.0 % 67.6 Lymphocytes Relative 20.0 - 40.0 % 21.7 Monocytes Relative 2.0 - 10.0 % 7.9 Eosinophils Relative 1.0 - 6.0 % 1.7 Basophils Relative 0.0 - 2.0 % 0.6 Immature Grans % <=0.0 % 0.5 (H) Absolute Neutrophils 1.8 - 7.0 10*3/uL 7.3 (H) Lymphocytes Absolute 1.0 - 4.3 10*3/uL 2.3 Monocytes Absolute 0.0 - 0.8 10*3/uL 0.9 (H) Eosinophils Absolute 0.0 - 0.5 10*3/uL 0.2 Basophils Absolute 0.0 - 0.2 10*3/uL 0.1 Immature Grans Absolute <=0.0 10*3/uL 0.1 (H) SODIUM 135 - 145 mmol/L 139 POTASSIUM 3.5 - 5.1 mmol/L 3.9 CHLORIDE 98 - 107 mmol/L 112 (H) Carbon Dioxide (CO2) 22 - 30 mmol/L 27 ANION GAP 3 - 13 mmol/L 0 (L) Urea Nitrogen (BUN) 7 - 17 mg/dL 13 Creatinine 0.52 - 1.04 mg/dL 0.67 GLUCOSE 70 - 100 mg/dL 94 CALCIUM 8.4 - 10.4 mg/dL 8.6 AST (SGOT) 15 - 46 U/L 23 ALT 0 - 34 U/L 24 ALKALINE PHOSPHATASE 38 - 126 U/L 61 ALBUMIN 3.5 - 5.0 g/dL 3.9 BILIRUBIN, TOTAL 0.2 - 1.3 mg/dL 0.6 TOTAL PROTEIN 6.3 - 8.2 g/dL 7.5 eGFR >60.0 mL/min/1.73m*2 >90.0 Past Medical History Past Medical History: Diagnosis Date Anxiety with depression Arthritis 2014 bilat knees Back pain Daytime sleepiness Difficulty sleeping Fatigue Heartburn moderate HSV-2 infection Hx: UTI (urinary tract infection) Incontinence Irregular menses Joint pain, knee Morbid obesity, unspecified obesity type (HCC) 12/26/2022 Snoring SOBOE (shortness of breath on exertion) Past Surgical History Past Surgical History: Procedure Laterality Date SECTION (HISTORICAL) REFRACTIVE SURGERY WISDOM TOOTH EXTRACTION WRIST SURGERY Right 06/28/[address] RYDER Allergies Allergies Allergen Reactions Flagyl [Metronidazole] Metoclopramide Other reaction(s): Other Medications Current Outpatient Medications Medication Instructions citalopram (CeleXA) 20 MG tablet No dose, route, or frequency recorded. etonogestrel-ethinyl estradiol (Nuvaring) 0.12-0.015 MG/24HR vaginal ring 1 each, Vaginal hydrOXYzine pamoate (VISTARIL) 12.5 mg, Oral Multiple Vitamin (multivitamin) capsule 1 capsule, Oral, Daily Social History Social History Tobacco Use Smoking status: Former Types: Cigarettes Quit date: 11/08/2018 Years since quittin.2 Smokeless tobacco: Never Substance Use Topics Alcohol use: Yes Comment: occasionally Family History Family History Problem Relation Name Age of Onset Obesity Mother Other (99736) Mother Optic Neropothy Hyperthyroidism Mother Diabetes Mother Obesity Father Breast cancer Mother's Sister Great Aunt age of onset unknown Cervical cancer Mother's Sister onset unknown Breast cancer Mother's Sister Great Aunt age of onset unknown Breast cancer Maternal Great-Grandmother age of onset unknown Obesity Paternal Grandfather Diabetes Paternal Grandfather Cancer Maternal Grandfather Cancer Maternal Grandmother Family Sleep History: JENS -- mother Review of Systems Constitutional: Positive for fatigue. Psychiatric/Behavioral: Positive for sleep disturbance. Physical Exam: Vitals: 02/17/23 1438 BP: 114/70 BP Location: Left arm Patient Position: Sitting BP Cuff Size: Adult Pulse: 98 Resp: 18 Weight: 244 lb (111 kg) Height: 5' 5.5 (1.664 m) Neck size: 15 General appearance: NAD. Mental Status/Psych: A&O x 3. Euthymic mood, full affect. Skin: No rashes or lesions. Skin palpation normal. Head: Normocephalic, without obvious abnormality, atraumatic Eyes: PERRL, EOM intact. Normal sclera and conjunctiva Neck: Supple, No JVD. No thyromegaly. Lungs: Clear bilaterally. No wheezing. No crackles. No use of accessory muscles. Full respiratory effort. Heart: RRR, S1, S2 normal, no murmur, click, rub or gallop Extremities: extremities normal: no clubbing, no cyanosis, no edema Musculoskeletal: No joint abnormalities. Neurological: CN II-XII grossly intact. Normal gait. Sensation grossly intact to light touch. ASSESSMENT/PLAN: Diagnosis Plan 1. Hypersomnia [facility] [place] [facility] 28 y/o F with BMI > 30, presenting with suspicion of JENS -- snoring, daytime sleepiness, fatigue. - Discussed with the patient the possible diagnosis, causes, pathophysiology, and conditions associated with obstructive sleep apnea (JENS). - Reviewed consequences of untreated JENS including causing/impacting HTN, CVA, NJ, arrhythmias, elevated blood sugar levels/DM, hunger/satiety, and depression (among other conditions). - Discussed treatment modalities for JENS including PAP therapy, oral appliance, and surgical interventions (UPPP, Inspire). - Spoke with patient about avoiding driving when drowsy. - Reviewed how alcohol impacts JENS. - Encouraged healthy lifestyle with adequate sleep (7-9 hours per night), diet, and exercise (goal of 150 minutes moderate-brisk exercise per week). - Polysomnogram (PSG) to identify and quantify severity of possible obstructive sleep apnea. - Follow up after sleep study. signed by Erika Perkins MD On this date, 02/17/2023 I have spent 31 minutes reviewing previous notes, test results and face to face with the patient discussing the diagnosis and importance of compliance with the treatment plan as well as documenting on the day of the visit. documented in this encounter [facility] 02-17-2023 Instructions Lizeth Gregory MA - 02/17/2023 3:00 PM EDT YOUR APPOINTMENT TODAY WAS WITH THE [facility], COPD CLINIC, PULMONARY AND SLEEP MEDICINE OFFICE. PLEASE CALL OUR OFFICE AT [phone] IF YOU HAVE NOT RECEIVED YOUR TEST RESULTS 7 DAYS AFTER TESTING IS COMPLETED. PLEASE REMEMBER TO REQUEST REFILLS AT YOUR OFFICE VISITS. PHONE/FAX REQUESTS REQUIRE 48-72 HOURS FOR RESPONSE. A FRIENDLY REMINDER COPAYS ARE DUE AT TIME OF SERVICE. THANK YOU. Our Patients Are Important! We want to improve and you can help. After your visit we want you to feel: Listened to, Respected and have your health care explained. You may receive a survey asking you about your visit. Please complete the survey. We will use your feedback to make improvements. COVID-19 VACCINATION INFORMATION: PH. [phone] [email or web address] [facility] Central Scheduling [phone] [facility] Sleep Scheduling [phone] documented in this encounter [facility] 12-29-2022 Note nitial New BCC surgi venice patient Navigation & Financial Counseling Discussion Patient Communication: In office SURGEON: [] JIssa [] AD [x] MP [] TB [] LM PROCEDURE: [] LRYGB [x] LSG [] PATSY-S [] PATSY [] UNDECIDED [] REV: SPECIFY: Confirmed pt wants to continue with surgical program/plan [x] YES [] NO (complete program withdrawal note/process) CO-MORBIDS: [x] NONE [] DM []HTN [] JENS []GERD [] OTH: PRIVATE PAY: [x] NO []YES DATE OF INITIAL BENEFITS VERIFICATION: TRANSFER FU: [] YES [x] NO PRIMARY INSURANCE: Payor: [employer] / Plan: CIGNA / Product Type: Commercial / BENEFIT ON PLAN: [] NO [x] YES BENEFIT MAX: [] NO [] YES -- BENEFIT MAX: $ EMPLOYER: DIET AND EXERCISE (DE) REQUIREMENT PRIMARY [] NONE [x]3M [] 6M []9M [] Medicare 4 Months [] SPR (3M) []OTHER: SECONDARY INSURANCE: [employer] BENEFIT ON PLAN: [] NO [x] YES BENEFIT MAX: [] NO [] YES -- BENEFIT MAX: $ AUTH REQUIRED FROM SECONDARY [] NO [] YES DIET AND EXERCISE REQUIREMENT SECONDARY [] NONE []3M [] 6M [] Medicare 4 months [] SPR (3M) []OTHER: ___ [x] Discussed with patient: Financial cost overview (document signed and pt given copy at new pt consult visit with surgeon), Initial appointments: Bariatric Nutrition Assessment (BNA) & Diet and Exercise (DE) Patient to look for yellow envelope in mail. This yellow envelope will contain orders for labs, testing and required clearances. Pt encouraged to complete early in program to prevent delays. Encourage blood work to be draw by 1st DE appointment. [x] Reviewed OOP cost, including: [] Optifast cost of approximately $130-140/week x weeks immediately prior to surgery - used to induce rapid weight loss which results in decrease in size of liver and therefore facilitates laparoscopically surgery approach. [x] Overview of inpatient admission benefits - estimated inpatient co-pays, deductibles and/or co-insurance - Estimated OOP costs form reviewed with patient, and copy given to patient at new pt visit. [x] Reviewed next steps with patient: 1) Scheduled at new pt surgeon visit: Field Examiner (RD) for a Nutrition Assessment (BNA) and Pre-operative Diet and Exercise (DE) appointment #1. [x] Patient reminded to arrive 15 minutes early for check in. Late arrivals may need to be rescheduled. 2) Schedule: Diet and Exercise Apt #2 only scheduled after initial BNA and DE completed, 3) Behavioral Health apt scheduled after DE started. Reviewed rational and goal of Behavioral Health appointments. 4) [x] Reinforced need to cancel any WMI appointments 48 hours in advance. Cautioned NS/Same day cancellations may result in delay in program or program completion hold. Noted: DE series needs to be a monthly series or insurance company may require repeat of the entire series. 5) [x] Smoker/tobacco products including vaping: reviewed need for cessation before surgery clearance and life long abstinence after surgery for best outcomes. Patient navigation to surgery: [x] Explained to patient that average time from initial consult to date of surgery can be 6-8 months. - Process can take longer if there are cancelled appointments, delays in testing and/or additional clearances that needs to be completed. - Reviewed importance of patient active engagement in making and keeping appointments to keep the process moving. - Reinforced need to cancel appointments at least 48 hours in advance. Reviewed that instances of No Shows and Same Day Appointment Cancellations may result in program/surgery delay or hold. [x] Patient advised of importance of having voicemail and MyChart for office communications and lab/testing results before and after surgery. [facility] 12-29-2022 Note BARIATRIC AND METABO LIC SURGERY [facility] INITIAL EVALUATION - HISTORY AND PHYSICAL 12/29/2022 PATIENT: Myrna Parekh DATE OF : 1995 ------ HISTORY OF PRESENT ILLNESS Chief Complaint: Morbid Obesity and associated comorbid conditions. Myrna Parekh is a 27 y.o. female with morbid obesity and associated comorbid conditions who [facility] for evaluation for bariatric surgery. The patient stands Height: 5' 5.5 (166.4 cm) ([facility] HT CHECK) tall with a weight of Weight: 251 lb 12.8 oz (114 kg) , and has a BMI of Body mass index is 41.26 kg/m?.. The patient has failed multiple attempts at non-surgical weight loss, and is now seeking surgical intervention to promote permanent and consistent weight loss. The patient suffers from multiple co-morbidities as a result of morbid obesity as outlined in the past medical history. The patient denies a history of myocardia infarction, deep vein thrombosis, pulmonary embolism, renal failure, hepatic failure, stroke, and seizure. She does smoke, and does drink alcohol (Rare occasion). Vaping daily (5000 puffs within 2 weeks) Sepsis in October (unspecified) Follows with Psychiatry. ([facility] in [place]). Follow with Therapy. Denies hospitalization for anxiety/depression. Some GERD, but managed with diet. Review of Systems Constitutional: Negative. Negative for chills, fatigue and fever. HENT: Negative. Negative for trouble swallowing. Eyes: Negative. Respiratory: Negative. Negative for chest tightness, shortness of breath and wheezing. Cardiovascular: Negative for chest pain and leg swelling. Gastrointestinal: Positive for constipation. Negative for abdominal pain, blood in stool, diarrhea, nausea and vomiting. Endocrine: Negative. Genitourinary: Negative. Musculoskeletal: Negative. Negative for arthralgias and back pain. Skin: Negative. Allergic/Immunologic: Negative. Neurological: Negative. Negative for dizziness and light-headedness. Hematological: Negative. Psychiatric/Behavioral: Negative. The patient is not nervous/anxious. Has Miralax PAST HISTORIES Past Medical History: Diagnosis Date Anxiety with depression Arthritis 2014 bilat knees Back pain Daytime sleepiness Difficulty sleeping Fatigue Heartburn moderate Hx: UTI (urinary tract infection) Incontinence Irregular menses Joint pain, knee Morbid obesity, unspecified obesity type (HCC) 12/26/2022 Snoring SOBOE (shortness of breath on exertion) Past Surgical History: Procedure Laterality Date SECTION (HISTORICAL) REFRACTIVE SURGERY WISDOM TOOTH EXTRACTION WRIST SURGERY Right 06/28/[address] right dorsal mass excision DR RYDER Family History Problem Relation Name Age of Onset Obesity Mother Other ([id number]) Mother Optic Neropothy Hyperthyroidism Mother Diabetes Mother Obesity Father Breast cancer Mother's Sister Great Aunt age of onset unknown Cervical cancer Mother's Sister onset unknown Breast cancer Mother's Sister Great Aunt age of onset unknown Breast cancer Maternal Great-Grandmother age of onset unknown Obesity Paternal Grandfather Diabetes Paternal Grandfather Cancer Maternal Grandfather Cancer Maternal Grandmother Social History Tobacco Use Smoking status: Former Types: Cigarettes Quit date: 11/08/2018 Years since quittin.1 Smokeless tobacco: Never Substance Use Topics Alcohol use: Yes Comment: occasionally Allergies Allergen Reactions Metoclopramide Other reaction(s): Other PHYSICAL EXAM Temp 36.2 ?C (97.1 ?F) Resp 18 Ht 5' 5.5 (1.664 m) Comment: BCC HT CHECK Wt 251 lb 12.8 oz (114 kg) BMI 41.26 kg/m? General: This patient is awake, alert, and oriented, with normal affect and is in no apparent distress. Cardiac: Regular rate and rhythm without evidence of murmur. Respiratory: Clear to auscultation bilaterally with normal effort. Abdomen: Obese, soft, non-tender, non-distended without masses/ No evidence of abdominal hernia / Incisions consistent with previous surgeries. Head and Neck: Obese, normocephalic and atraumatic/soft and supple, no lymphadenopathy or obvious bruits. No thyroidmegaly. Extremities: No cyanosis, clubbing or edema/ No calf tenderness/No restrictions of movement, is ambulatory without assistance. Neurological: Intact x 4 extremities, normal sensation, no focal deficits notes. Skin: Skin cool, warm and dry. No rashes or lesions noted. Rectal: Deferred LABORATORY STUDIES AND IMAGING Laboratory Studies: No results for input(s): NA, K, CL, CO2, BUN, CREATININE, GLUCOSE, CALCIUM in the last 72 hours. No results for input(s): WBC, RBC, HGB, HCT, MCV, MCH, MCHC, RDW, PLT, MPV in the last 72 hours. No results for input(s): ALKPHOS, ALT, AST, PROT, BILITOT, BI (more content not included)... [facility] 12-23-2022 Note HNO ID: [id number] Author: Payton Melo APRN.LAMAR Service: ? Author Type: Candy Puller Type: Progress Notes Filed: 12/24/2022 5:51 PM Note Text: Account Support Associate offered: Patient declines. Myrna is a 27 year old who presents for an annual gynecologic exam without complaints. Menses: on continuous control to suppress menses. LMP 12/14/22 Contraception: Nuva Ring HPV vaccine: Yes Last Pap: 02/04/2018 normal HPV: negative History of abnormal pap: No Last mammogram: 2020normal Sexually active: No History of STDS: chlamydia and HSV Did well after diagnosis and treatment, no further outbreak. Coping well and has worked with support group. Time with current partner: N/A Pain with intercourse: No Postcoital bleeding: No Exercise: not currently Diet: trying low carb Seatbelt use: Yes OB History T0 L0 SAB0 IAB0 Ectopic0 Multiple0 Live Births0 Mule Spinner History LMP: 12/14/2022 (Exact Date), Having periods Age at Menarche: Age at First : Age at Menopause: Mule Spinner History Comments: Sexual Activity: Not Currently; Male; Nuvaring Contraception: No contraception data on record PAST MEDICAL HISTORY Diagnosis Date Anxiety disorder 02/04/2013 (02/25/16): followed by psychiatry Arthritis (02/25/16): previously seen by ortho Constipation 02/04/2013 Environmental allergies (02/25/16): seeing ENT Environmental allergies 02/25/2016 Hydradenitis 2011 Per dermatology Migraine headache 08/09/2014 Overweight 02/25/2016 PMH - PAST MEDICAL HISTORY OF 01/29/2005 color vision Polyarthralgia 02/25/2016 PTSD (post-traumatic stress disorder) 02/04/2013 (02/25/16): followed by psychiatry Severe depression (HCC) (02/25/16): followed by psychiatry PAST SURGICAL HISTORY Procedure Laterality Date EXTRACTION, ERUPTED TOOTH OR EXPOSED ROOT (ELEVATION AND/OR FORCEPS REMOVAL) 03/28/2015 all 4 wisdom teeth PAST SURGICAL HISTORY OF 06/28/2021 cyst removed from right hand FAMILY HISTORY Problem Relation Age of Onset Asthma Mother Thyroid Mother other (sciatic nerve issues) Mother other (carpal tunnel) Mother other (Constipation) Father As a younger child Colon Cancer Maternal Grandfather Asthma Maternal Grandmother Cancer Maternal Grandmother Uterine GI Maternal Grandmother reflux Breast Cancer Maternal Grandmother This was great grandmother other (spinal stenosis) Maternal Grandmother other (Spinal Stenosis) Maternal Aunt other (Spinal Stenosis) Maternal Uncle other (depression) Other maternal side Diabetes Maternal Uncle Lipids Maternal Uncle other (hereditary angioedema) Maternal Aunt SOCIAL HISTORY Social History Tobacco Use Smoking status: Former Packs/day: 0.50 Types: Cigarettes Smokeless tobacco: Never Vaping Use Vaping Use: current everyday user Substances: Nicotine Substance Use Topics Alcohol use: Yes Comment: social Drug use: No REVIEW OF SYSTEMS Abdomen: No abdominal pain, nausea, vomiting, diarrhea, or constipation. No bloating, early satiety, indigestion, or increased flatulence. Bladder: No dysuria, gross hematuria, urinary frequency, urinary urgency, or incontinence. Experiencing stress incontinence. Previously seen by pelvic floor therapy. Breast: No breast lumps, nipple d/c, overlying skin changes, redness or skin retraction. Allergies and current medication updated:Yes EXAM: BP 116/70 Ht 5' 5 (1.65m) Wt 250 lb 12.8 oz (113.8kg) LMP 12/14/2022 BMI 41.74 kg/(m2). GENERAL: pleasant, female in no apparent distress HEENT: Normocephalic, atraumatic, mucus membranes moist, and no lesions NECK: Supple, full range of motion, no adenopathy, and thyroid normal DERMATOLOGY: Normal, without lesions, non-icteric, and non-hirsute BREAST: soft, non-tender, symmetric, no dominant mass, normal nipple-areolar complex, no lymphadenopathy, and no nipple discharge CHEST: Clear to auscultation, Normal inspiratory effort, Regular rate and rhythm, and No murmurs, clicks, rubs or gallops ABDOMEN: soft, non-tender, and no masses PELVIC: external genitalia normal, normal Bartholin's glands, urethra, [place]'s glands, no vulvar lesions, no cervical lesions, good vaginal support, physiologic discharge present, normal appearing perineal body and perianal region BIMANUAL: uterus normal size, shape and consistency, no adnexal masses, non-tender, and no cervical motion tenderness RECTOVAGINAL: deferred. NEURO: alert and oriented x3,exam grossly non-focal EXTREMITIES: normal ASSESSMENT/PLAN: 1. Screening for cervical cancer - ICD9: V76.2, ICD10: Z12.4 (primary diagnosis) - Completed pelvic and breast exam - Encouraged monthly BSE - Follow up for annual exam in one year. - PAP FLUID CERVICAL SCREENING 2. Encounter for screening for human papillomavirus (HPV) - ICD9: V73.81, ICD10: Z11.51 - PAP FLUID CERVICAL SCREENING 3. Screen for STD (sexually transmitted disease) - ICD9: V (more content not included)... [facility] 12-23-2022 History of Presen t illness Narrative Account Support Associate offered: Patient declines. Myrna is a 27 year old who presents for an annual gynecologic exam without complaints. Menses: on continuous control to suppress menses. LMP 12/14/22 Contraception: Nuva Ring HPV vaccine: Yes Last Pap: 02/04/2018 normal HPV: negative History of abnormal pap: No Last mammogram: 2020normal Sexually active: No History of STDS: chlamydia and HSV Did well after diagnosis and treatment, no further outbreak. Coping well and has worked with support group. Time with current partner: N/A Pain with intercourse: No Postcoital bleeding: No Exercise: not currently Diet: trying low carb Seatbelt use: Yes OB History T0 L0 SAB0 IAB0 Ectopic0 Multiple0 Live Births0 Mule Spinner History LMP: 12/14/2022 (Exact Date), Having periods Age at Menarche: Age at First : Age at Menopause: Mule Spinner History Comments: Sexual Activity: Not Currently; Male; Nuvaring Contraception: No contraception data on record PAST MEDICAL HISTORY Diagnosis Date Anxiety disorder 02/04/2013 (02/25/16): followed by psychiatry Arthritis (02/25/16): previously seen by ortho Constipation 02/04/2013 Environmental allergies (02/25/16): seeing ENT Environmental allergies 02/25/2016 Hydradenitis 2011 Per dermatology Migraine headache 08/09/2014 Overweight 02/25/2016 PMH - PAST MEDICAL HISTORY OF 01/29/2005 color vision Polyarthralgia 02/25/2016 PTSD (post-traumatic stress disorder) 02/04/2013 (02/25/16): followed by psychiatry Severe depression (HCC) (02/25/16): followed by psychiatry PAST SURGICAL HISTORY Procedure Laterality Date EXTRACTION, ERUPTED TOOTH OR EXPOSED ROOT (ELEVATION AND/OR FORCEPS REMOVAL) 03/28/2015 all 4 wisdom teeth PAST SURGICAL HISTORY OF 06/28/2021 cyst removed from right hand FAMILY HISTORY Problem Relation Age of Onset Asthma Mother Thyroid Mother other (sciatic nerve issues) Mother other (carpal tunnel) Mother other (Constipation) Father As a younger child Colon Cancer Maternal Grandfather Asthma Maternal Grandmother Cancer Maternal Grandmother Uterine GI Maternal Grandmother reflux Breast Cancer Maternal Grandmother This was great grandmother other (spinal stenosis) Maternal Grandmother other (Spinal Stenosis) Maternal Aunt other (Spinal Stenosis) Maternal Uncle other (depression) Other maternal side Diabetes Maternal Uncle Lipids Maternal Uncle other (hereditary angioedema) Maternal Aunt SOCIAL HISTORY Social History Tobacco Use Smoking status: Former Packs/day: 0.50 Types: Cigarettes Smokeless tobacco: Never Vaping Use Vaping Use: current everyday user Substances: Nicotine Substance Use Topics Alcohol use: Yes Comment: social Drug use: No REVIEW OF SYSTEMS Abdomen: No abdominal pain, nausea, vomiting, diarrhea, or constipation. No bloating, early satiety, indigestion, or increased flatulence. Bladder: No dysuria, gross hematuria, urinary frequency, urinary urgency, or incontinence. Experiencing stress incontinence. Previously seen by pelvic floor therapy. Breast: No breast lumps, nipple d/c, overlying skin changes, redness or skin retraction. Allergies and current medication updated:Yes EXAM: BP 116/70 Ht 5' 5 (1.65m) Wt 250 lb 12.8 oz (113.8kg) LMP 12/14/2022 BMI 41.74 kg/(m^2). GENERAL: pleasant, female in no apparent distress HEENT: Normocephalic, atraumatic, mucus membranes moist, and no lesions NECK: Supple, full range of motion, no adenopathy, and thyroid normal DERMATOLOGY: Normal, without lesions, non-icteric, and non-hirsute BREAST: soft, non-tender, symmetric, no dominant mass, normal nipple-areolar complex, no lymphadenopathy, and no nipple discharge CHEST: Clear to auscultation, Normal inspiratory effort, Regular rate and rhythm, and No murmurs, clicks, rubs or gallops ABDOMEN: soft, non-tender, and no masses PELVIC: external genitalia normal, normal Bartholin's glands, urethra, [place]'s glands, no vulvar lesions, no cervical lesions, good vaginal support, physiologic discharge present, normal appearing perineal body and perianal region BIMANUAL: uterus normal size, shape and consistency, no adnexal masses, non-tender, and no cervical motion tenderness RECTOVAGINAL: deferred. NEURO: alert and oriented x3,exam grossly non-focal EXTREMITIES: normal ASSESSMENT/PLAN: 1. Screening for cervical cancer - ICD9: V76.2, ICD10: Z12.4 (primary diagnosis) - Completed pelvic and breast exam - Encouraged monthly BSE - Follow up for annual exam in one year. - PAP FLUID CERVICAL SCREENING 2. Encounter for screening for human papillomavirus (HPV) - ICD9: V73.81, ICD10: Z11.51 - PAP FLUID CERVICAL SCREENING 3. Screen for STD (sexually transmitted disease) - ICD9: V74.5, ICD10: Z11.3 - GC/CHLAMYDIA DNA DET 4. Encounter for gynecological examination with abnormal finding - ICD9: V72.31, ICD10: Z01.411 - Completed pelvic and breast exam - Encouraged monthly BSE - Follow up for annual exam in one year. 5. Screening for malignant neoplasm of cervix - ICD9: V76.2, ICD10: Z12.4 - Completed pelvic and breast exam - Encouraged monthly BSE - Follow up for annual exam in one year. 6. Encounter for surveillance of vaginal ring hormonal contraceptive device - ICD9: V25.49, ICD10: Z30.44 7. History of PCR DNA positive for HSV2 - ICD9: V12.09, ICD10: Z86.19 8. Class 3 severe obesity due to excess calories without serious comorbidity with body mass index (BMI) of 40.0 to 44.9 in adult (HCC) - ICD9: 278.01, V85.41, ICD10: E66.01, Z68.41 9. Weight loss counseling, encounter for - ICD9: V65.3, ICD10: Z71.3 1) Health maintenance: Pap done with reflex HPV. Nutrition, exercise and routine health maintenance exams reviewed. 2) Contraception: Nuva Ring. Contraceptive options reviewed and information provided. 3) STD screening: Accepted STD check for Gonorrhea and Chlamydia. 4) Follow up one year or sooner as needed Lissett Ordoñez, student LEXY Melo APRN.CNM TEACHING NOTE OF PERSONAL INVOLVEMENT IN CARE: I have interviewed the patient and updated the student's PFS history, and ROS as necessary. I have re-performed the HPI, Physical Examination, Assessment and Plan. documented in this encounter [facility] 12-16-2022 Miscellaneous Notes Patient given results and verbalized understanding of instructions given. Steph Shaw Please notify that covid/flu testing negative. Continue with plan of care as discussed during visit. documented in this encounter [facility] 12-15-2022 Note HNO ID: [id number] Author: Heather Bravo APRN.PRABHAKAR Service: ? Author Type: Nurse Practitioner Type: Progress Notes Filed: 12/15/2022 7:07 PM Note Text: CC: Patient presents with: Cough: Cough, sore throat, fluid behind left ear x 5 days Patient says she was sick about 2 weeks ago and then got better. Patient says she has had some fluid behind the left ear and a dry cough for the last 5 days. Patient said this morning her throat started hurting. Patient says it feels sharp to swallow. HPI: Myrna Parekh is a 27 year old female who presents to the office with complaint of cough, nonproductive and sore throat for the past day. Symptoms are staying the same. Associated symptoms includes sore throat. Denies headache, body aches, fever, nausea, vomiting , and diarrhea. Treatments tried include nothing so far. with no relief of symptoms. Sick contacts: unknown. History of asthma, frequent episodes of bronchitis, chronic bronchitis, bronchiectasis or COPD: No Smoker: No Seasonal/environmental allergies: No The ROS is otherwise negative. The patient's pmh, medications, allergies, and past visits are reviewed. PHYSICAL EXAM: BP 122/78 Pulse 105 Temp 37.2 ?C (99 ?F) Resp 18 Wt 116.6 kg (257 lb) LMP 07/11/2021 (Approximate) SpO2 99% BMI 42.77 kg/m? General appearance: alert, cooperative, pleasant, in no acute distress Head: Normocephalic Eyes: EOM's intact, conjunctiva pink and moist, no icterus, sclera white, non-injected Ears: Right ear: External ear/canal- Normal, TM - clear with good landmarks. Left ear: External ear/canal- Normal, TM - clear with good landmarks Oropharynx:mild erythema, without exudates present Heart: Negative. RRR without obvious murmur, gallop, or rubs. No ectopy. Lungs: clear to auscultation, without rales or wheeze, good air exchange PAST MEDICAL HISTORY Diagnosis Date Anxiety disorder 02/04/2013 (02/25/16): followed by psychiatry Arthritis (02/25/16): previously seen by ortho Constipation 02/04/2013 Environmental allergies (02/25/16): seeing ENT Environmental allergies 02/25/2016 Hydradenitis 2011 Per dermatology Migraine headache 08/09/2014 Overweight 02/25/2016 PMH - PAST MEDICAL HISTORY OF 01/29/2005 color vision Polyarthralgia 02/25/2016 PTSD (post-traumatic stress disorder) 02/04/2013 (02/25/16): followed by psychiatry Severe depression (HCC) (02/25/16): followed by psychiatry PAST SURGICAL HISTORY Procedure Laterality Date EXTRACTION, ERUPTED TOOTH OR EXPOSED ROOT (ELEVATION AND/OR FORCEPS REMOVAL) 03/28/2015 all 4 wisdom teeth PAST SURGICAL HISTORY OF 06/28/2021 cyst removed from right hand ALLERGIES Environmental [Other], Flagyl [Metronidazole], and Tramadol MEDICATIONS furosemide (LASIX) 20 mg tablet Take 20 mg by mouth twice daily. citalopram (CELEXA) 20 mg tablet hydrOXYzine pamoate (VISTARIL) 25 mg capsule Take 25 mg by mouth three times daily as needed. hydrOXYzine HCl (ATARAX) 25 mg tablet ciprofloxacin HCl (CILOXAN) 0.3 % ophthalmic solution Use 1-2 drops inside right lower eyelid(s) every 2 hours while awake for 2 days, then 1-2 drops every 4 hours for next 5 days. lidocaine (XYLOCAINE) 5 % ointment APPLY TO AFFECTED AREA NEEDED FOR UP TO 5 DAYS. Lactobacillus acidophilus (FLORAJEN ACIDOPHILUS) 20 billion cell cap Take 1 capsule by mouth once daily. albuterol (PROVENTIL) 2.5 mg /3 mL (0.083 %) nebulizer solution 2.5 mg. Etonogestrel-Ethinyl Estradiol (NUVARING) 0.12-0.015 mg/24 hr vaginal ring Use 1 Each vaginally as directed. Insert vaginally and leave in place for 3 consecutive weeks, then remove for 1 week. predniSONE (DELTASONE) 20 mg tablet Take 1 tablet by mouth once daily for 5 days. FAMILY HISTORY Problem Relation Age of Onset Asthma Mother Thyroid Mother other (sciatic nerve issues) Mother other (carpal tunnel) Mother other (Constipation) Father As a younger child Colon Cancer Maternal Grandfather Asthma Maternal Grandmother Cancer Maternal Grandmother Uterine GI Maternal Grandmother reflux Breast Cancer Maternal Grandmother This was great grandmother other (spinal stenosis) Maternal Grandmother other (Spinal Stenosis) Maternal Aunt other (Spinal Stenosis) Maternal Uncle other (depression) Other maternal side Diabetes Maternal Uncle Lipids Maternal Uncle other (hereditary angioedema) Maternal Aunt Social History Tobacco Use Smoking status: Every Day Packs/day: 0.50 Types: Cigarettes Smokeless tobacco: Never Substance Use Topics Alcohol use: Yes Comment: social Drug use: No ASSESSMENT/PLAN: 1. Sore throat - ICD9: 462, ICD10: J02.9 (primary diagnosis) - STREP A MOLECULAR (POC) - negative - PREDNISONE 20 MG TABLET - FLUTICASONE PROPIONATE 50 MCG/ACTUATION NASAL SPRAY,SUSPENSION -medication was prescribed to help dry up fluid behind ear. patient did not want this medication at this time. 2. URI, acute - ICD9: 46 (more content not included)... [facility] 12-15-2022 Influenza virus A and B RNA and SARS-CoV-2 (COVID-19) N gene panel HOANG+probe (Resp) COVID 19 RESULT: SARS-CoV-2 (Agent of COVID-19) Not Detected by RT-PCR or equivalent method. This test was developed and its performance characteristics determined by [facility] [place]. This test has been authorized by FDA under an Emergency Use Authorization (EUA). This test has been validated in accordance with the FDA's Guidance Document Policy for Diagnostics Testing in Laboratories Certified to Perform High Complexity Testing under CLIA prior to Emergency use Authorization for Coronavirus Disease 2019 during the Public Health Emergency issued on January 21, 2020. Test performed by [facility], [facility] [place], [address] [id number]. INFLUENZA A PCR: Negative for Influenza A by RT-PCR INFLUENZA B PCR: Negative for Influenza B by RT-PCR [facility] documented in this encounter [facility]11-09-2021 Hospital Discharge instructions* Instructions* Ahmet Avalos DO - 10/01/2021 Follow-up the eye doctor tomorrow. Return if any problems or concerns. * Attachments The following attachments cannot be sent through Care Everywhere. * Corneal Scratches (Uzbek) [facility] Work Phone: 1(336) 842-941708-06-2021 History of Present illness Narrative* Kami Joshi RN - 06/28/2021 9:10 AM EDT PATIENT RECEIVED FROM OR VIA CART TO PHASE II . ALERT SPONT RESP. WITH STAFF RADIOGRAPHER IN ATTENDANCE documented [facility] Work Phone: 1(262) 716-258208-06-2021 Hospital Discharge instructions* Instructions* Chanel Linares PA - 06/28/2021 Bandage: Keep operative splint/dressing on, clean, and dry until follow up appointment in 1-2 weeks. Swelling control: Elevate and Ice for pain control. Immobilization: Encourage range of motion of index finger, long finger, ring finger, little finger, thumb, and elbow in splint/dressing with goal of touching finger tips to splint material/dressing in palm by initial post op appointment. Weightbearing: Non weight bearing in operative extremity. Nerve block for pain control: You received a local injection with lidocaine and epinephrine today. It is normal for your finger tip to look pale or white for up to 10 hours after surgery but if this persists past the 10 hours please call the office immediately. [facility] Phone: Evaluation note* Diagnosis Ganglion cyst of dorsum of right wrist- Primary S/P excision of ganglion cyst documented in this encounter [employer] Phone: Evaluation note* Diagnosis Chronic pain of both knees [facility]* Diagnosis Abrasion of left cornea, initial encounter- Primary [email or web address]: Evaluation [facility]* Diagnosis Suspected 2019 novel coronavirus infection- Primary [facility] Diagnosis Rash- Primary Rash and other nonspecific skin eruption Viral URI with cough Acute upper respiratory infections of unspecified site History of strep pharyngitis Personal history of other infectious and parasitic disease History of sepsis Personal history of other infectious and parasitic disease Vaginal irritation Unspecified noninflammatory disorder of vagina [facility] Diagnosis Vulvar lesion- Primary Other specified noninflammatory disorder of vulva and perineum Vulvar pain Unspecified symptom associated with female genital organs [facility] Diagnosis Viral URI- Primary Acute upper respiratory infections of unspecified site Sore throat Acute pharyngitis Myalgias Fatigue, unspecified type Chills Chills (without fever) [facility] Diagnosis Sore throat- Primary Acute pharyngitis URI, acute Acute upper respiratory infections of unspecified site [facility]* Diagnosis Screening for cervical cancer- Primary Screening for malignant neoplasm of the cervix Encounter for screening for human papillomavirus (HPV) Special screening examination for human papillomavirus (HPV) Screen for STD (sexually transmitted disease) Screening examination for venereal disease Encounter for gynecological examination with abnormal finding Routine gynecological examination Screening for malignant neoplasm of cervix Screening for malignant neoplasm of the cervix Encounter for surveillance of vaginal ring hormonal contraceptive device History of PCR DNA positive for HSV2 Personal history of other infectious and parasitic disease Class 3 severe obesity due to excess calories without serious comorbidity with body mass index (BMI) of 40.0 to 44.9 in adult ([facility]) Weight loss counseling, encounter for Dietary surveillance and counseling [facility]* Diagnosis JENS (obstructive sleep apnea)- Primary Obstructive sleep apnea (adult) (pediatric) documented in this encounter [facility] note* Diagnosis JENS (obstructive sleep apnea)- Primary Obstructive sleep apnea (adult) (pediatric) documented in this encounter [facility] note* Diagnosis Idiopathic hypersomnia- Primary Hypersomnia, unspecified [facility]* Diagnosis Encounter for general adult medical examination without abnormal findings- Primary documented in this encounter [facility] note* Diagnosis Idiopathic hypersomnia- Primary Hypersomnia, unspecified [facility]* Diagnosis Idiopathic hypersomnia Hypersomnia, unspecified documented in this encounter [facility] note* Diagnosis Idiopathic hypersomnia- Primary Hypersomnia, unspecified Anxiety disorder, unspecified type [facility] Attachments The following attachments cannot be sent through Care Everywhere. * Modafinil, ADULT (Uzbek) [facility] Purpose Family History No Family History Records FoundNo Family History Records FoundNo Family History Records FoundNo Family History Records FoundNo Family History Records FoundNo Family History Records FoundNo Family History Records Found Advance Directives No Advanced Directives Records FoundDocuments on File Type Date Recorded Patient Nut Threader Expl anation ACP-Advance Directive ACP-Power of Die Caster Latest Code Status on File Code Status Date Activated Date Inactivated Comments Full Code 06/28/2021 7:04 AM Latest Code Status on File Code Status Date Activated Date Inactivated Comments Full Code 06/28/2021 7:04 AM 06/28/2021 12:03 PM Assessments Diagnosis Family history of breast cancer in female Family history of malignant neoplasm of breast Fibrocystic breast changes of both breasts Breast mass in female Lump or mass in breast Diagnosis Arthralgia, unspecified joint Reason for Referral Specialty Diagnoses / Procedures Referred By Deborah granados Referred To Contact Diagnoses Vaginal irritation Procedures CONSULT TO SSN/SSBN WEAPONS EQUIPMENT OPERATOR Keira Lopez APRN.VMWARE ADMINISTRATOR [address] [place] [address] Referral ID Status Reason Start Date Expiration Date Visits Requested Visits Authorized [id number] Ref Not Required PCP Requested Referral 2 11/21/2023 1 1 Specialty Diagnoses / Procedures Referred By Contac t Referred To Contact Sleep Medicine Diagnoses JENS (obstructive sleep apnea) Procedures Polysomnography Erika Perkins MD [address] [facility] [address] [place] [address] Referral ID Status Reason Start Date Expiration Date V isits Requested Visits Authorized [id number] Pending Review 02/17/2023 08/16/2023 1 1 Specialty Diagnoses / Procedures Referred By Contac t Referred To Contact Sleep Medicine Diagnoses JENS (obstructive sleep apnea) Procedures Home sleep test Erika Perkins MD [address] [facility] [address] [place] [address] [facility] [address] [place] [address] Referral ID Status Reason Start Date Expiration Date Visits Re quested Visits Authorized [id number] Closed 03/03/2023 08/30/2023 1 1 Specialty Diagnoses / Procedures Referred By Contac t Referred To Contact Diagnoses Idiopathic hypersomnia Tessy Thompson, SILVICULTURE FORESTER - TRACK SUPERINTENDENT [address] [facility] [address] [place] [address] Referral ID Status Reason Start Date Expiration Date V isits Requested Visits Authorized [id number] Pending Review 1 1 Referral ID Status Reason Start Date Expiration Date V isits Requested Visits Authorized [id number] Pending Review 1 1 Health Concerns Infection Onset Date Last Indicated Resolved Time COVID-19 Rule-Out 12/15/2022 12/15/2022 Infection Onset Date Last Indicated Resolved Time COVID-19 Rule-Out 12/15/2022 12/15/2022 12/16/2022 6:05 AM EST Additional Source Comments INFORMATION SOURCE (unrecogn ized section and content) DATE CREATED AUTHOR AUTHOR'S ORGANIZ ATION 11/22/2018 [facility] DATE CREATED AUTHOR AUTHOR'S ORGANIZ ATION 07/14/2020 [employer] DATE CREATED AUTHOR AUTHOR'S ORGANIZ ATION 03/31/2022 [facility] DATE CREATED AUTHOR AUTHOR'S ORGANIZ ATION 12/30/2022 [facility] DATE CREATED AUTHOR AUTHOR'S ORGANIZ ATION 11/05/2023 [facility] DATE CREATED AUTHOR AUTHOR'S ORGANIZ ATION 11/29/2023 [facility] Ordered Prescriptions (unrec ognized section and content) Scheduled Active and Recently Administ ered Medications (unrecognized section and content) Continuous Medication Order 06/26/2021 06/27/2021 06/28/2021 lactated ringers infusion Intravenous, at 50 mL/hr, CONTINUOUS, Starting on Thu06/28/21 at 0730, Upon admission to sameday - please start iv if patient does not have iv access. Use 500ml NS for patients on dialysis., Pre-op (day of surgery) 0751 (New Bag - Prov ider: Chetna Starkey RN) PRN Medication Order 06/26/2021 06/27/2021 06/28/2021 0.9 % sodium chloride bolus 500 mL (5.1 mL/kg), Intravenous, at 250 mL/hr, Administer over 2 Hours, ONCE PRN, Nausea, Starting on Thu06/28/21 at 0717, For 1 dose, PACU only 0.9 % sodium chloride infusion 25 mL, Intravenous, at 100 mL/hr, PRN, If patient receiving piggyback infusions without ordered maintenance IV fluids or with frequent/long duration piggyback infusions, Starting on Thu06/28/21 at 0704, Administer at the same rate as the piggyback being infused., Pre-op (day of surgery) diphenhydrAMINE (BENADRYL) injection 12.5 mg 12.5 mg, Intravenous, ONCE PRN, Itching, Starting on Thu06/28/21 at 0717, For 1 dose, PACU only hydrALAZINE (APRESOLINE) injection 5 mg 5 mg, Intravenous, EVERY 10 MIN PRN, High Blood Pressure, Starting on Thu06/28/21 at 0717, PRN for SBP > 160 for 2 consecutive measurements, and if one of the following conditions is met: 1) If IV labetolol is ineffective. 2) If HR is under 60. 3) If patient has heart block, COPD or asthma. If both labetalol and hydralazine ineffective, notify anesthesiologist., PACU only HYDROmorphone (DILAUDID) injection 0.25 mg 0.25 mg, Intravenous, EVERY 5 MIN PRN, Pain Moderate (4-6), Starting on Thu06/28/21 at 0717, For 4 doses, Phase I and Phase II- Initial therapy for moderate pain (4-6). Restricted to a 50 minute time frame starting when the patient can verbally state their pain score. If secondary medications are utilized, do not return to initial therapy medications. SDS and, PACU only HYDROmorphone (DILAUDID) injection 0.25 mg 0.25 mg, Intravenous, EVERY 5 MIN PRN, Pain Moderate (4-6), Starting on Thu06/28/21 at 0717, For 4 doses, Phase I - Secondary therapy to be used after initial therapy medication doses are ineffective . If secondary medications are utilized, do not return to initial therapy medications., PACU only HYDROmorphone (DILAUDID) injection 0.5 mg 0.5 mg, Intravenous, EVERY 5 MIN PRN, Pain Severe (7-10), Starting on Thu06/28/21 at 0717, For 4 doses, Phase I or Phase II- Initial therapy for severe pain (7-10). Restricted to a 50 minute time frame starting when the patient can verbally state their pain score. If secondary medications are utilized, do not return to initial therapy medications. Sameday and, PACU only HYDROmorphone (DILAUDID) injection 1 mg 1 mg, Intravenous, EVERY 5 MIN PRN, Pain Severe (7-10), Starting on Thu06/28/21 at 0717, For 4 doses, Phase I - Secondary therapy to be used after initial therapy medication doses are ineffective. If secondary medications are utilized, do not return to initial therapy medications., PACU only labetalol (NORMODYNE;TRANDATE) injection 5 mg 5 mg, Intravenous, EVERY 10 MIN PRN, High Blood Pressure, Starting on Thu06/28/21 at 0717, PRN for SBP >160 for 2 consecutive measurements, if HR is 60 or greater. If beta marco a is contraindicated (HR less than 60, heart block, COPD or asthma) use hydralazine IV order., PACU only lidocaine PF 1 % injection 1 mL 1 mL, Intradermal, ONCE PRN, IV start, Starting on Thu06/28/21 at 0704, For 1 dose, Pre-op (day of surgery) meperidine (DEMEROL) injection 12.5 mg 12.5 mg, Intravenous, EVERY 5 MIN PRN, Shivering, , Starting on Thu06/28/21 at 0717, May give every 5 minutes to max of 50mg., PACU only ondansetron (ZOFRAN) injection 4 mg 4 mg, Intravenous, ONCE PRN, Nausea, Starting on Thu06/28/21 at 0717, For 1 dose, Initial antiemetic therapy., PACU only oxyCODONE (ROXICODONE) immediate release tablet 10 mg(Linked Group 1) 10 mg, Oral, PRN, Pain Severe (7-10), Starting on Thu06/28/21 at 0717, For 1 dose, PHASE II, PACU only oxyCODONE (ROXICODONE) immediate release tablet 5 mg(Linked Group 1) 5 mg, Oral, PRN, Pain Moderate (4-6), Starting on Thu06/28/21 at 0717, For 1 dose, PHASE II, PACU only promethazine (PHENERGAN) injection 6.25 mg 6.25 mg, Intravenous, ONCE PRN, Nausea, Starting on Thu06/28/21 at 0717, For 1 dose, Caution if used IV:Check IV site for infiltrate prior to and during administration. Secondary antiemetic therapy. For IV administration, dilute to 10ml with normal saline. Must be administered over at least 10 minutes., PACU only sodium chloride flush 0.9 % injection 5-40 mL 5-40 mL, Intravenous, PRN, Line Care, Starting on Thu06/28/21 at 0704, For Line Patency: Peripheral IV = 5 mL; Midline or Central Line = 10 mL/lumen. If following IV push medication, administer flush at same rate as the IV push. Flush volume is determined by type of infusion therapy being given. For non-viscous solutions use: Peripheral IV = 5 mL Midline or Central Line = 10 mL/lumen For viscous solutions (i.e. blood components, parenteral nutrition, contrast media, or after obtaining blood sample) use: Peripheral IV = 10 mL Midline or Central Line = 20 mL/lumen, Pre-op (day of surgery) Linked Groups Order Group 1: oxyCODONE (ROXICODONE) immediate release tablet 5 mgJump to med 5 mg, Oral, PRN, Pain Moderate (4-6), Starting on Thu06/28/21 at 0717, For 1 dose
PHASE II
PACU only Or oxyCODONE (ROXICODONE) immediate release tablet 10 mgJump to med 10 mg, Oral, PRN, Pain Severe (7-10), Starting on Thu06/28/21 at 0717, For 1 dose
PHASE II
PACU only Scheduled Medication Order 09/29/2021 09/30/2021 10/01/2021 erythromycin (ROMYCIN) ophthalmic ointment Left Eye, EVERY 8 HOURS SCHEDULED (3 times per day), First dose on Thu10/01/21 at 2200, Applied to left eye every 6-8 hours. 1921 (Given - Provid er: Maribel Cross RN) fluorescein ophthalmic strip 1 mg (COMPLETED) 1 mg (1 strip), Left Eye, ONCE, On Thu10/01/21 at 1804, For 1 dose, 1 mg = 1 strip 1844 (Given - Provid er: Екатерина Rodriguez RN) tetracaine (TETRAVISC) 0.5 % ophthalmic solution 2 drop (COMPLETED) 2 drop, Left Eye, ONCE, On Thu10/01/21 at 1804, For 1 dose 1844 (Given - Provid er: Екатерина Rodriguez RN) Reason for Visit (unrecogniz ed section and content) Reason Comments Viral Syndrome Sore throat, aches, chills hot flashes.started yesterday Reason Comments Viral Syndrome Was septic with tons ils last week, then had uti and yeast infection. Macrobid seems to have flaired up symptoms. Has green discharge. Started last thursday Reason Comments Rash Took third dose last night, rash is worse now has body aches. Viral Syndrome Need different medic ation still has yeast infection Reason Comments Med Change Request Reason Comments Vaginal Problem Yeast infection Reason Comments Sepsis Pt was septic in oct and was told that strep could have caused it. Reason Comments Refill Request Reason Comments Cough Cough, sore throat, fluid behind left ear x 5 days Reason Comments Results Reason Comments New Patient Specialty Diagnoses / Procedures Referred By Deborah granados Referred To Contact Sleep Medicine Diagnoses Hypersomnia Procedures [place] OFFICE/OUTPATIENT NEW HIGH MDM 60-74 MINUTES Tessy Collado, SILVICULTURE FORESTER - VMWARE ADMINISTRATOR [address] [place] [address] [place] [address] [facility] [address] [place] [address] Referral ID Status Reason Start Date Expiration Date Visits Requested Visits Authorized [id number] Pending Review Specialty Services Required 12/10/2022 06/08/2023 1 1 Reason Onset Date Comments feeling worse 03/03/2023 Reason Onset Date Comments sleep study 04/06/2023 Reason Onset Date Comments Discuss Medications 05/08/2023 Reason Onset Date Comments Epidemic Concern 08/23/2023 Reason Onset Date Comments Med Refill 10/12/2023 Care Teams (unrecognized sec tion and content) Fishing Rod Trimmer Relationship Specialty Start Date End Date Virginia Miranda MD [address] [place] [id number] PCP - General Family Medicine 02/27/21 Fishing Rod Trimmer Relationship Specialty Start Date End Date Virginia Miranda MD [address] [place] [id number] PCP - General Family Medicine 02/27/21 Fishing Rod Trimmer Relationship Specialty Start Date End Date Arianne Ball [address] [place] [address] PCP - General Family Medicine 12/15/18 Fishing Rod Trimmer Relationship Specialty Start Date End Date Arianne Ball [address] [place], [place] [phone] PCP - General Family Medicine 12/15/18 Fishing Rod Trimmer Relationship Specialty Start Date End Date Arianne Ball [address] [place], [place] [phone] PCP - General Family Medicine 12/15/18 Fishing Rod Trimmer Relationship Specialty Start Date End Date Arianne Ball [address] [place] [address] PCP - General Family Medicine 12/15/18 Fishing Rod Trimmer Relationship Specialty Start Date End Date Arianne Ball [address] [place] [address] PCP - General Family Medicine 12/15/18 Fishing Rod Trimmer Relationship Specialty Start Date End Date Arianne Ball [address] [place] [address] PCP - General Family Medicine 12/15/18 Fishing Rod Trimmer Relationship Specialty Start Date End Date Arianne Ball [address] [place] [address] PCP - General Family Medicine 12/15/18 Fishing Rod Trimmer Relationship Specialty Start Date End Date Arianne Ball MD [address] [place] [address] PCP - General Family Medicine 12/15/18 Fishing Rod Trimmer Relationship Specialty Start Date End Date Arianne Ball MD [address] [place] [address] PCP - General Family Medicine 12/15/18 Fishing Rod Trimmer Relationship Specialty Start Date End Date Arianne Ball MD [address] [place] [address] PCP - General Family Medicine 12/15/18 Fishing Rod Trimmer Relationship Specialty Start Date End Date Arianne Ball MD [address] [place] [address] PCP - General Family Medicine 12/15/18 Fishing Rod Trimmer Relationship Specialty [place] [address] [place] [address] [place] [address] PCP - General Family Medicine 12/15/18 Fishing Rod Trimmer Relationship Specialty Start Date End Date Virginia Miranda MD [address] [place] [id number] PCP - General 02/27/21 Parissgheladio Jaki, [address] [place] [address] Surgeon General Surgery 12/26/22 Fishing Rod Trimmer Relationship Specialty Start Date End Date Virginia Miranda MD [address] [place] [id number] PCP - General 02/27/21 Parissgheladio Jaki, [facility] [address] [place] [address] Surgeon General Surgery 12/26/22 Fishing Rod Trimmer Relationship Specialty Start Date End Date Virginia Miranda MD [address] [place] [id number] PCP - General 02/27/21 Parissgheladio Jaki, [address] [place] [address] Surgeon General Surgery 12/26/22 Fishing Rod Trimmer Relationship Specialty Start Date End Date Virginia Miranda MD [address] [place] [id number] PCP - General 02/27/21 Poissasgheladio Jaki, [address] [place] [address] Surgeon General Surgery 12/26/22 Fishing Rod Trimmer Relationship Specialty Start Date End Date Virginia Miranda MD [address] [place] [id number] PCP - General 02/27/21 Jaki Craven DO [address] [place], [place] [id number] Surgeon General Surgery 12/26/22 Fishing Rod Trimmer Relationship Specialty Start Date End Date Virginia Miranda MD [address] [place] [id number] PCP - General 02/27/21 Jaki Craven DO [address] [place] [address] Street [address] [place], [place] [id number] Surgeon General Surgery 12/26/22 Fishing Rod Trimmer Relationship Specialty Start Date End Date Virginia Miranda MD [address] [place] [id number] PCP - General 02/27/21 Jaki Craven DO [address] [place] [address] [address] [place], [place] [id number] Surgeon General Surgery 12/26/22 Fishing Rod Trimmer Relationship Specialty Start Date End Date Virginia Miranda MD [address] [place] [id number] PCP - General 02/27/21 Jaki Craven DO [address] [place] [address] Surgeon General Surgery 12/26/22 Fishing Rod Trimmer Relationship Specialty Start Date End Date Virginia Miranda MD [address] [place], [place] [id number] PCP - General 02/27/21 Jaki Craven DO [address] [facility] [address] [place] [address] Surgeon General Surgery 12/26/22 Fishing Rod Trimmer Relationship Specialty Start Date End Date Virginia Miranda MD [address] [place], [place] [id number] PCP - General 02/27/21 Jaki Craven DO [address] [facility] [address] [place], [place] [id number] Surgeon General Surgery 12/26/22 Source Comments (unrecognize d section and content) In the event this informatio n is protected by the Federal Confidentiality of Alcohol and Drug Abuse Patient Records regulations: The Federal rules restrict any use of the information to criminally investigate or prosecute any alcohol or drug abuse patient.[facility] the event this information is protected by the Federal Confidentiality of Alcohol and Drug Abuse Patient Records regulations: The Federal rules restrict any use of the information to criminally investigate or prosecute any alcohol or drug abuse patient.[facility] the event this information is protected by the Federal Confidentiality of Alcohol and Drug Abuse Patient Records regulations: The Federal rules restrict any use of the information to criminally investigate or prosecute any alcohol or drug abuse patient.[facility] the event this information is protected by the Federal Confidentiality of Alcohol and Drug Abuse Patient Records regulations: The Federal rules restrict any use of the information to criminally investigate or prosecute any alcohol or drug abuse patient.[facility] the event this information is protected by the Federal Confidentiality of Alcohol and Drug Abuse Patient Records regulations: The Federal rules restrict any use of the information to criminally investigate or prosecute any alcohol or drug abuse patient.[facility] the event this information is protected by the Federal Confidentiality of Alcohol and Drug Abuse Patient Records regulations: The Federal rules restrict any use of the information to criminally investigate or prosecute any alcohol or drug abuse patient.[facility] the event this information is protected by the Federal Confidentiality of Alcohol and Drug Abuse Patient Records regulations: The Federal rules restrict any use of the information to criminally investigate or prosecute any alcohol or drug abuse patient.[facility] the event this information is protected by the Federal Confidentiality of Alcohol and Drug Abuse Patient Records regulations: The Federal rules restrict any use of the information to criminally investigate or prosecute any alcohol or drug abuse patient.[facility] the event this information is protected by the Federal Confidentiality of Alcohol and Drug Abuse Patient Records regulations: The Federal rules restrict any use of the information to criminally investigate or prosecute any alcohol or drug abuse patient.[facility] the event this information is protected by the Federal Confidentiality of Alcohol and Drug Abuse Patient Records regulations: The Federal rules restrict any use of the information to criminally investigate or prosecute any alcohol or drug abuse patient.[facility] the event this information is protected by the Federal Confidentiality of Alcohol and Drug Abuse Patient Records regulations: The Federal rules restrict any use of the information to criminally investigate or prosecute any alcohol or drug abuse patient.[facility] the event this information is protected by the Federal Confidentiality of Alcohol and Drug Abuse Patient Records regulations: The Federal rules restrict any use of the information to criminally investigate or prosecute any alcohol or drug abuse patient.[facility] FOR RECORDS PERTAINING TO PATIENTS WHO ARE OR HAVE BEEN ENROLLED IN A CHEMICAL DEPENDENCY/SUBSTANCEABUSE PROGRAM, SOME INFORMATION MAY BE OMITTED. This clinical summary was aggregated from multiple sources. Caution should be exercised in using it in the provision of clinical care. This summary normalizes information from multiple sources, and as a consequence, information in this document may materially change the coding, format and clinical context of patient data. In addition, data may be omitted in some cases. CLINICAL DECISIONS SHOULD BE BASED ON THE PRIMARY CLINICAL RECORDS. [facility] [employer] Document [employer] software [facility]. provides no warranty or guarantee of the accuracy or completeness of information in this document.
[2023-12-04 19:23] LABS: Internal QC Validated? YES +Cl - CLEAR BKGD; Pregnancy, Serum, hCG Quali. NEGATIVE Negative; Record Kit Lot#, Serum Preg. 667200
[2023-12-04 19:24] LABS: Anion Gap 5 (5-15); BUN 11 mg/dL (7-18); BUN/Creat Ratio 16.1 RATIO (10-20); Calcium,Total 8.9 mg/dL (8.5-10.1); Chloride 106 mmol/L (98-107); Creatinine, Serum 0.68 mg/dL (0.55-1.02); EST Glomerular Filtration Rate 110 mL/min (>60); Est Glom Filt Rate - Afr Amer 133 mL/min (>60); Estimated Creatinine Clearance 156.51 ml/min; Glucose 94 mg/dL (74-106); Sodium Level 139 mmol/L (136-145)
[2023-12-04 20:01] VITALS: BP 110/67; PULSE 80; RESP 16; TEMP 36.8; O2SAT 99
== END 2023-12-04 21:49 | disposition home or self-care (01) ==
PROVIDERS: Emergency Provider Emergency Medicine; PCP Family Medicine; Visit Provider Emergency Medicine
DX: R42 Dizziness and giddiness (principal); R11.0 Nausea; Z87.891 Personal history of nicotine dependence; E86.0 Dehydration
CPT/HCPCS: 80048; 84703; 85025; 96360; 96361; 99283; J7030; A4216